=== PATIENT | male | born 1950 | race Caucasian/White ===

== ENCOUNTER → 2016-11-13 | Outpatient (CLI) | payer BC, MEDICARE ==
--- NOTE | 2016-11-13 11:40 | XR ---
"EXAMINATION TYPE: XR chest 2V DATE OF EXAM: 11/13/2016 11:24 AM HISTORY: Shortness of breath. COMPARISON: None. TECHNIQUE: Single view of the chest is submitted. FINDINGS: Demonstrated are scattered senescent parenchymal change. There is a right upper lobe mass noted measuring 3.8 x 2.8 cm. Malignancy is not excluded and further workup with CT is advised. The heart is stable. Hilar and mediastinal structures are within normal limits. Degenerative changes are seen of the dorsal spine. IMPRESSION: 1. There is a right upper lobe mass noted measuring 3.8 x 2.8 cm. Malignancy is not excluded and fur ther workup with CT is advised. A Yellow message has been communicated to Enrique Estrada DO via the [employer] | Critical Result sy stem on 11/13/2016 11:38 AM, Message ID [id number]."
== END ==
LOC: RADXRMAIN 11:13
PROVIDERS: ATTEND Family Medicine
DX: R91.8 Other nonspecific abnormal finding of lung field (principal); R06.02 Shortness of breath
CPT/HCPCS: 71020

== ENCOUNTER → 2016-11-17 | Outpatient (CLI) | payer MEDICARE ==
--- NOTE | 2016-11-17 09:59 | CT ---
EXAMINATION TYPE: CT chest wo con DATE OF EXAM: 11/17/2016 9:50 AM COMPARISON: Chest x-ray from 4 days ago. HISTORY: Patient complains of unresolving cough, chest congestion, and bronchitis. Patient had an ab normal CXR at Doctor's office. CT DLP: 296.4 mGycm. Automated Exposure Control for Dose Reduction was Utilized. TECHNIQUE: CT scan of the thorax is performed without IV contrast. FINDINGS: LUNGS: Mild underlying emphysematous change is present with apical scarring and subpleural bleb forma tion. Corresponding to chest x-ray abnormality there is suspicious oval mass in the posterior aspect right upper lobe measuring 3.1 x 1.8 cm on axial image 17. Some dependent atelectatic changes seen in both lower lobes. No pleural effusion or pneumothorax is seen bilaterally. Tracheobronchial tree is patent. MEDIASTINUM: Lack of IV contrast is noted to limit evaluation for mediastinal and especially hilar a denopathy. There is borderline right paratracheal lymph node measuring 1.4 x 1.0 cm on axial image 22 . There are prominent but subcentimeter prevascular and subcarinal lymph nodes. No cardiomegaly or pericardial effusion is seen. Mild coronary artery calcification proximal LAD is noted. OTHER: No additional significant abnormality is seen. IMPRESSION: Suspicious right upper lobe mass is confirmed, neoplasm needs to BE considered. Consider PET/CT or CT guided sampling. Case discussed with ordering physician via telephone at time of dictation. A Document Only message has been documented for Enrique Estrada DO in the [employer] system on 11/17/2016 9:57 AM, Message ID [id number].
== END | disposition home or self-care (01) ==
LOC: RADCTMAIN 07:28
PROVIDERS: ATTEND Family Medicine
DX: R91.8 Other nonspecific abnormal finding of lung field (principal)
CPT/HCPCS: 71250

== ENCOUNTER 2016-11-27 10:18 | Day surgery (SDC) | payer BC, MEDICARE ==
[2016-11-25 08:57] VITALS: BMI 25.1
[~2016-11-27 10:18] MED LIST: ALBUTEROL NEB (CONC) 2.5 MG/0.5 ML INHALATION ONE; LACTATED RINGERS 1,000 ML IV ONE; LIDOCAINE 2% (PF) 20 MG/ML 10ML INHALATION ONE
[2016-11-27 10:53] VITALS: RESP 16
[2016-11-27] MEDS ORDERED: LIDOCAINE 1% 20 ML VIAL (10MG/ML) FOR IV START INTRADERMA ONE (11:06)
[2016-11-27 11:25] LABS: Glucose,Whole Blood 92 mg/dL (75-99)
[2016-11-27] MEDS ORDERED: PROPOFOL 10 MG/ML 20 ML VIAL IV ONE (13:07)
[2016-11-27] MEDS ORDERED: LIDOCAINE 1% INJ 10MG/ML (20 ML MDV) ONE (13:07)
[2016-11-27] MEDS ORDERED: SUCCINYLCHOLINE CHLORIDE 100 MG/5 ML SYR IV ONE (13:07)
[2016-11-27] MEDS ORDERED: MIDAZOLAM 2 MG/2 ML VIAL ONE (13:07)
[2016-11-27] MEDS ORDERED: fentaNYL (PF) 50 MCG/ML 2 ML AMP ONE (13:07)
[2016-11-27] MEDS ORDERED: ePHEDrine 50 MG/ML 1 ML AMP ONE (13:07)
--- NOTE | 2016-11-27 13:10 | CT ---
EXAMINATION TYPE: CT Chest payam Cooper Protocol DATE OF EXAM: 11/27/2016 11:44 AM COMPARISON: CT chest 11/17/2016 HISTORY: 66-year-old male pre-bronchial navigation TECHNIQUE: Contiguous axial scanning of the chest without IV contrast. Imaging performed for purposes of endobronchial navigation. Both inspiratory and expiratory scanning as well as coronal and sagitta l reconstructions. CT DLP: 633 mGycm Automated exposure control for dose reduction was used. FINDINGS: Redemonstrated 3.3 cm mass posterior right upper lobe. A posterior subsegmental upper lobe bronchus e xtends to the mass. Heart is normal size without pericardial effusion. Coronary vessel calcifications are mild. Aorta nor mal caliber with conventional arch vessel branching anatomy. Redemonstrated mildly enlarged 1.2 cm ri ght tracheobronchial angle lymph node. Nonenlarged AP window lymph nodes. Some subpleural reticulations at the lung bases could represent some interstitial fibrosis. No consol idation or pleural effusion. Visualized upper abdomen shows no gross abnormality. No osseous destructive process. IMPRESSION: KNOWN 3.3 CM MASS POSTERIOR RIGHT UPPER LOBE TO WHICH A POSTERIOR SUBSEGMENTAL UPPER LOBE BRONCHUS EX TENDS. EQUIVOCAL MILDLY ENLARGED 1.2 CM RIGHT TRACHEOBRONCHIAL ANGLE LYMPH NODE.
[2016-11-27] MEDS ORDERED: LACTATED RINGERS 1,000 ML IV ONE (13:15)
--- NOTE | 2016-11-27 14:00 | P.PCN ---
Date of Procedure: 11/27/16 Preoperative Diagnosis: RUL mass Postoperative Diagnosis: RUL mass, mediastinal lymphadenopathy Anesthesia: GERARDA Surgeon: Jigna Giraldo [employer] Interpreter #1: Clarisa Montiel Estimated Blood Loss (ml): 0 Pathology: other Condition: stable Disposition: same day Operative Findings: The procedure was done on the navigational guidance. The patient was taken to the CAT scan department where the pads were applied and the patient underwent a computed tomography scan of the chest for marking and planning purposes. The CAT scan was downloaded into the bed navigational system and the target lesion in the right upper lobe was identified and marked. The navigational planning was performed and following that all this information was downloaded into the system. Then the patient was brought into the operating room and the patient was placed under general anesthesia, intubated and placed on a mechanical ventilator. The flexible bronchoscope was inserted used through the orotracheal tube and a complete airway inspection was done. The visualized airways into the trachea, bilateral mainstem bronchi, right upper lobe bronchus , right middle lobe bronchus, right lower lobe bronchus, left upper lobe bronchus, left lower lobe bronchussegments and subsegments. All of these airways were patent and within normal limits. The bronchoscope was then moved to the distal trachea with transbronchial aspirate of the right paratracheal lymph node was done using a 19-gauge cytology needle. A total of 4 passes were taken and the samples were inspected by pathology at the bedside. Following that, using the navigational bronchoscopy system, the bronchoscope was directed to the apical posterior segment of the right upper lobe. Under direct visualization, the samples of the right upper lobe lesion was taken using transbromchial biopsy and transbronchial brushings. The target lesion was approached within few millimeter distance.. At the end of the procedure flexible bronchoscope was removed. The patient was extubated and transferred to recovery in stable condition. A chest x-ray without rule out pneumothorax. The patient was discharged home once cleared by anesthesia. Operative complications. No bleeding. Total amount of bleeding was less than 5 mL.
[2016-11-27 14:13] VITALS: TEMP 97.2
--- NOTE | 2016-11-27 14:31 | XR ---
EXAMINATION TYPE: XR chest 1V DATE OF EXAM: 11/27/2016 2:22 PM COMPARISON: Prior chest x-ray November 13, 2016. CT chest earlier today. HISTORY: Right lung mass status post bronchoscopy with biopsy. TECHNIQUE: Single AP portable frontal view of the chest is obtained. FINDINGS: There is is persistent right upper lobe mass. No sizable pneumothorax is seen after bronc hoscopy with biopsy The cardiac silhouette size is within normal limits. The osseous structures are intact. IMPRESSION: No evidence of complication related to bronchoscopy and tissue sampling.
[2016-11-27] MEDS ORDERED: ALBUTEROL NEB (CONC) 2.5 MG/0.5 ML INHALATION STA (15:05)
[2016-11-27 15:43] VITALS: BP 140/70; PULSE 76
== END 2016-11-27 15:57 | disposition home or self-care (01) ==
LOC: ORWHC2ENDO 10:18
PROVIDERS: ATTEND Internal Medicine Critical Care Medicine
DX: C96.9 Malignant neoplasm of lymphoid, hematopoietic and related tissue, unspecified (principal); Z79.82 Long term (current) use of aspirin; Z79.899 Other long term (current) drug therapy; Z87.891 Personal history of nicotine dependence; E78.00 Pure hypercholesterolemia, unspecified; I73.9 Peripheral vascular disease, unspecified; E11.9 Type 2 diabetes mellitus without complications; Z88.2 Allergy status to sulfonamides; Z91.09 Other allergy status, other than to drugs and biological substances
CPT/HCPCS: 94640; 88104; 88305; 88173; 88342; 88341; 71010; 71250; 31628; 31633; 31623; 31627; J2250; J2001; J3010; J0330; J2704

== ENCOUNTER → 2016-11-29 | Outpatient (CLI) | payer MEDICARE | END | disposition home or self-care (01) | LOC: RADPETMAIN 10:12 | PROVIDERS: ATTEND Internal Medicine Critical Care Medicine | DX: Z53.9 Procedure and treatment not carried out, unspecified reason (principal) ==

== ENCOUNTER → 2017-01-24 | Outpatient (CLI) | payer MEDICARE ==
[2017-01-24 09:09] LABS: Basophils % (A) 0 %; CH 30.2; Eosinophils # (A) 0.1 k/uL (0-0.7); Eosinophils % (A) 2 %; HCT 37.8 % (39.0-53.0); HDW 2.85; HGB 12.9 gm/dL (13.0-17.5); Luc # (Auto) 0.06; Luc % (Auto) 2; Lymphocytes # (A) 0.4 k/uL (1.0-4.8); Lymphocytes % (A) 16 %; MCH 29.5 pg (25.0-35.0); MCHC 34.1 g/dL (31.0-37.0); MCV 86.5 fL (80.0-100.0); Mean Platelet Volume 7.9; Monocytes # (A) 0.1 k/uL (0-1.0); Monocytes % (A) 5 %; Neutrophils % (A) 74 %; RBC 4.37 m/uL (4.30-5.90); RDW 14.4 % (11.5-15.5); WBC 2.7 k/uL (3.8-10.6); WBC (Perox) 2.75
== END | disposition home or self-care (01) ==
LOC: LABWHC1 08:38
PROVIDERS: ATTEND Internal Medicine Hematology & Oncology
DX: C34.11 Malignant neoplasm of upper lobe, right bronchus or lung (principal); E11.9 Type 2 diabetes mellitus without complications; E78.5 Hyperlipidemia, unspecified; H35.30 Unspecified macular degeneration
CPT/HCPCS: 36415; 85025

== ENCOUNTER → 2017-02-07 | Outpatient (CLI) | payer MEDICARE ==
--- NOTE | 2017-02-10 09:14 | PE ---
Nuclear medicine PET/CT HISTORY: Lung carcinoma Patient received 15.3 mCi F-18 FDG intravenously. Delayed scanning was performed from the skull base through the mid thighs. Localization and attenuation correction CT scan was performed. Exam is correl ated to prior nuclear medicine PET/CT 06 December 2016 Neck and chest: There is been some interval improvement. No evident adenopathy, however in the retroc aval pretracheal region there is a focus of hypermetabolic uptake compatible with a small node. SUV i s 2.9 which is reduced from prior of 6.7. The right hilar and subcarinal hypermetabolic uptake is no longer evident. Right upper lobe lung soft tissue mass measures approximately 3.6 cm in transverse di mension by 2 cm in AP dimension. There is improvement, SUV is essentially equivalent to background do wn from previous measured 7.5 however. Abdomen pelvis: No adrenal mass. No evident liver mass. No suspicious hypermetabolic uptake. Postop c hange status post femoral-femoral bypass graft are noted. Osseous structures: Postop change noted to the right hip. IMPRESSION: There is improvement as compared to previous exam.
== END | disposition home or self-care (01) ==
LOC: RADPETMAIN 09:32
PROVIDERS: ATTEND Internal Medicine Critical Care Medicine
DX: R91.8 Other nonspecific abnormal finding of lung field (principal)
CPT/HCPCS: 78815; A9552

== ENCOUNTER → 2017-02-17 | Outpatient (CLI) | payer MEDICARE ==
[2017-02-17 15:30] LABS: CH 30.4; CHCM 35.1; HCT 36.7 % (39.0-53.0); HGB 12.9 gm/dL (13.0-17.5); MCH 30.8 pg (25.0-35.0); MCHC 35.3 g/dL (31.0-37.0); MCV 87.2 fL (80.0-100.0); Mean Platelet Volume 6.9; RDW 15.9 % (11.5-15.5); WBC 3.5 k/uL (3.8-10.6)
[2017-02-17 15:36] LABS: Partial Thromboplastin Time 23.5 sec (22.0-30.0); Prothrombin Time 10.6 sec (9.0-12.0)
[2017-02-17 15:37] LABS: Amorphous Sediment,Urine Rare /hpf; Appearance,Urine Turbid (Clear); Bilirubin,Urine Negative (Negative); Glucose,Urine (UA) Negative (Negative); Ketones,Urine Negative (Negative); Leukocyte Esterase,Urine Negative (Negative); Nitrite,Urine Negative (Negative); PH, Urine 7.5 (5.0-8.0); Particle Count 13132; Protein,Urine Negative (Negative); Specific Gravity,Urine 1.012 (1.001-1.035); UA Billing (MACRO vs. MICRO) MICRO; Urobilinogen,Urine <2.0 mg/dL (<2.0)
[2017-02-17 15:38] LABS: Potassium 4.5 mmol/L (3.5-5.1)
== END | disposition home or self-care (01) ==
LOC: LABPAT 14:53
PROVIDERS: ATTEND Thoracic Surgery (Cardiothoracic Vascular Surgery)
DX: Z01.812 Encounter for preprocedural laboratory examination (principal)
CPT/HCPCS: 80051; 81001; 82947; 85027; 85610; 85730; 86850; 86900; 86901

== ENCOUNTER 2017-02-20 09:50 | Inpatient (IN) | payer MEDICARE ==
[2017-02-18 09:20] VITALS: BMI 24.3
[~2017-02-20 09:50] MED LIST changes: -ALBUTEROL NEB (CONC) 2.5 MG/0.5 ML INHALATION ONE; +DEXAMETHASONE SOD PHOSPHATE 10 MG/ML 1 ML VIAL IV ONE; +HYDROmorphone 1 MG/ML 1 ML SYRINGE IVP PRN; -LACTATED RINGERS 1,000 ML IV ONE; +LIDOCAINE 1% 20 ML VIAL (10MG/ML) FOR IV START INTRADERMA PRN; -LIDOCAINE 2% (PF) 20 MG/ML 10ML INHALATION ONE; +MIDAZOLAM 2 MG/2 ML VIAL IV PRN; +ONDANSETRON 4 MG/2 ML VIAL IVP ONE; +SCOPOLAMINE 1.5MG/72HR PATCH TRANSDERM ONE; +ceFAZolin 2 GM in SODIUM CHLORIDE 0.9% 100 ML IVPB ONE; +metroNIDAZOLE-NS PMX 500 MG in SALINE 1 100ML.BAG IVPB ONE
[2017-02-20] MEDS: LACTATED RINGERS 1,000 ML IV SCH ×2 (10:20→19:03)
[2017-02-20 10:23] LABS: Glucose,Whole Blood 104 mg/dL (75-99)
[2017-02-20] MEDS ORDERED: GLYCOPYRROLATE 0.2 MG/ML 2 ML VIAL ONE (11:47)
[2017-02-20] MEDS ORDERED: fentaNYL (PF) 50 MCG/ML 2 ML AMP ONE (11:47)
[2017-02-20] MEDS ORDERED: MIDAZOLAM 2 MG/2 ML VIAL ONE (11:47)
[2017-02-20] MEDS ORDERED: NEOSTIGMINE 1 MG/ML 10 ML VIAL ONE (11:47)
[2017-02-20] MEDS ORDERED: PROPOFOL 10 MG/ML 20 ML VIAL IV ONE (11:47)
[2017-02-20] MEDS ORDERED: ePHEDrine 50 MG/ML 1 ML AMP ONE (11:47)
[2017-02-20] MEDS ORDERED: VECURONIUM 10 MG VIAL IV ONE (11:47)
[2017-02-20] MEDS ORDERED: LIDOCAINE 1% INJ 10MG/ML (20 ML MDV) ONE (11:47)
[2017-02-20] MEDS ORDERED: SUCCINYLCHOLINE CHLORIDE 100 MG/5 ML SYR IV ONE (11:47)
[2017-02-20] MEDS ORDERED: ONDANSETRON 4 MG/2 ML VIAL IVP PRN (12:42)
[2017-02-20] MEDS ORDERED: BISACODYL 10 MG SUPP RECTAL PRN (12:42)
[2017-02-20] MEDS ORDERED: METOCLOPRAMIDE 5 MG/ML 2 ML VIAL IVP PRN (12:42)
[2017-02-20] MEDS ORDERED: HYDROcodone/APAP 5-325MG 1 EACH TAB PO PRN (12:54)
[2017-02-20] MEDS ORDERED: NALOXONE 0.4 MG/ML 1 ML VIAL IV PRN (12:55)
[2017-02-20] MEDS ORDERED: LACTATED RINGERS 1,000 ML IV ONE (14:25)
[2017-02-20] MEDS: BUPIVACAINE (PF) 0.5% 31.3 ML, HYDROMORPHONE (PF) 5 MG in SODIUM CHLORIDE 0.9% 218 ML EPIDURAL PRN ×4 (15:13→17:13)
--- NOTE | 2017-02-20 15:17 | P.OP ---
Date of Procedure: 02/20/17 Preoperative Diagnosis: Lung cancer right upper lobe stage IIIa status post induction chemoradiation Postoperative Diagnosis: Same Procedure(s) Performed: Right thoracotomy, right upper lobectomy, mediastinal lymph node dissection Implants: Anesthesia: MARLON Surgeon: Sean Marie [employer] Teacher #1: Braeden Hernandez Estimated Blood Loss (ml): 50 IV fluids (ml): 800 Pathology: other (Right upper lobe, lymph node stations R4, 7, R8, R9, R 11) Condition: stable Disposition: PACU Indications for Procedure: Patient is a 66-year-old male presented with a right upper lobe carcinoma with evidence of both hilar and right paratracheal metastasis was staged as IIIa was treated with induction chemo radiation had a good response and is now admitted for right upper lobectomy Operative Findings: There were moderate adhesions in the chest cavity. The fissures were incomplete. Majority of the lymph nodes were anthracotic. There were some very densely adherent lymph nodes present in the hilum R 11 region as well as in the R4 region. Tumor was present in the posterior segment of the right upper lobe. Description of Procedure: The patient was brought to the operating room intubated with a double lumen endotracheal tube following induction of anesthesia. He was turned in the left lateral decubitus position and the right chest sterilely prepped and draped. Posterior lateral thoracotomy incision was performed. The chest was entered in the fifth interspace. Intercostals were undercut anteriorly and posteriorly and rib spreaders were placed. The chest was explored and adhesions were taken down. Dissection was begun in the fissure and the pulmonary artery was identified at the junction of the greater and lesser fissures. Attention was directed anteriorly and the branches of the superior pulmonary vein draining the upper lobe were identified. These were dissected out and encircled and ligated and divided with the Endo ANTHONY thin stapler. Dissection was carried superiorly onto the pulmonary artery and the truncus anteriosus was identified. Dissection was very difficult in this region. It was decided to move posteriorly and identify the lymph nodes. The inferior pulmonary ligament was mobilized. R9 and R8 lymph nodes were dissected out and sent for permanent section. Dissection was carried up posteriorly to the mainstem bronchus and the level VII lymph nodes were dissected out and sent for permanent section. We carried the dissection anteriorly and identified the ernesto between the upper lobe bronchus and bronchus intermedius. Gentle dissection was carried out here and we were able to then connect our initial dissection at the base of the fissures with this dissection. This allows us to divide the greater fissure posteriorly with a single firing of an Endo ANTHONY 60 medium thick stapler. Carried out dissection along the pulmonary artery identifying the posterior segmental branch of the pulmonary artery. This was dissected out and doubly ligated with 0 silk sutures and divided. Dissection was carried anteriorly beneath the lesser fissure and connected through to the dissection of the pulmonary veins anteriorly this allowed us to pass an Endo ANTHONY medium thick stapler and divided the lesser fissure. We now began dissection carefully up along the pulmonary artery to the truncus anteriosus. Carefully dissected around the truncus and were able to divide it with a Endo ANTHONY thin stapler. R 11 lymph nodes along the right upper lobe bronchus were dissected back onto the upper lobe and the bronchus was ligated and divided with an Endo ANTHONY thick stapler. Lobectomy specimen was handed off the field for permanent section. Dissection was carried up along the mainstem bronchus and beneath the azygos vein onto the trachea. No R 10 lymph nodes were identified. Dissection was continued in the right paratracheal region and a very large and fibrotic lymph node mass was identified adherent to the vena cava, careful dissection was performed to excise this in its entirety. In order to facilitate this difficult dissection, the azygos vein was divided with the Endo ANTHONY vascular stapler. On completion of the lymph node dissection good hemostasis was noted throughout. The lymph nodes were all sent for permanent section. The chest was irrigated with warm water and the lung inflated and no air leaks noted. 28- Swedish chest tube was placed through separate stab incision and positioned posterior apically. It was secured with 0 Ethibond suture. Rib blocks were performed at levels 3,4,5,6 and 7 with the Endo ice cryoablation system. The lung was again inflated. Ribs were reapproximated with #1 Vicryl. Muscle layers closed with 0 Vicryl. Subcutaneous tissues were closed with 2-0 Vicryl. Skin was closed with 3-0 Vicryl subcuticular stitch. Dry sterile dressing was applied patient was turned supine and extubated and transferred to recovery room in stable condition. Blood loss for the case was 50 mL.
[2017-02-20] MEDS ORDERED: fentaNYL (PF) 50 MCG/ML 2 ML AMP INTRATHECA ONE (15:34)
--- NOTE | 2017-02-20 15:49 | XR ---
EXAMINATION TYPE: XR chest 1V DATE OF EXAM: 02/20/2017 CLINICAL HISTORY: Postoperative right thoracotomy TECHNIQUE: Single AP portable upright view of the chest is obtained. COMPARISON: Chest x-ray from November 27, 2016. PET CT February 07, 2017. FINDINGS: There is interval right-sided partial pneumonectomy with new right apical chest tube. No s izable pneumothorax is evident. There is new subtle right-sided volume loss with tracheal shift. No s uspicious focal airspace opacity or pleural effusion is seen bilaterally. Cardiac silhouette size is within normal limits. Visualized osseous structures are intact. Small amount of subcutaneous emphysem a right chest wall is noted. IMPRESSION: Interval right-sided partial pneumonectomy with right-sided chest tube, no sizable pneumo thorax.
[2017-02-20 17:43] LABS: Basophils % (A) 0 %; CHCM 35.4; Eosinophils % (A) 0 %; HGB 12.7 gm/dL (13.0-17.5); Luc # (Auto) 0.05; Luc % (Auto) 1; Lymphocytes # (A) 0.2 k/uL (1.0-4.8); Lymphocytes % (A) 3 %; MCH 30.3 pg (25.0-35.0); MCHC 34.4 g/dL (31.0-37.0); MCV 88.1 fL (80.0-100.0); Mean Platelet Volume 6.4; Monocytes # (A) 0.3 k/uL (0-1.0); Monocytes % (A) 6 %; Neutrophils % (A) 89 %; RDW 15.9 % (11.5-15.5); WBC 4.4 k/uL (3.8-10.6); WBC (Perox) 4.94
[2017-02-20 18:12] LABS: Glucose,Whole Blood 159 mg/dL (75-99)
[2017-02-20 18:55] LABS: ALT 36 U/L (21-72); AST 35 U/L (17-59); Alkaline Phosphatase 57 U/L (38-126); Anion Gap 11 mmol/L; Blood Urea Nitrogen 15 mg/dL (9-20); Calcium 8.9 mg/dL (8.4-10.2); Carbon Dioxide 23 mmol/L (22-30); Chloride 109 mmol/L (98-107); Glucose 149 mg/dL (74-99); Non-African American GFR(MDRD) >60 (>60 ml/min/1.73 sqM); Potassium 4.2 mmol/L (3.5-5.1); Sodium 143 mmol/L (137-145); Total Bilirubin 1.1 mg/dL (0.2-1.3); Total Protein 6.2 g/dL (6.3-8.2)
[2017-02-20] MEDS: HEPARIN SODIUM,PORCINE 5,000 UNIT/ML 1 ML VIAL SQ SCH (19:04)
[2017-02-20] MEDS: DEXTROSE 5%-0.45% NACL 1,000 ML IV SCH (19:04)
[2017-02-20] MEDS ORDERED: LORATADINE 10 MG TAB PO PRN (20:02)
[2017-02-20 21:01] LABS: Hemoglobin A1C 5.7 % (4.2-6.1)
[2017-02-20] MEDS: ceFAZolin 2 GM in SODIUM CHLORIDE 0.9% 100 ML IVPB SCH (21:26)
[2017-02-20 21:31] LABS: Glucose,Whole Blood 148 mg/dL (75-99)
[2017-02-20] MEDS: INSULIN LISPRO (humaLOG) 300 UNIT/3 ML VIAL SQ SCH (21:35)
[2017-02-21] MEDS: HEPARIN SODIUM,PORCINE 5,000 UNIT/ML 1 ML VIAL SQ SCH ×4 (00:41→23:44)
[2017-02-21] MEDS: diphenhydrAMINE 25 MG CAP PO PRN ×4 (02:52→20:02)
[2017-02-21] MEDS: ceFAZolin 2 GM in SODIUM CHLORIDE 0.9% 100 ML IVPB SCH (03:06)
[2017-02-21 04:59] LABS: Anisocytosis Slight; Basophils % (A) 0 %; CH 30.7; CHCM 34.1; Eosinophils % (A) 0 %; HCT 35.2 % (39.0-53.0); HDW 2.96; HGB 11.7 gm/dL (13.0-17.5); Luc # (Auto) 0.22; Luc % (Auto) 4; Lymphocytes # (A) 0.3 k/uL (1.0-4.8); Lymphocytes % (A) 5 %; MCH 30.1 pg (25.0-35.0); MCHC 33.3 g/dL (31.0-37.0); MCV 90.4 fL (80.0-100.0); Mean Platelet Volume 7.7; Monocytes # (A) 0.7 k/uL (0-1.0); Monocytes % (A) 13 %; Neutrophils % (A) 77 %; RBC 3.89 m/uL (4.30-5.90); RDW 16.3 % (11.5-15.5); WBC 5.2 k/uL (3.8-10.6); WBC (Perox) 5.42
[2017-02-21 05:10] LABS: Anion Gap 8 mmol/L; Blood Urea Nitrogen 15 mg/dL (9-20); Calcium 8.5 mg/dL (8.4-10.2); Carbon Dioxide 24 mmol/L (22-30); Chloride 107 mmol/L (98-107); Glucose 110 mg/dL (74-99); Magnesium 2.1 mg/dL (1.6-2.3); Non-African American GFR(MDRD) >60 (>60 ml/min/1.73 sqM); Phosphorous 3.2 mg/dL (2.5-4.5); Potassium 4.3 mmol/L (3.5-5.1); Sodium 139 mmol/L (137-145)
[2017-02-21 06:31] LABS: Glucose,Whole Blood 120 mg/dL (75-99)
[2017-02-21] MEDS: INSULIN LISPRO (humaLOG) 300 UNIT/3 ML VIAL SQ SCH ×4 (06:32→20:05)
--- NOTE | 2017-02-21 07:45 | XR ---
EXAMINATION TYPE: XR chest 1V portable DATE OF EXAM: 02/21/2017 CLINICAL HISTORY: Difficulty breathing progress study. Postop right lung surgery progress study. TECHNIQUE: Single AP portable upright view of the chest is obtained. COMPARISON: Chest x-ray from one day earlier FINDINGS: There is stable right apical chest tube. No sizable pneumothorax is evident. There is pers istent subtle right -sided volume loss with mediastinal shift. There is new patchy left basilar linea r atelectasis. Cardiac silhouette size remains within normal limits. Visualized osseous structures ar e intact. Small amount of subcutaneous emphysema right chest wall is redemonstrated. IMPRESSION: New patchy left basilar linear atelectasis. No sizable right-sided pneumothorax with ches t tube in place.
[2017-02-21] MEDS: PANTOPRAZOLE 40 MG TABLET PO SCH (08:21)
[2017-02-21] MEDS ORDERED: ATORVASTATIN 40 MG TAB PO SCH (09:00)
--- NOTE | 2017-02-21 10:11 | P.PN ---
Subjective Principal diagnosis: Lung cancer right upper lobe stage IIIa, status post induction chemoradiation POD #1 right thoracotomy, right upper lobectomy, mediastinal lymph node dissection Patient is currently sitting up in bed in no acute distress. Does state he has increased pain in his right chest tube site. States he ambulated in the hallway twice yesterday. Objective - Vital Signs Vital signs: Vital Signs Temp 98.2 F 02/21/17 04:00 Pulse 80 02/21/17 07:00 Resp 18 02/21/17 07:00 BP 126/52 02/21/17 07:00 Pulse Ox 94 L 02/21/17 07:00 Intake & Output 02/20/17 02/21/17 02/21/17 18:59 06:59 18:59 Intake Total 1369.7 2740 50 Output Total 635 2295 215 Balance 734.7 445 -165 Weight 82.7 kg 84.1 kg Intake: IV 1319.7 650 50 Dextrose 5%-0.45% NaCl 1, 450 50 000 ml @ 50 mls/hr IV . Q20H DESMOND Rx#:[id number] ceFAZolin 2 gm In Sodium 200 Chloride 0.9% 100 ml @ 100 mls/hr IVPB Q8H DESMOND Rx#:[id number] Intake, IV Titration 50 50 Amount Dextrose 5%-0.45% NaCl 1, 50 50 000 ml @ 50 mls/hr IV . Q20H DESMOND Rx#:[id number] Oral 2040 Output: Chest Tube Drainage 265 40 Chest Tube Right Lateral 265 40 Chest Urine 585 2030 175 Estimated Blood Loss 50 Other: Voiding Method Indwelling Catheter Indwelling Catheter - Constitutional General appearance: Present: cooperative, no acute distress - Respiratory Details: Lungs sounds diminished bilaterally. Respirations even, nonlabored. Currently on 2 L nasal cannula with oxygen saturation 99%. Able to achieve 2500 ml on incentive spirometry. Right pleural chest tube to -20 cm wall suction, drained 175 ml fluid overnight, 500 mL since surgery. No air leak present. - Cardiovascular Details: S1, S2 present. Regular rate and rhythm, normal sinus rhythm on telemetry. - Gastrointestinal Gastrointestinal Comment(s): Abdomen soft, nontender, nondistended. Active bowel sounds 4 quadrants. Tolerating diet. - Genitourinary Genitourinary Comment(s): Lemon present draining clear, yellow urine. Output 75-350 mL/h overnight. - Musculoskeletal Musculoskeletal: Present: gait normal, strength equal bilaterally - Psychiatric Psychiatric: Present: A&O x's 3, appropriate affect, intact judgment & insight - Allied health notes Allied health notes reviewed: nursing - Labs CBC & Chem 7: 02/21/17 04:50 02/21/17 04:50 Labs: Abnormal Lab Results - Last 24 Hours (Table) 02/20/17 02/20/17 02/20/17 Range/Units 10:19 17:28 18:11 RBC 4.20 L (4.30-5.90) m/uL Hgb 12.7 L (13.0-17.5) gm/dL Hct 37.0 L (39.0-53.0) % RDW 15.9 H (11.5-15.5) % Lymphocytes # 0.2 L (1.0-4.8) k/uL Chloride (98-107) mmol/L Glucose (74-99) mg/dL POC Glucose (mg/dL) 104 H 159 H (75-99) mg/dL Total Protein (6.3-8.2) g/dL 02/20/17 02/20/17 02/21/17 Range/Units 18:25 21:29 04:50 RBC 3.89 L (4.30-5.90) m/uL Hgb 11.7 L (13.0-17.5) gm/dL Hct 35.2 L (39.0-53.0) % RDW 16.3 H (11.5-15.5) % Lymphocytes # 0.3 L (1.0-4.8) k/uL Chloride 109 H (98-107) mmol/L Glucose 149 H (74-99) mg/dL POC Glucose (mg/dL) 148 H (75-99) mg/dL Total Protein 6.2 L (6.3-8.2) g/dL 02/21/17 02/21/17 Range/Units 04:50 06:28 RBC (4.30-5.90) m/uL Hgb (13.0-17.5) gm/dL Hct (39.0-53.0) % RDW (11.5-15.5) % Lymphocytes # (1.0-4.8) k/uL Chloride (98-107) mmol/L Glucose 110 H (74-99) mg/dL POC Glucose (mg/dL) 120 H (75-99) mg/dL Total Protein (6.3-8.2) g/dL - Imaging and Cardiology Chest x-ray: image reviewed Assessment and Plan (1) Cancer of upper lobe of right lung Status: Acute (2) Mass of upper lobe of right lung Status: Acute (3) Diabetes mellitus type 2 in nonobese Status: Acute (4) Hypertension Status: Acute (5) Hyperlipidemia Status: Acute (6) Tobacco dependence in remission Status: Acute (7) COPD (chronic obstructive pulmonary disease) Status: Acute (8) PAD (peripheral artery disease) Status: Acute Plan: 1. Maintain chest tube to -20 cm wall suction. Monitor output. 2. Wean O2 as tolerated. Encourage incentive spirometry use. 3. Await pathology results. 4. Continue current medication regimen. Medical comorbidities to be managed by internal medicine service. 5. Continue pain management with epidural per anesthesia services with breakthrough pain medication as ordered. 6. Monitor daily labs, chest x-rays. 7. Increase activity, ambulate in hallway. 8. GI/DVT prophylaxis. 9. More recommendations as patient progresses. Time with Patient: Greater than 30
--- NOTE | 2017-02-21 10:21 | P.PN ---
Progress Note - Text 02/21 950am 66-year-old male status post right thoracotomy with Dr. Marie. Patient is in the ICU, seen this morning elevated for pain control epidural solution running at 7 mL an hour with a pain score of 4 at rest and 8 on movement of coughing. Hemodynamically stable, no motor or sensory deficits. Epidural solution increased from 9 mL an hour and the nurse was informed..
[2017-02-21 12:57] LABS: Glucose,Whole Blood 105 mg/dL (75-99)
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
[2017-02-21] MEDS: ASCORBIC ACID 500 MG TAB PO SCH (13:20)
[2017-02-21] MEDS: MULTIVITAMINS, THERA 1 EACH TAB PO SCH (13:20)
[2017-02-21] MEDS: DEXTROSE 5%-0.45% NACL 1,000 ML IV SCH (14:12)
[2017-02-21] MEDS ORDERED: TEMAZEPAM 15 MG CAP PO PRN (16:02)
[2017-02-21] MEDS: BUPIVACAINE (PF) 0.5% 31.3 ML, HYDROMORPHONE (PF) 5 MG in SODIUM CHLORIDE 0.9% 218 ML EPIDURAL PRN (16:27)
[2017-02-21] MEDS: KETOROLAC 30 MG/ML 1 ML VIAL IVP SCH ×3 (16:28→23:41)
[2017-02-21] MEDS: CALCIUM CARB-VIT D 500MG-200UN 1 EACH TAB PO SCH (18:20)
[2017-02-21] MEDS: MAGNESIUM OXIDE 400 MG TAB PO SCH (18:20)
[2017-02-21 18:21] LABS: Glucose,Whole Blood 119 mg/dL (75-99)
[2017-02-21 20:03] LABS: Glucose,Whole Blood 135 mg/dL (75-99)
[2017-02-21] MEDS: VIT A,C & E-LUTEIN-MINERALS 1 EACH TAB PO SCH (20:58)
[2017-02-21] MEDS: ATORVASTATIN 10 MG TAB PO SCH (20:58)
[2017-02-21] MEDS ORDERED: ALBUMIN HUMAN 5% 250 ML in EMPTY BAG 1 BAG IVPB ONE (22:29)
--- NOTE | 2017-02-21 22:44 | CONS ---
DATE OF CONSULTATION: 02/21/2017 REASON FOR CONSULTATION: Advice regarding diabetes and other multiple medical issues requested by Dr. Marie. HISTORY OF PRESENT ILLNESS: This 66-year-old gentleman with a past history of diabetes type 2, GERD, hyperlipidemia, non-small cell lung cancer, stage IIIA, being followed by Dr. Estrada and Dr. Giraldo in the outpatient setting, underwent right thoracotomy, right upper lobectomy with mediastinal lymph node dissection for lung cancer. Right upper lobe stage IIIA, status post the induction of chemoradiation by Dr. Marie. Postoperatively, patient is closely monitored. I see at this time the patient has chest tube in situ. Patient complains of pain. Patient is complaining of insomnia, also. The blood sugars have been followed, are between 110 and 105. There is no history of any fever, rigors, chills. No history of headache, loss of consciousness, seizures. PAST MEDICAL HISTORY: History of diabetes mellitus, history of GERD, hyperlipidemia, non-small cell lung cancer, history of anxiety. Medications prior to admission include the home medications are: 1. Vitamin E. 2. Zinc. 3. Copper. 4. Lutein 1 capsule p.o. b.i.d. 5. [place]-3 fatty acids 1 capsule daily. 6. Multivitamin 1 p.o. daily. 7. [place] 5 mg every 6 hours p.r.n. 8. Calcium with vitamin D3, 1 p.o. daily. 9. Zocor 20 mg p.o. q.h.s. 10. Tylenol 500 b.i.d. p.r.n. 11. Zantac 150 mg p.o. daily p.r.n. 12. Magnesium oxide 250 mg p.o. daily. 13. Claritin 10 mg daily p.r.n. 14. Glucosamine 750 mg p.o. daily. 15. Vitamin C 500 mg p.o. daily. 16. Motrin 200 mg to 400 mg every 6 hours p.r.n. ALLERGIES: IODINE, OTT, PERFUMES, SULFA. FAMILY HISTORY: Leukemia in the family. SOCIAL HISTORY: Previous history of smoking. No history of current smoking or alcohol intake. REVIEW OF SYSTEMS: ENT: No diminishing hearing. No diminished vision. CARDIOVASCULAR: No angina or palpitations. The rest as mentioned earlier. RESPIRATORY: As mentioned earlier. GI: No nausea. : No dysuria. NERVOUS: No numbness or weakness. ALLERGY/IMMUNOLOGY: No asthma or hay fever. MUSCULOSKELETAL: As mentioned earlier. HEMATOLOGY/ONCOLOGY: No history of anemia. ENDOCRINE: History of diabetes. No history of hypothyroidism. CONSTITUTIONAL: As mentioned earlier. DERMATOLOGY: Negative. RHEUMATOLOGY: Negative. PSYCHIATRY: As mentioned earlier. PHYSICAL EXAM: Patient alert and oriented x3. Pulse is 79, blood pressure 120/60, respirations 16, temperature 99.2, pulse ox 97% on room air. HEENT: Conjunctivae normal. Oral mucosa moist. NECK: No jugular venous distention. No carotid bruits. No lymph node enlargement. No thyroid enlargement. CARDIOVASCULAR: S1 and S2 muffled. No S3. No S4. RESPIRATORY: Breath sounds diminished in the bases. A few scattered rhonchi. Breath sounds markedly diminished on the right side. Chest tube drain is present. Otherwise, no bronchial breath sounds. ABDOMEN: Soft, nontender. No mass palpable. LEGS: No edema. No swelling. NERVOUS SYSTEM: Higher functions as mentioned earlier. Moves all 4 limbs. No focal motor or sensory deficits. LYMPHATIC: No lymphadenopathy in neck, axillae or groins. SKIN: No ulcer, rash, bleeding. LABS: WBC 5.8, hemoglobin is 11.7. Otherwise sod 139, potassium 4.3, glucose 110, 120, 105. ASSESSMENT: 1. Status post right thoracotomy, right upper lobectomy and mediastinal lymph node dissection for non-small cell lung cancer, right upper lobe stage IIIA, status post induction of chemotherapy, radiation. 2. Diabetes mellitus type 2. 3. History of gastroesophageal reflux disease. 4. Hyperlipidemia. 5. History of degenerative joint disease. 6. History of macular degeneration. 7. History of peripheral vascular disease with history of previous femoral-femoral vascular bypass. 8. History open reduction and internal fixation of the right femur. 9. History of anxiety, not otherwise specified. 10. Remote history of nicotine dependence. 11. FULL CODE. RECOMMENDATIONS AND DISCUSSION: In this 66-year-old gentleman who presented with multiple complex medical issues, we will monitor the patient closely, continue with current medications and symptomatic treatment. Otherwise, I recommend to resume the home medications, DVT prophylaxis, incentive spirometry. Closely follow with Pulmonary. Guarded prognosis because of multiple complex medical issues. Further recommendations to follow. See orders for further details. Patient may be asked to follow with Dr. Enrique Estrada closely after discharge. Thank you, Dr. Marie, for letting us participate in this patient.
[2017-02-22] MEDS: diphenhydrAMINE 25 MG CAP PO PRN ×3 (02:52→20:06)
[2017-02-22 03:06] LABS: Glucose,Whole Blood 107 mg/dL (75-99)
[2017-02-22 04:16] LABS: Anisocytosis Slight; Basophils % (A) 0 %; CH 30.7; CHCM 33.8; Eosinophils # (A) 0.1 k/uL (0-0.7); Eosinophils % (A) 1 %; HCT 32.1 % (39.0-53.0); HDW 3.06; HGB 10.7 gm/dL (13.0-17.5); Luc # (Auto) 0.21; Luc % (Auto) 4; Lymphocytes # (A) 0.5 k/uL (1.0-4.8); Lymphocytes % (A) 10 %; MCH 30.5 pg (25.0-35.0); MCHC 33.3 g/dL (31.0-37.0); MCV 91.5 fL (80.0-100.0); Mean Platelet Volume 7.9; Monocytes # (A) 0.7 k/uL (0-1.0); Monocytes % (A) 14 %; Neutrophils # (A) 3.3 k/uL (1.3-7.7); Neutrophils % (A) 70 %; RBC 3.51 m/uL (4.30-5.90); WBC 4.7 k/uL (3.8-10.6); WBC (Perox) 4.49
[2017-02-22 04:43] LABS: Anion Gap 6 mmol/L; Blood Urea Nitrogen 23 mg/dL (9-20); Calcium 8.2 mg/dL (8.4-10.2); Carbon Dioxide 26 mmol/L (22-30); Chloride 100 mmol/L (98-107); Glucose 123 mg/dL (74-99); Non-African American GFR(MDRD) >60 (>60 ml/min/1.73 sqM); Phosphorous 2.6 mg/dL (2.5-4.5); Potassium 4.3 mmol/L (3.5-5.1); Sodium 132 mmol/L (137-145)
[2017-02-22] MEDS: KETOROLAC 30 MG/ML 1 ML VIAL IVP SCH ×4 (05:45→23:52)
--- NOTE | 2017-02-22 07:33 | XR ---
EXAMINATION TYPE: XR chest 1V portable DATE OF EXAM: 02/22/2017 CLINICAL HISTORY: Difficulty breathing progress study. Postop right partial pneumonectomy. TECHNIQUE: Single AP portable upright view of the chest is obtained. COMPARISON: Chest x-ray from one day earlier FINDINGS: There is stable right sided chest tube. No sizable pneumothorax is evident. There is persi stent right -sided volume loss with mediastinal shift. There is persistent patchy left basilar linear atelectasis. Some increased right lung markings may reflect developing edema and/or infiltrates. Car diac silhouette size remains within normal limits. Visualized osseous structures are intact. Increasi ng subcutaneous emphysema right chest wall is noted. IMPRESSION: Increasing right-sided subcutaneous emphysema noted. No new sizable pneumothorax is noted . Subtle increased opacity right lung may reflect developing edema and/or infiltrates. Patchy left ba silar atelectasis is stable.
[2017-02-22] MEDS ORDERED: IPRATROPIUM-ALBUTEROL 3 ML NEB INHALATION PRN (07:57)
--- NOTE | 2017-02-22 08:04 | P.PN ---
Subjective Principal diagnosis: Lung cancer right upper lobe stage IIIa, status post induction chemoradiation POD #2 right thoracotomy, right upper lobectomy, mediastinal lymph node dissection Patient is currently sitting up in bed in no acute distress. States his pain is better controlled. Chest tube placed to waterseal yesterday. Patient had low urine output overnight, 250 mL albumin infused with increased diuresis. Objective - Vital Signs Vital signs: Vital Signs Temp 98.3 F 02/22/17 04:00 Pulse 69 02/22/17 07:00 Resp 14 02/22/17 07:00 BP 90/49 02/22/17 07:00 Pulse Ox 97 02/22/17 07:00 Intake & Output 02/21/17 02/22/17 02/22/17 18:59 06:59 18:59 Intake Total 1026.65 1930 Output Total 3075 1246 Balance -2048.35 684 Weight 84.1 kg 84.7 kg Intake: IV 280 120 Dextrose 5%-0.45% NaCl 1, 280 120 000 ml @ 50 mls/hr IV . Q20H [facility] Rx#:[id number] Intake, IV Titration 146.65 250 Amount Albumin Human 5% 250 ml 250 In Empty Bag 1 bag @ 250 mls/hr IVPB ONCE ONE Rx#: [id number] Bupivacaine (Pf) 0.5% 31. 146.65 3 ml Hydromorphone (Pf) 5 mg In Sodium Chloride 0. 9% 218 ml @ Per Protocol EPIDURAL .Q0M PRN Rx#: [id number] Oral 600 1560 Output: Chest Tube Drainage 300 440 Chest Tube Right Lateral 300 440 Chest Urine 2775 806 Other: Voiding Method Indwelling Catheter Indwelling Catheter ABP, PAP, CO, CI - Last Documented Arterial Blood Pressure 138/48 - Constitutional General appearance: Present: cooperative, no acute distress - Respiratory Details: Lungs sounds diminished bilaterally. Respirations even, nonlabored. Currently on 2 L nasal cannula with oxygen saturation 97%. Able to achieve 2000 mL on his incentive spirometry. Right pleural chest tube to waterseal, drained 350 mL serous fluid overnight, 700 mL in the last 24 hours. - Cardiovascular Details: S1, S2 present. Regular rate and rhythm, normal sinus rhythm on telemetry. - Gastrointestinal Gastrointestinal Comment(s): Abdomen soft, nontender, nondistended. Active bowel sounds 4 quadrants. Tolerating diet. - Genitourinary Genitourinary Comment(s): Lemon present draining clear, yellow urine. Urine output 20-75 mL/h overnight with one episode of 170 mL after albumin given. - Musculoskeletal Musculoskeletal Comment(s): Patient has been ambulating in the hallway. Musculoskeletal: Present: gait normal, strength equal bilaterally - Psychiatric Psychiatric: Present: A&O x's 3, appropriate affect, intact judgment & insight - Allied health notes Allied health notes reviewed: nursing - Labs CBC & Chem 7: 02/22/17 04:10 02/22/17 04:10 Labs: Abnormal Lab Results - Last 24 Hours (Table) 02/21/17 02/21/17 02/21/17 Range/Units 12:56 18:19 20:01 RBC (4.30-5.90) m/uL Hgb (13.0-17.5) gm/dL Hct (39.0-53.0) % RDW (11.5-15.5) % Plt Count (150-450) k/uL Lymphocytes # (1.0-4.8) k/uL Sodium (137-145) mmol/L BUN (9-20) mg/dL Glucose (74-99) mg/dL POC Glucose (mg/dL) 105 H 119 H 135 H (75-99) mg/dL Calcium (8.4-10.2) mg/dL 02/22/17 02/22/17 02/22/17 Range/Units 03:03 04:10 04:10 RBC 3.51 L (4.30-5.90) m/uL Hgb 10.7 L (13.0-17.5) gm/dL Hct 32.1 L (39.0-53.0) % RDW 16.0 H (11.5-15.5) % Plt Count 138 L (150-450) k/uL Lymphocytes # 0.5 L (1.0-4.8) k/uL Sodium 132 L (137-145) mmol/L BUN 23 H (9-20) mg/dL Glucose 123 H (74-99) mg/dL POC Glucose (mg/dL) 107 H (75-99) mg/dL Calcium 8.2 L (8.4-10.2) mg/dL - Imaging and Cardiology Chest x-ray: report reviewed, image reviewed Assessment and Plan (1) Cancer of upper lobe of right lung Status: Acute (2) Mass of upper lobe of right lung Status: Acute (3) Diabetes mellitus type 2 in nonobese Status: Acute (4) Hypertension Status: Acute (5) Hyperlipidemia Status: Acute (6) Tobacco dependence in remission Status: Acute (7) COPD (chronic obstructive pulmonary disease) Status: Acute (8) PAD (peripheral artery disease) Status: Acute Plan: 1. Maintain chest tube to waterseal. Monitor output. 2. Wean O2 as tolerated. Encourage incentive spirometry use. 3. Await pathology results. 4. Continue current medication regimen. Medical comorbidities to be managed by internal medicine service. 5. Continue pain management with epidural per anesthesia services with breakthrough pain medication as ordered. Toradol added yesterday with good results. 6. Monitor daily labs, chest x-rays. 7. Increase activity, ambulate in hallway. 8. GI/DVT prophylaxis. 9. More recommendations as patient progresses. Time with Patient: Greater than 30
[2017-02-22 08:26] LABS: Glucose,Whole Blood 120 mg/dL (75-99)
[2017-02-22] MEDS: PANTOPRAZOLE 40 MG TABLET PO SCH (08:36)
[2017-02-22] MEDS: HEPARIN SODIUM,PORCINE 5,000 UNIT/ML 1 ML VIAL SQ SCH ×3 (08:36→23:44)
[2017-02-22] MEDS: GLUCOSAMINE SULFATE PO SCH (08:36)
[2017-02-22] MEDS: INSULIN LISPRO (humaLOG) 300 UNIT/3 ML VIAL SQ SCH ×4 (08:38→21:44)
[2017-02-22] MEDS: VIT A,C & E-LUTEIN-MINERALS 1 EACH TAB PO SCH ×2 (08:38→20:05)
[2017-02-22] MEDS: IPRATROPIUM-ALBUTEROL 3 ML NEB INHALATION SCH ×2 (11:02→21:28)
[2017-02-22 12:39] LABS: Glucose,Whole Blood 113 mg/dL (75-99)
[2017-02-22] MEDS: MULTIVITAMINS, THERA 1 EACH TAB PO SCH (12:39)
[2017-02-22] MEDS: MAGNESIUM OXIDE 400 MG TAB PO SCH (12:39)
[2017-02-22] MEDS: CALCIUM CARB-VIT D 500MG-200UN 1 EACH TAB PO SCH (12:39)
[2017-02-22] MEDS: ASCORBIC ACID 500 MG TAB PO SCH (12:40)
--- NOTE | 2017-02-22 12:52 | P.PN ---
Subjective 66-year-old male patient was initially referred to [place] on 11/21/2016 for an abnormal CAT scan of the chest. The patient had a lung mass that was suspicious for malignancy. The patient had a 3 x 1.7 cm right upper lobe mass in addition to right paratracheal lymphadenopathy measuring 1.4 x 1.0 cm in size. The patient had a bronchoscopy and transbronchial needle aspirate of the right paratracheal lymph node showed non-small cell lung cancer/adenocarcinoma. Based on this, the patient was referred to medical oncology and general surgery. The patient was diagnosed having stage IIIa non-small cell lung cancer. The patient was given a combination of chemoradiation therapy and subsequent PET scan showed marked response and there was interval improvement without any evidence of lymphadenopathy within the mediastinum. The right hilum and subcarinal hypermetabolic uptake was no longer evident. The right upper lobe soft tissue mass was also measuring down to 2 cm in size and there was no distant metastases. Based on this, the patient was taken to the operating room for a right thoracotomy and right upper lobectomy and mediastinal lymph node dissection. Today the patient is postop day #1. The patient is doing extremely well. Chest tube is in place. There is no evidence of air leak. Chest x-ray from today shows adequate positioning of the right- sided chest tube and that is no evidence of pneumothorax. Pain is under excellent control with epidural bupivacaine and Dilaudid. The patient is hemodynamic is stable. He has no specific complaints. He had are 4, 7, 8 and 19 and 11 lymph nodes dissected and the pathology is still pending. On 02/22/2017, the patient is postop day #2. The patient doing extremely well. Chest tube has drained approximately 4 50 mL overnight. No evidence of air leak. The patient has some limited amount of subcutaneous emphysema over the right anterior chest. The chest x-ray showed no evidence of any pneumothorax. No respiratory distress. Using incentive spirometer. The epidural Dilaudid is being weaned out. The patient was a bit sleepy yesterday and this was attributed to the epidural Dilaudid. He improved after the dose was weaned down. Otherwise, no other significant events overnight. Is tolerating his diet. No nausea or vomiting. He has DVT prophylaxis. Objective - Vital Signs Vital signs: Vital Signs Temp 98.6 F 02/22/17 12:00 Pulse 78 02/22/17 12:00 Resp 19 02/22/17 12:00 BP 90/49 02/22/17 07:00 Pulse Ox 95 02/22/17 12:00 Intake & Output 02/21/17 02/22/17 02/22/17 18:59 06:59 18:59 Intake Total 1026.65 1930 905.2 Output Total 3075 1246 905 Balance -2048.35 684 0.2 Weight 84.1 kg 84.7 kg 84.7 kg Intake: IV 280 120 40 Dextrose 5%-0.45% NaCl 1, 280 120 40 000 ml @ 50 mls/hr IV . Q20H [facility] Rx#:[id number] Intake, IV Titration 146.65 250 145.2 Amount Albumin Human 5% 250 ml 250 In Empty Bag 1 bag @ 250 mls/hr IVPB ONCE ONE Rx#: [id number] Bupivacaine (Pf) 0.5% 31. 146.65 145.2 3 ml Hydromorphone (Pf) 5 mg In Sodium Chloride 0. 9% 218 ml @ Per Protocol EPIDURAL .Q0M PRN Rx#: [id number] Oral 600 1560 720 Output: Chest Tube Drainage 300 440 110 Chest Tube Right Lateral 300 440 110 Chest Urine 2775 806 795 Other: Voiding Method Indwelling Catheter Indwelling Catheter Indwelling Catheter ABP, PAP, CO, CI - Last Documented Arterial Blood Pressure 118/51 - Exam Head exam was generally normal. There was no scleral icterus or corneal arcus. Mucous membranes were moist.Neck was supple and without jugular venous distension, thyromegaly, or carotid bruits. Carotids were easily palpable bilaterally. There was no adenopathy. Lung sounds are diminished in the right compared to left and there is a right-sided chest tube in place.Cardiac exam revealed the PMI to be normally situated and sized. The rhythm was regular and no extrasystoles were noted during several minutes of auscultation. The first and second heart sounds were normal and physiologic splitting of the second heart sound was noted. There were no murmurs, rubs, clicks, or gallops.Abdominal exam revealed normal bowel sounds. The abdomen was soft, non- tender, and without masses, organomegaly, or appreciable enlargement of the abdominal aorta. Examination of the extremities revealed easily palpable radial , femoral and pedal pulses. There was no cyanosis, clubbing or edema. - Labs CBC & Chem 7: 02/22/17 04:10 02/22/17 04:10 Labs: Abnormal Lab Results - Last 24 Hours (Table) 02/21/17 02/21/17 02/21/17 Range/Units 12:56 18:19 20:01 RBC (4.30-5.90) m/uL Hgb (13.0-17.5) gm/dL Hct (39.0-53.0) % RDW (11.5-15.5) % Plt Count (150-450) k/uL Lymphocytes # (1.0-4.8) k/uL Sodium (137-145) mmol/L BUN (9-20) mg/dL Glucose (74-99) mg/dL POC Glucose (mg/dL) 105 H 119 H 135 H (75-99) mg/dL Calcium (8.4-10.2) mg/dL 02/22/17 02/22/17 02/22/17 Range/Units 03:03 04:10 04:10 RBC 3.51 L (4.30-5.90) m/uL Hgb 10.7 L (13.0-17.5) gm/dL Hct 32.1 L (39.0-53.0) % RDW 16.0 H (11.5-15.5) % Plt Count 138 L (150-450) k/uL Lymphocytes # 0.5 L (1.0-4.8) k/uL Sodium 132 L (137-145) mmol/L BUN 23 H (9-20) mg/dL Glucose 123 H (74-99) mg/dL POC Glucose (mg/dL) 107 H (75-99) mg/dL Calcium 8.2 L (8.4-10.2) mg/dL 02/22/17 02/22/17 Range/Units 08:25 12:36 RBC (4.30-5.90) m/uL Hgb (13.0-17.5) gm/dL Hct (39.0-53.0) % RDW (11.5-15.5) % Plt Count (150-450) k/uL Lymphocytes # (1.0-4.8) k/uL Sodium (137-145) mmol/L BUN (9-20) mg/dL Glucose (74-99) mg/dL POC Glucose (mg/dL) 120 H 113 H (75-99) mg/dL Calcium (8.4-10.2) mg/dL Assessment and Plan Plan: Assessment 1 stage IIIa non-small cell lung cancer/adenocarcinoma status post chemo and radiation therapy Berny status post right upper lobe resection through a thoracotomy and mediastinal lymph node dissection and the patient is postop day #2 2 diabetes mellitus 3 peripheral vascular disease 4 hyperlipidemia 5 right chest to subcutaneous emphysema Plan Patient is doing well. Keep the chest tube in place. Monitor the output. Chest x-ray from today shows adequate expansion of the right lung. There is some limited subcutaneous emphysema. Nevertheless, the patient has no pneumothorax or air leaks. Keep the chest tube in place for 24 hours and monitor the output and may remove it over the next 24 hours of the output drops considerably. Use incentive spirometer. His condition is stable.
[2017-02-22 16:38] LABS: Glucose,Whole Blood 115 mg/dL (75-99)
[2017-02-22] MEDS: ATORVASTATIN 10 MG TAB PO SCH (20:05)
--- NOTE | 2017-02-22 21:02 | P.PN ---
Progress Note - Text 02/22 2110 66-year-old male status post thoracotomy by Dr. Marie. Patient has an epidural for postop pain control, running at 7 mL an hour. VAS of 0 at rest and 4 with movement. Has been able to ambulate today. Plan to continue epidural infusion
[2017-02-22 21:40] LABS: Glucose,Whole Blood 110 mg/dL (75-99)
[2017-02-22] MEDS: BUPIVACAINE (PF) 0.5% 31.3 ML, HYDROMORPHONE (PF) 5 MG in SODIUM CHLORIDE 0.9% 218 ML EPIDURAL PRN (22:59)
[2017-02-23] MEDS: diphenhydrAMINE 25 MG CAP PO PRN (03:08)
[2017-02-23] MEDS: MORPHINE SULFATE 2 MG/ML SYRINGE IV PRN ×2 (03:08→06:51)
[2017-02-23] MEDS: INSULIN LISPRO (humaLOG) 300 UNIT/3 ML VIAL SQ SCH ×4 (05:50→20:52)
[2017-02-23] MEDS: PANTOPRAZOLE 40 MG TABLET PO SCH (05:51)
[2017-02-23 05:57] LABS: Glucose,Whole Blood 92 mg/dL (75-99)
[2017-02-23] MEDS: KETOROLAC 30 MG/ML 1 ML VIAL IVP SCH ×4 (05:58→22:59)
[2017-02-23 06:48] LABS: Basophils % (A) 1 %; CH 30.8; CHCM 33.7; Eosinophils # (A) 0.1 k/uL (0-0.7); Eosinophils % (A) 2 %; HCT 33.7 % (39.0-53.0); HDW 3.05; HGB 11.2 gm/dL (13.0-17.5); Luc # (Auto) 0.16; Luc % (Auto) 4; Lymphocytes # (A) 0.4 k/uL (1.0-4.8); Lymphocytes % (A) 12 %; MCH 30.4 pg (25.0-35.0); MCHC 33.1 g/dL (31.0-37.0); Monocytes # (A) 0.4 k/uL (0-1.0); Monocytes % (A) 12 %; Neutrophils # (A) 2.5 k/uL (1.3-7.7); Neutrophils % (A) 69 %; RBC 3.66 m/uL (4.30-5.90); WBC 3.6 k/uL (3.8-10.6); WBC (Perox) 3.69
[2017-02-23 06:52] LABS: Anion Gap 6 mmol/L; Blood Urea Nitrogen 19 mg/dL (9-20); Calcium 8.9 mg/dL (8.4-10.2); Carbon Dioxide 30 mmol/L (22-30); Chloride 101 mmol/L (98-107); Glucose 86 mg/dL (74-99); Non-African American GFR(MDRD) >60 (>60 ml/min/1.73 sqM); Potassium 4.5 mmol/L (3.5-5.1); Sodium 137 mmol/L (137-145)
[2017-02-23] MEDS: IPRATROPIUM-ALBUTEROL 3 ML NEB INHALATION SCH ×3 (07:38→21:03)
--- NOTE | 2017-02-23 08:12 | XR ---
EXAMINATION TYPE: XR chest 1V portable DATE OF EXAM: 02/23/2017 COMPARISON: 02/22/2017 HISTORY: Post right thoracotomy TECHNIQUE: Single frontal view of the chest is obtained. FINDINGS: Subcutaneous emphysema, postsurgical change, and right-sided chest tube are stable. No siz able pneumothorax. Left lung clear. Arthropathy of the AC joints. IMPRESSION: 1. Postsurgical changes with subcutaneous emphysema extends in the soft tissues of the neck. No sizab le pneumothorax.
--- NOTE | 2017-02-23 08:48 | P.PN ---
Subjective Principal diagnosis: Lung cancer right upper lobe stage IIIa, status post induction chemoradiation POD #3 right thoracotomy, right upper lobectomy, mediastinal lymph node dissection Patient is currently sitting up in bed in no acute distress. States his pain is better controlled. Chest tube to waterseal > 24 hours. Epidural fell out last night, anesthesia where, patient medicated overnight with morphine IV push 2. Lemon removed yesterday, patient had urinary retention and Lemon was reinserted. Discontinued again this morning since epidural no longer present. Objective - Vital Signs Vital signs: Vital Signs Temp 96.8 F L 02/23/17 03:23 Pulse 75 02/23/17 03:23 Resp 18 02/23/17 03:23 BP 119/60 02/23/17 03:23 Pulse Ox 95 02/23/17 03:23 Intake & Output 02/22/17 02/23/17 02/23/17 18:59 06:59 18:59 Intake Total 2145.2 316.8 Output Total 1935 2340 Balance 210.2 -2023.2 Weight 84.7 kg 84.1 kg Intake: IV 40 160 0.9 @ 10 ml/hr 160 Dextrose 5%-0.45% NaCl 1, 40 000 ml @ 50 mls/hr IV . Q20H [facility] Rx#:[id number] Intake, IV Titration 145.2 156.8 Amount Bupivacaine (Pf) 0.5% 31. 145.2 156.8 3 ml Hydromorphone (Pf) 5 mg In Sodium Chloride 0. 9% 218 ml @ Per Protocol EPIDURAL .Q0M PRN Rx#: [id number] Oral 1960 Output: Chest Tube Drainage 240 140 Chest Tube Right Lateral 240 140 Chest Urine 1695 2200 Other: Voiding Method Urinal Indwelling Catheter # Voids 0 ABP, PAP, CO, CI - Last Documented Arterial Blood Pressure 134/54 - Constitutional General appearance: Present: cooperative, no acute distress - Respiratory Details: Lungs sounds diminished bilaterally. Respirations even, nonlabored. Currently on room air with oxygen saturation 95%. Able to achieve 1750 mL on his incentive spirometry. Right pleural chest tube to waterseal, 120 mL serous drainage overnight, 450 mL the last 24 hours. - Cardiovascular Details: S1, S2 present. Regular rate and rhythm, normal sinus rhythm on telemetry. - Gastrointestinal Gastrointestinal Comment(s): Abdomen soft, nontender, nondistended. Active bowel sounds 4 quadrants. Tolerating diet. - Genitourinary Genitourinary Comment(s): Due to void post Lemon removal. - Musculoskeletal Musculoskeletal: Present: gait normal, strength equal bilaterally - Psychiatric Psychiatric: Present: A&O x's 3, appropriate affect, intact judgment & insight - Allied health notes Allied health notes reviewed: nursing - Labs CBC & Chem 7: 02/23/17 06:15 02/23/17 06:15 Labs: Abnormal Lab Results - Last 24 Hours (Table) 02/22/17 02/22/17 02/22/17 Range/Units 08:25 12:36 16:30 WBC (3.8-10.6) k/uL RBC (4.30-5.90) m/uL Hgb (13.0-17.5) gm/dL Hct (39.0-53.0) % RDW (11.5-15.5) % Lymphocytes # (1.0-4.8) k/uL POC Glucose (mg/dL) 120 H 113 H 115 H (75-99) mg/dL 02/22/17 02/23/17 Range/Units 21:39 06:15 WBC 3.6 L (3.8-10.6) k/uL RBC 3.66 L (4.30-5.90) m/uL Hgb 11.2 L (13.0-17.5) gm/dL Hct 33.7 L (39.0-53.0) % RDW 16.0 H (11.5-15.5) % Lymphocytes # 0.4 L (1.0-4.8) k/uL POC Glucose (mg/dL) 110 H (75-99) mg/dL Assessment and Plan (1) Cancer of upper lobe of right lung Status: Acute (2) Mass of upper lobe of right lung Status: Acute (3) Diabetes mellitus type 2 in nonobese Status: Acute (4) Hypertension Status: Acute (5) Hyperlipidemia Status: Acute (6) Tobacco dependence in remission Status: Acute (7) COPD (chronic obstructive pulmonary disease) Status: Acute (8) PAD (peripheral artery disease) Status: Acute Plan: 1. Continue chest tube to water seal. Await pathology results. 2. Encourage incentive spirometry use. 3. Monitor urine output. Straight cath if retention. May need to consult urology if continued retention. 4. Continue current medication regimen. Medical comorbidities to be managed by internal medicine service. 5. Epidural discontinued. Pain medication with [place] with morphine for breakthrough pain. 6. Increase activity, ambulate in hallway. 7. GI/DVT prophylaxis. 8. More recommendations as patient progresses. Time with Patient: Greater than 30
--- NOTE | 2017-02-23 09:08 | PN ---
DATE OF SERVICE: 02/22/2017 I am covering for Dr. Enrique Estrada. This 66-year-old gentleman who was admitted after right thoracotomy is being closely monitored. Patient has a chest tube. He has improved significantly. No fever. Occasional cough reported. On exam, alert and oriented x3. Pulse is 75, blood pressure 135/66, respirations 24, temperature 98.6, pulse ox 94% on room air. HEENT: Conjunctivae normal. NECK: No JVD. No carotid bruits. CARDIOVASCULAR: S1 and S2 muffled. LUNGS: Breath sounds diminished at the bases. Few scattered rhonchi and crackles. ABDOMEN: Soft, nontender. No masses palpable. NERVOUS SYSTEM: No focal deficits. LABS: WBC 4.6, hemoglobin 10.6, platelets 132. Glucose noted. ASSESSMENT: 1. Status post right thoracotomy, right upper lobectomy and mediastinal lymph node dissection for non-small cell lung cancer, right upper lobe, stage 3A, status post initial chemotherapy and radiation. 2. Diabetes mellitus type 2. 3. History of gastroesophageal reflux disease. 4. Hyperlipidemia. 5. History of degenerative joint disease. 6. History of macular degeneration. 7. History of peripheral vascular disease. 8. History of previous vascular bypass. 9. History of ORIF of the right femur 10. History of anxiety not otherwise specified. 11. Remote history of nicotine dependence. 12. FULL CODE. RECOMMENDATIONS: Recommend to continue incentive spirometry. DVT prophylaxis. Continue the rest of the medications. Dr. Enrique Estrada will follow. Further workup per orthopedic surgery.
[2017-02-23] MEDS: GLUCOSAMINE SULFATE PO SCH (09:12)
[2017-02-23] MEDS: VIT A,C & E-LUTEIN-MINERALS 1 EACH TAB PO SCH ×2 (09:12→19:40)
[2017-02-23] MEDS: MULTIVITAMINS, THERA 1 EACH TAB PO SCH (09:13)
[2017-02-23] MEDS: CALCIUM CARB-VIT D 500MG-200UN 1 EACH TAB PO SCH (09:13)
[2017-02-23] MEDS: ASCORBIC ACID 500 MG TAB PO SCH (09:13)
[2017-02-23] MEDS: MAGNESIUM OXIDE 400 MG TAB PO SCH (09:14)
[2017-02-23] MEDS: HEPARIN SODIUM,PORCINE 5,000 UNIT/ML 1 ML VIAL SQ SCH ×3 (09:14→22:59)
[2017-02-23] MEDS: HYDROcodone/APAP 5-325MG 1 EACH TAB PO PRN ×3 (10:25→19:39)
[2017-02-23] MEDS ORDERED: FUROSEMIDE 10 MG/ML 2 ML VIAL IV ONE (11:00)
[2017-02-23 11:47] LABS: Glucose,Whole Blood 88 mg/dL (75-99)
--- NOTE | 2017-02-23 12:11 | XR ---
EXAMINATION TYPE: XR chest 2V DATE OF EXAM: 02/23/2017 COMPARISON: 02/23/2017 TECHNIQUE: PA and lateral views submitted. HISTORY: Chest tube removal FINDINGS: Chest tube is been removed and there is mild prominence the right hilum. There is a 5% right apical p neumothorax with persistent subcutaneous emphysema. No mediastinal deviation. Left lung remains clear . Heart size stable. IMPRESSION: 1. Chest tube removal with suspected 5% right apical pneumothorax and extensive subcutaneous emphysem a.
--- NOTE | 2017-02-23 12:31 | P.PN ---
Subjective Principal diagnosis: Non-small cell lung cancer, status post right thoracotomy and right upper lobectomy with mediastinal node dissection. Postoperative day #3 66-year-old male patient was initially referred to me on 11/21/2016 for an abnormal CAT scan of the chest. The patient had a lung mass that was suspicious for malignancy. The patient had a 3 x 1.7 cm right upper lobe mass in addition to right paratracheal lymphadenopathy measuring 1.4 x 1.0 cm in size. The patient had a bronchoscopy and transbronchial needle aspirate of the right paratracheal lymph node showed non-small cell lung cancer/adenocarcinoma. Based on this, the patient was referred to medical oncology and general surgery. The patient was diagnosed having stage IIIa non-small cell lung cancer. The patient was given a combination of chemoradiation therapy and subsequent PET scan showed marked response and there was interval improvement without any evidence of lymphadenopathy within the mediastinum. The right hilum and subcarinal hypermetabolic uptake was no longer evident. The right upper lobe soft tissue mass was also measuring down to 2 cm in size and there was no distant metastases. Based on this, the patient was taken to the operating room for a right thoracotomy and right upper lobectomy and mediastinal lymph node dissection. Today the patient is postop day #1. The patient is doing extremely well. Chest tube is in place. There is no evidence of air leak. Chest x-ray from today shows adequate positioning of the right- sided chest tube and that is no evidence of pneumothorax. Pain is under excellent control with epidural bupivacaine and Dilaudid. The patient is hemodynamic is stable. He has no specific complaints. He had are 4, 7, 8 and 19 and 11 lymph nodes dissected and the pathology is still pending. On 02/22/2017, the patient is postop day #2. The patient doing extremely well. Chest tube has drained approximately 4 50 mL overnight. No evidence of air leak. The patient has some limited amount of subcutaneous emphysema over the right anterior chest. The chest x-ray showed no evidence of any pneumothorax. No respiratory distress. Using incentive spirometer. The epidural Dilaudid is being weaned out. The patient was a bit sleepy yesterday and this was attributed to the epidural Dilaudid. He improved after the dose was weaned down. Otherwise, no other significant events overnight. Is tolerating his diet. No nausea or vomiting. He has DVT prophylaxis. On 02/23/2017, patient is postoperative day #3, doing quite well, right-sided chest tube was removed earlier today. Chest x-ray done earlier was reassuring. No evidence of pneumothorax, there was evidence of subcutaneous emphysema. Patient has some pain but overall is doing well no shortness of breath, no cough , no wheezing. Objective - Vital Signs Vital signs: Vital Signs Temp 97 F L 02/23/17 11:49 Pulse 76 02/23/17 11:49 Resp 18 02/23/17 11:49 BP 128/73 02/23/17 11:49 Pulse Ox 98 02/23/17 11:49 Intake & Output 02/22/17 02/23/17 02/23/17 18:59 06:59 18:59 Intake Total 2145.2 316.8 360 Output Total 1935 2340 800 Balance 210.2 -2023.2 -440 Weight 84.7 kg 84.1 kg Intake: IV 40 160 0.9 @ 10 ml/hr 160 Dextrose 5%-0.45% NaCl 1, 40 000 ml @ 50 mls/hr IV . Q20H [facility] Rx#:[id number] Intake, IV Titration 145.2 156.8 Amount Bupivacaine (Pf) 0.5% 31. 145.2 156.8 3 ml Hydromorphone (Pf) 5 mg In Sodium Chloride 0. 9% 218 ml @ Per Protocol EPIDURAL .Q0M PRN Rx#: [id number] Oral 1960 360 Output: Chest Tube Drainage 240 140 Chest Tube Right Lateral 240 140 Chest Urine 1695 2200 800 Other: Voiding Method Urinal Indwelling Catheter # Voids 0 ABP, PAP, CO, CI - Last Documented Arterial Blood Pressure 134/54 - Exam Physical Exam: Revealed a 66-year-old white male in no distress HEENT:[Neck is supple.] [No neck masses.] [No thyromegaly.] [No JVD.] Chest: Minimal crackles at the right base, left side is relatively clear.] Cardiac Exam: [Normal S1 and S2, no S3 gallop, no murmur.] Abdomen: [Soft, nontender, no megaly, no rebound, no guarding, normal bowel sounds.] Extremities: [No clubbing, no edema, no cyanosis.] Neurological Exam: [No focal neurologic deficit.] - Labs CBC & Chem 7: 06/12/17 06:15 02/23/17 06:15 Labs: Abnormal Lab Results - Last 24 Hours (Table) 02/22/17 02/22/17 02/22/17 Range/Units 12:36 16:30 21:39 WBC (3.8-10.6) k/uL RBC (4.30-5.90) m/uL Hgb (13.0-17.5) gm/dL Hct (39.0-53.0) % RDW (11.5-15.5) % Lymphocytes # (1.0-4.8) k/uL POC Glucose (mg/dL) 113 H 115 H 110 H (75-99) mg/dL 02/23/17 Range/Units 06:15 WBC 3.6 L (3.8-10.6) k/uL RBC 3.66 L (4.30-5.90) m/uL Hgb 11.2 L (13.0-17.5) gm/dL Hct 33.7 L (39.0-53.0) % RDW 16.0 H (11.5-15.5) % Lymphocytes # 0.4 L (1.0-4.8) k/uL POC Glucose (mg/dL) (75-99) mg/dL Assessment and Plan Plan: 1 stage IIIa non-small cell lung cancer/adenocarcinoma status post chemo and radiation therapy Berny status post right upper lobe resection through a thoracotomy and mediastinal lymph node dissection and the patient is postop day #3 2 diabetes mellitus 3 peripheral vascular disease 4 hyperlipidemia 5 right chest to subcutaneous emphysema Recommendation: Continue incentive spirometry, ambulation, bronchodilators, possible discharge planning in the next 24 hours. Patient will have follow-up with Dr. Giraldo postdischarge. And he would go back and follow up with his oncologist. Time with Patient: Less than 30
[2017-02-23 16:44] LABS: Glucose,Whole Blood 146 mg/dL (75-99)
[2017-02-23] MEDS: ATORVASTATIN 10 MG TAB PO SCH (19:40)
[2017-02-23 20:53] LABS: Glucose,Whole Blood 122 mg/dL (75-99)
[2017-02-24] MEDS: HYDROcodone/APAP 5-325MG 1 EACH TAB PO PRN (04:30)
[2017-02-24 05:53] LABS: Glucose,Whole Blood 100 mg/dL (75-99)
[2017-02-24 06:14] LABS: Basophils % (A) 0 %; CH 30.5; CHCM 33.6; Eosinophils # (A) 0.1 k/uL (0-0.7); Eosinophils % (A) 2 %; HCT 32.6 % (39.0-53.0); HDW 3.05; HGB 10.8 gm/dL (13.0-17.5); Luc # (Auto) 0.12; Luc % (Auto) 3; Lymphocytes # (A) 0.3 k/uL (1.0-4.8); Lymphocytes % (A) 9 %; MCH 30.2 pg (25.0-35.0); MCHC 33.2 g/dL (31.0-37.0); Mean Platelet Volume 6.7; Monocytes # (A) 0.4 k/uL (0-1.0); Monocytes % (A) 10 %; Neutrophils # (A) 2.6 k/uL (1.3-7.7); Neutrophils % (A) 75 %; RBC 3.59 m/uL (4.30-5.90); RDW 15.7 % (11.5-15.5); WBC 3.5 k/uL (3.8-10.6); WBC (Perox) 3.71
[2017-02-24 06:21] LABS: Anion Gap 5 mmol/L; Blood Urea Nitrogen 21 mg/dL (9-20); Calcium 8.4 mg/dL (8.4-10.2); Carbon Dioxide 30 mmol/L (22-30); Chloride 105 mmol/L (98-107); Glucose 94 mg/dL (74-99); Non-African American GFR(MDRD) >60 (>60 ml/min/1.73 sqM); Potassium 4.7 mmol/L (3.5-5.1); Sodium 140 mmol/L (137-145)
[2017-02-24] MEDS: INSULIN LISPRO (humaLOG) 300 UNIT/3 ML VIAL SQ SCH ×2 (06:23→12:37)
[2017-02-24] MEDS: PANTOPRAZOLE 40 MG TABLET PO SCH (06:41)
[2017-02-24] MEDS: KETOROLAC 30 MG/ML 1 ML VIAL IVP SCH ×2 (06:41→12:37)
[2017-02-24] MEDS: GLUCOSAMINE SULFATE PO SCH (06:51)
[2017-02-24] MEDS: VIT A,C & E-LUTEIN-MINERALS 1 EACH TAB PO SCH (06:51)
--- NOTE | 2017-02-24 06:57 | XR ---
EXAMINATION TYPE: XR chest 2V DATE OF EXAM: 02/24/2017 COMPARISON: 02/23/2017 INDICATION: Pneumothorax, chest tube removal TECHNIQUE: Frontal and lateral views of the chest are obtained. FINDINGS: The heart size is normal. The pulmonary vasculature is normal. The lungs are clear. There is residual subcutaneous emphysema along the right. There is some limitati on at the right apex. There is minimal medial right apical pneumothorax less than 20%. IMPRESSION: 1. Minimal residual pneumothorax at the medial right apex stable from prior exam.
[2017-02-24] MEDS: IPRATROPIUM-ALBUTEROL 3 ML NEB INHALATION SCH (08:04)
--- NOTE | 2017-02-24 08:30 | P.PN ---
Subjective Principal diagnosis: Lung cancer right upper lobe stage IIIa, status post induction chemoradiation POD #4 right thoracotomy, right upper lobectomy, mediastinal lymph node dissection Patient is currently standing at the bedside in no acute distress. States his pain is better controlled. Right pleural chest tube discontinued yesterday. Less than 20% pneumothorax demonstrated on post-removal x-ray yesterday, unchanged this morning. Objective - Vital Signs Vital signs: Vital Signs Temp 97 F L 02/24/17 04:00 Pulse 87 02/24/17 08:14 Resp 18 02/24/17 04:00 BP 155/75 02/24/17 04:00 Pulse Ox 96 02/24/17 04:00 Intake & Output 02/23/17 02/24/17 02/24/17 18:59 06:59 18:59 Intake Total 960 300 Output Total 2200 500 Balance -1240 -200 Weight 80.331 kg Intake: Oral 960 300 Output: Urine 2200 500 ABP, PAP, CO, CI - Last Documented Arterial Blood Pressure 134/54 - Constitutional General appearance: Present: cooperative, no acute distress - Respiratory Details: Lungs sounds diminished bilaterally. Respirations even, nonlabored. Currently on room air with oxygen saturation 96%. Able to achieve 2750 mL on his incentive spirometry. - Cardiovascular Details: S1, S2 present. Regular rate and rhythm, normal sinus rhythm on telemetry. - Gastrointestinal Gastrointestinal Comment(s): Abdomen soft, nontender, nondistended. Active bowel sounds 4 quadrants. Tolerating diet. - Genitourinary Genitourinary Comment(s): Continues to void clear, yellow urine. - Integumentary Integumentary Comment(s): Right lateral chest wall incisions well approximated and covered with dry intact dressings. - Musculoskeletal Musculoskeletal: Present: gait normal, strength equal bilaterally - Psychiatric Psychiatric: Present: A&O x's 3, appropriate affect, intact judgment & insight - Allied health notes Allied health notes reviewed: nursing - Labs CBC & Chem 7: 02/24/17 05:40 02/24/17 05:40 Labs: Abnormal Lab Results - Last 24 Hours (Table) 02/23/17 02/23/17 02/24/17 Range/Units 16:39 20:52 05:40 WBC 3.5 L (3.8-10.6) k/uL RBC 3.59 L (4.30-5.90) m/uL Hgb 10.8 L (13.0-17.5) gm/dL Hct 32.6 L (39.0-53.0) % RDW 15.7 H (11.5-15.5) % Lymphocytes # 0.3 L (1.0-4.8) k/uL BUN (9-20) mg/dL POC Glucose (mg/dL) 146 H 122 H (75-99) mg/dL 02/24/17 02/24/17 Range/Units 05:40 05:52 WBC (3.8-10.6) k/uL RBC (4.30-5.90) m/uL Hgb (13.0-17.5) gm/dL Hct (39.0-53.0) % RDW (11.5-15.5) % Lymphocytes # (1.0-4.8) k/uL BUN 21 H (9-20) mg/dL POC Glucose (mg/dL) 100 H (75-99) mg/dL - Imaging and Cardiology Chest x-ray: image reviewed Assessment and Plan (1) Cancer of upper lobe of right lung Status: Acute (2) Mass of upper lobe of right lung Status: Acute (3) Diabetes mellitus type 2 in nonobese Status: Acute (4) Hypertension Status: Acute (5) Hyperlipidemia Status: Acute (6) Tobacco dependence in remission Status: Acute (7) COPD (chronic obstructive pulmonary disease) Status: Acute (8) PAD (peripheral artery disease) Status: Acute Plan: 1. Encourage continued incentive spirometry use. 2. Continue current medication regimen. Medical comorbidities to be managed by internal medicine service. 3. Pain management with ordered medications. 4. Increase activity, ambulate in hallway. 5. GI/DVT prophylaxis. 6. Will discharge to home today. Activity restrictions discussed with patient. Will make follow-up appointments for thoracic surgery, pulmonology, oncology. Pathology results still pending Time with Patient: Greater than 30
[2017-02-24 10:22] VITALS: TEMP 97.9
[2017-02-24] MEDS: HEPARIN SODIUM,PORCINE 5,000 UNIT/ML 1 ML VIAL SQ SCH (10:45)
[2017-02-24 11:27] VITALS: BP 122/73; PULSE 85; RESP 16
[2017-02-24 11:29] LABS: Glucose,Whole Blood 99 mg/dL (75-99)
--- NOTE | 2017-02-24 12:14 | P.DS ---
Providers Date of admission: 02/20/17 09:50 Attending physician: Sean Marie Consults: 02/20/17 12:38 Consult Physician Routine Consulting Provider: Jigna Giraldo Consult Reason/Comments: Pulmonary management Do you want consulting provider notified?: Yes 02/20/17 12:47 Consult Physician Routine Consulting Provider: Enrique Estrada Reason/Comments: Medical management Do you want consulting provider notified?: Yes Primary care physician: Enrique Estrada [facility] Course: FINAL DIAGNOSIS: 1.[ Lung cancer right upper lobe stage IIIa status post induction chemoradiation] 2.[ Diabetes mellitus type 2] 3.[ Hyperlipidemia] 4.[ Gastroesophageal reflux disease] 5.[ Peripheral vascular disease, with history of previous redo femoral-femoral bypass] 6.[ Osteoarthritis] 7.[ Remote history of nicotine dependence, quit smoking in 2006 ] PRINCIPAL PROCEDURE: 1.[ Right thoracotomy, right upper lobectomy, mediastinal lymph node dissection.] HISTORY OF PRESENT ILLNESS: [This is a 66-year-old gentleman who is followed on an outpatient basis by Dr. Vimal Estrada. recently, the patient had complaints of progressive cough with congestion and sputum production. His cough was persistent and subsequently underwent a computed tomography scan of his chest. The CAT scan of his chest demonstrated an oval shaped mass in the posterior aspect of his right upper lobe measuring 3.1 x 1.8 cm, And also demonstrated a right paratracheal lymph node measuring 1.4 x 1.0 cm. He was subsequently referred to Dr. Jigna Giraldo from pulmonary medicine for further evaluation and workup. Due to the abnormal computed tomography scan findings the patient underwent a repeat computed tomography scan of his chest without contrast using the Veran protocol 11/27/16, which redemonstrated a 3.3 cm mass posterior right upper lobe and a mildly enlarged 1.2 cm right tracheobronchial angle lymph node. The patient also underwent a bronchoscopy with navigational assistance for a transbronchial biopsy of the right upper lobe lesion. His pathology from the biopsy showed his lymph node from his right paratracheal tapia needle aspirate to be positive for non-small cell lung cancer /adenocarcinoma of the lung. The patient was then referred to oncology and underwent combination chemoradiation and his follow-up PET scan demonstrated good response to the treatment. He was subsequently referred to Dr. Sean Marie from cardiothoracic surgery who recommended the patient undergo a right thoracotomy with right upper lobectomy and mediastinal lymph node dissection. ] HOSPITAL COURSE:[The patient was admitted to the hospital and after obtaining consent was taken to the operating room where Dr. Sean Marie performed a right thoracotomy, right upper lobectomy, and mediastinal lymph node dissection. The patient was then recovered, monitored he'd hemodynamically, and was subsequently transferred to the intensive care unit for further hemodynamic monitoring. The patient recovered without any postoperative complications. His pathology results are still pending and will be reviewed with the patient on an outpatient basis. ] COMPLICATIONS: [ there were no postoperative, complications. ] CONSULTATIONS: 1.[ Dr. Jigna Giraldo for pulmonary management ] 2.[Dr. Dr. Vimal Estrada for medical management ] DISCHARGE INSTRUCTIONS: 1. No driving for 4 weeks, or until physician gives their ok. 2. The patient should sleep in their own bed, no medical bed needed. 3. Continue with incentive spirometry and splinting/heart hugger until otherwise directed by the physician. 4. Continue pain control per as needed orders. 5. Must shower daily using liquid antibacterial soap and a separate white washcloth for each individual incision. 6. Please notify surgeon/nurse practitioner for temperature greater than 101F or purulent drainage from incisions 7. [facility] will be following patient for follow-up home care. Plan - Discharge Summary New Discharge Prescriptions: New Glucosamine Sulfate 1 cap PO DAILY Vit A,C & W-Jhtynx-Mqvkmeoj [Ivite] 1 each PO BID tab Continue Simvastatin [Zocor] 20 mg PO HS Ranitidine HCl [Zantac] 150 mg PO DAILY PRN PRN Reason: Heartburn Ibuprofen [Motrin] 200 - 400 mg PO Q6HR PRN PRN Reason: Pain Multivitamin/Iron/Folic Acid [Centrum Complete Multivit Tab] 1 tab PO DAILY Calcium Carbonate/Vitamin D3 [Calcium 600-Vit D3 400 Tablet] 1 tab PO DAILY Glucosamine Sulfate 750 mg PO DAILY [place]-3 Fatty Acids/Fish Oil [Fish Oil 1,000 mg Softgel] 1 cap PO DAILY Ascorbic Acid [Vitamin C] 500 mg PO DAILY Loratadine [Claritin] 10 mg PO DAILY PRN PRN Reason: Allergic Reaction Magnesium Oxide [Mag-Ox] 250 mg PO DAILY Vit C/E/Zn/Coppr/Lutein/Zeaxan [Preservision Areds 2 Softgel] 1 cap PO BID Acetaminophen [Tylenol] 500 mg PO BID PRN PRN Reason: Pain Changed Hydrocodone/Acetaminophen [[place] 5-325] 1 - 2 tab PO Q6HR PRN #120 PRN Reason: Pain Discharge Medication List Calcium Carbonate/Vitamin D3 [Calcium 600-Vit D3 400 Tablet] 1 tab PO DAILY [History] Ibuprofen [Motrin] 200 - 400 mg PO Q6HR PRN 12/08/14 [History] Multivitamin/Iron/Folic Acid [Centrum Complete Multivit Tab] 1 tab PO DAILY [History] Ranitidine HCl [Zantac] 150 mg PO DAILY PRN 12/08/14 [History] Simvastatin [Zocor] 20 mg PO HS 12/08/14 [History] Ascorbic Acid [Vitamin C] 500 mg PO DAILY 12/11/14 [History] Glucosamine Sulfate 750 mg PO DAILY 12/11/14 [History] [place]-3 Fatty Acids/Fish Oil [Fish Oil 1,000 mg Softgel] 1 cap PO DAILY [History] Loratadine [Claritin] 10 mg PO DAILY PRN 12/14/15 [History] Acetaminophen [Tylenol] 500 mg PO BID PRN 11/25/16 [History] Magnesium Oxide [Mag-Ox] 250 mg PO DAILY 11/25/16 [History] Vit C/E/Zn/Coppr/Lutein/Zeaxan [Preservision Areds 2 Softgel] 1 cap PO BID 11/25 [History] Glucosamine Sulfate 1 cap PO DAILY 02/24/17 [Rx] Hydrocodone/Acetaminophen [[place] 5-325] 1 - 2 tab PO Q6HR PRN #120 02/24/17 [Rx ] Vit A,C & O-Jzpkpu-Qxgknaud [Ivite] 1 each PO BID tab 02/24/17 [Rx] Follow up Appointment(s)/Referral(s): Enrique Estrada DO [Primary Care Provider] - 03/05/17 11:30 am Sean Marie MD [STAFF PHYSICIAN] - 03/09/17 12:30 pm Jarvis Su MD [STAFF PHYSICIAN] - 03/05/17 8:30 am Jigna Giraldo MD [STAFF PHYSICIAN] - 03/20/17 10:30 am [facility], [NON-STAFF] - As Needed Discharge Disposition: HOME WITH HOME HEALTH SERVICES
[2017-02-24] MEDS: MULTIVITAMINS, THERA 1 EACH TAB PO SCH (12:36)
[2017-02-24] MEDS: MAGNESIUM OXIDE 400 MG TAB PO SCH (12:36)
[2017-02-24] MEDS: ASCORBIC ACID 500 MG TAB PO SCH (12:36)
[2017-02-24] MEDS: CALCIUM CARB-VIT D 500MG-200UN 1 EACH TAB PO SCH (12:36)
--- NOTE | 2017-02-24 13:51 | P.PN ---
Subjective Principal diagnosis: Non-small cell lung cancer, status post right thoracotomy and right upper lobectomy with mediastinal node dissection. 66-year-old male patient was initially referred to me on 11/21/2016 for an abnormal CAT scan of the chest. The patient had a lung mass that was suspicious for malignancy. The patient had a 3 x 1.7 cm right upper lobe mass in addition to right paratracheal lymphadenopathy measuring 1.4 x 1.0 cm in size. The patient had a bronchoscopy and transbronchial needle aspirate of the right paratracheal lymph node showed non-small cell lung cancer/adenocarcinoma. Based on this, the patient was referred to medical oncology and general surgery. The patient was diagnosed having stage IIIa non-small cell lung cancer. The patient was given a combination of chemoradiation therapy and subsequent PET scan showed marked response and there was interval improvement without any evidence of lymphadenopathy within the mediastinum. The right hilum and subcarinal hypermetabolic uptake was no longer evident. The right upper lobe soft tissue mass was also measuring down to 2 cm in size and there was no distant metastases. Based on this, the patient was taken to the operating room for a right thoracotomy and right upper lobectomy and mediastinal lymph node dissection. Today the patient is postop day #1. The patient is doing extremely well. Chest tube is in place. There is no evidence of air leak. Chest x-ray from today shows adequate positioning of the right- sided chest tube and that is no evidence of pneumothorax. Pain is under excellent control with epidural bupivacaine and Dilaudid. The patient is hemodynamic is stable. He has no specific complaints. He had are 4, 7, 8 and 19 and 11 lymph nodes dissected and the pathology is still pending. On 02/22/2017, the patient is postop day #2. The patient doing extremely well. Chest tube has drained approximately 4 50 mL overnight. No evidence of air leak. The patient has some limited amount of subcutaneous emphysema over the right anterior chest. The chest x-ray showed no evidence of any pneumothorax. No respiratory distress. Using incentive spirometer. The epidural Dilaudid is being weaned out. The patient was a bit sleepy yesterday and this was attributed to the epidural Dilaudid. He improved after the dose was weaned down. Otherwise, no other significant events overnight. Is tolerating his diet. No nausea or vomiting. He has DVT prophylaxis. On 02/23/2017, patient is postoperative day #3, doing quite well, right-sided chest tube was removed earlier today. Chest x-ray done earlier was reassuring. No evidence of pneumothorax, there was evidence of subcutaneous emphysema. Patient has some pain but overall is doing well no shortness of breath, no cough , no wheezing. The patient is seen again today 02/24/2017 in follow-up. This is postoperative day #4. He is awake and alert in no acute distress. His chest x-ray was reviewed. He denies any worsening shortness of breath, cough or congestion. He is maintaining good O2 saturations in the upper 90s on room air. He is afebrile. No leukocytosis. Hemoglobin stable at 10.8. He is anxious to go home. Objective - Vital Signs Vital signs: Vital Signs Temp 97.9 F 02/24/17 08:00 Pulse 85 02/24/17 12:00 Resp 16 02/24/17 12:00 BP 122/73 02/24/17 11:25 Pulse Ox 97 02/24/17 11:25 Intake & Output 02/23/17 02/24/17 02/24/17 18:59 06:59 18:59 Intake Total 960 300 960 Output Total 2200 500 Balance -1240 -200 960 Weight 80.331 kg Intake: Oral 960 300 960 Output: Urine 2200 500 Other: Voiding Method Indwelling Catheter ABP, PAP, CO, CI - Last Documented Arterial Blood Pressure 134/54 - Exam GENERAL EXAM: Alert, active, comfortable in no apparent distress. HEAD: Normocephalic. EYES: Normal reaction of pupils, equal size. NOSE: Clear with pink turbinates. THROAT: No erythema or exudates. NECK: No masses, no JVD. CHEST: No chest wall deformity. Dressing is dry and intact. LUNGS: Equal air entry with no crackles, wheeze, rhonchi or dullness. CVS: S1 and S2 normal with no audible mumurs, regular rhythm. ABDOMEN: No hepatosplenomegaly, normal bowel sounds, no guarding or rigidity. SPINE: No scoliosis or deformity SKIN: No rashes CENTRAL NERVOUS SYSTEM: No focal deficits, tone is normal in all 4 extremities. Extremities: There is no peripheral edema. No clubbing, no cyanosis. Peripheral pulses are intact. - Labs CBC & Chem 7: 02/24/17 05:40 02/24/17 05:40 Labs: Abnormal Lab Results - Last 24 Hours (Table) 02/23/17 02/23/17 02/24/17 Range/Units 16:39 20:52 05:40 WBC 3.5 L (3.8-10.6) k/uL RBC 3.59 L (4.30-5.90) m/uL Hgb 10.8 L (13.0-17.5) gm/dL Hct 32.6 L (39.0-53.0) % RDW 15.7 H (11.5-15.5) % Lymphocytes # 0.3 L (1.0-4.8) k/uL BUN (9-20) mg/dL POC Glucose (mg/dL) 146 H 122 H (75-99) mg/dL 02/24/17 02/24/17 Range/Units 05:40 05:52 WBC (3.8-10.6) k/uL RBC (4.30-5.90) m/uL Hgb (13.0-17.5) gm/dL Hct (39.0-53.0) % RDW (11.5-15.5) % Lymphocytes # (1.0-4.8) k/uL BUN 21 H (9-20) mg/dL POC Glucose (mg/dL) 100 H (75-99) mg/dL Assessment and Plan Plan: Impression: 1 stage IIIa non-small cell lung cancer/adenocarcinoma status post chemo and radiation therapy Berny status post right upper lobe resection through a thoracotomy and mediastinal lymph node dissection and the patient is postop day #3 2 diabetes mellitus 3 peripheral vascular disease 4 hyperlipidemia 5 right chest to subcutaneous emphysema Plan: The patient was seen and evaluated by Dr. Horan. His chest x-ray and labs were reviewed. He is cleared for discharge from the pulmonary standpoint. He' ll follow up with Dr. Giraldo in our office in 1-2 weeks' time. We'll repeat a chest x-ray done. He is however encouraged to call sooner with any recurrence of symptoms or other questions or concerns.
== END 2017-02-24 13:26 | disposition home health service (06) | DRG 164 ==
LOC: 2ORMAIN 09:50 → 6ICU 17:50 → 6SEL 02-22 16:26
PROVIDERS: ADMIT Thoracic Surgery (Cardiothoracic Vascular Surgery); ATTEND Thoracic Surgery (Cardiothoracic Vascular Surgery)
PROC: 07B70ZX Excision of Thorax Lymphatic, Open Approach, Diagnostic (ICD-10-PCS; 2017-02-20)
PROC: 0BTC0ZZ Resection of Right Upper Lung Lobe, Open Approach (ICD-10-PCS; principal; 2017-02-20 12:15)
DX: C34.11 Malignant neoplasm of upper lobe, right bronchus or lung (principal); C77.1 Secondary and unspecified malignant neoplasm of intrathoracic lymph nodes; E11.51 Type 2 diabetes mellitus with diabetic peripheral angiopathy without gangrene; J44.9 Chronic obstructive pulmonary disease, unspecified; T81.82XA Emphysema (subcutaneous) resulting from a procedure, initial encounter; R33.9 Retention of urine, unspecified; E78.5 Hyperlipidemia, unspecified; K21.9 Gastro-esophageal reflux disease without esophagitis; I10 Essential (primary) hypertension; H35.30 Unspecified macular degeneration; M19.91 Primary osteoarthritis, unspecified site; G47.00 Insomnia, unspecified; F41.9 Anxiety disorder, unspecified; Z92.3 Personal history of irradiation; Z87.891 Personal history of nicotine dependence; Z92.21 Personal history of antineoplastic chemotherapy; Z88.2 Allergy status to sulfonamides; Z88.9 Allergy status to unspecified drugs, medicaments and biological substances; Z91.041 Radiographic dye allergy status; Z79.899 Other long term (current) drug therapy
CPT/HCPCS: 71010; 71020; 80048; 80053; 83036; 83735; 84100; 85025; 86850; 86900; 86901; 88305; 88309; 88313; 88341; 88342; 94640; 94760

== ENCOUNTER → 2017-07-22 | Outpatient (CLI) | payer MEDICARE ==
[2017-07-22 08:23] LABS: Blood Urea Nitrogen 15 mg/dL (9-20); Non-African American GFR(MDRD) >60 (>60 ml/min/1.73 sqM)
--- NOTE | 2017-07-22 09:23 | CT ---
EXAMINATION TYPE: CT chest w con DATE OF EXAM: 07/22/2017 COMPARISON: 11/17/2016 HISTORY: Lung cancer CT DLP: 278.0 mGycm Automated exposure control for dose reduction was used. CONTRAST: CT scan of the chest is performed with IV Contrast, patient injected with 100 ml mL of Omnipaque 300. FINDINGS: LUNGS: Partial pneumonectomy change right lung. Previously noted mass right upper lobe is no longer e vident. There is small loculated pleural effusion. Right perihilar density is felt to reflect post ra diation therapy change with prominent interstitium and air bronchograms. No recurrent masses are seen . Mild subpleural fibrosis bilaterally. The left lung is otherwise clear. MEDIASTINUM: There are no greater than 1 cm hilar or mediastinal lymph nodes. No pericardial effusi on is seen. Thoracic aorta is of normal caliber. The heart is not enlarged. UPPER ABDOMEN: No significant abnormality appreciated. OTHER: No additional significant abnormality is seen. IMPRESSION: 1. Postsurgical and postradiation therapy changes right lung. No evidence for recurrent or residual m ass. Small right-sided pleural effusion.
== END ==
LOC: RADCTMAIN 07:57
PROVIDERS: ATTEND Internal Medicine Hematology & Oncology
DX: C34.11 Malignant neoplasm of upper lobe, right bronchus or lung (principal); J90 Pleural effusion, not elsewhere classified; Z98.890 Other specified postprocedural states
CPT/HCPCS: 82565; 84520; 71260; 36415; Q9967

== ENCOUNTER → 2017-11-19 | Outpatient (CLI) | payer MEDICARE ==
[2017-11-19 08:57] LABS: Blood Urea Nitrogen 20 mg/dL (9-20)
--- NOTE | 2017-11-19 10:23 | CT ---
EXAMINATION TYPE: CT chest w con DATE OF EXAM: 11/19/2017 COMPARISON: CT chest 07/22/2017, PET CT 02/07/2017 HISTORY: f/u lung ca RUL CT DLP: 634.0 mGycm, Automated exposure control for dose reduction was used. CONTRAST: Performed injected with 100 mL of Omnipaque 300. TECHNIQUE: Axial images were obtained at 5 mm thick sections. Reconstructed images are reviewed on [employer] computer in the coronal plane. FINDINGS: Portion of the thyroid visualized is normal. There is a small loculated right pleural effusion at the right apex.. Consolidation is in the right a pex. This could be postradiation changes and pulmonary fibrosis. Recurrent cancer is not excluded. Th ere is some increasing soft tissue density in the suprahilar region. This measures approximately 3.4 x 1.6 cm. Series 3 image 20. This is away from the primary posterior lateral right apical tumor that was surgically resected. Minimal right pleural effusion is at the base. No enlarged mediastinal or hilar adenopathy is evident. There are couple of small lymph nodes withi n the mediastinum. The ascending aorta diameter at the level of the main pulmonary artery is 3.0 cm. The main pulmonary artery diameter at the bifurcation is 2.[address] sections are obtained through the upper abdomen. Abdomen is essentially unremarkable. IMPRESSIONS: 1. Increasing soft tissue density in the suprahilar region adjacent to the mediastinum at the right a pex. Postradiation and postsurgical changes are favored. Recurrent or metastatic disease is not exclu ded. Consider additional workup with PET CT.
== END | disposition home or self-care (01) ==
LOC: RADCTMAIN 08:05
PROVIDERS: ATTEND Internal Medicine Hematology & Oncology
DX: C34.11 Malignant neoplasm of upper lobe, right bronchus or lung (principal); J98.4 Other disorders of lung; Z88.6 Allergy status to analgesic agent
CPT/HCPCS: 82565; 84520; 71260; 36415; Q9967

== ENCOUNTER → 2017-11-28 | Outpatient (CLI) | payer MEDICARE ==
--- NOTE | 2017-12-02 07:43 | PE ---
EXAMINATION TYPE: PET CT fusion skull to thigh DATE OF EXAM: 11/28/2017 COMPARISON: Prior PET/CT February 07, 2017 and older studies. Prior chest CT November 19, 2017 and older osieli es. HISTORY: Right-sided lung cancer progress study. Completed radiation treatment in December 2016. Compl eted chemotherapy May 2017. Had surgery February 28, 2017. TECHNIQUE: Following the intravenous administration of 14.352 mCi of F-18 FDG, whole body images are performed from the skull base to the midthigh. Images are reviewed on the computer in the coronal, axial, and sagittal planes. Reconstructed rotating images are created on independent workstation and reviewed on the computer. A noncontrast CT is performed in conjunction with the PET scan. SCAN: Subsequent Scan FINDINGS: SKULL BASE AND NECK: No new areas of suspicious hypermetabolic uptake are identified. CHEST, MEDIASTINUM, AND HILAR REGION: There is new small right pleural effusion without hypermetaboli c uptake. There is interval surgery with surgical clips and sutures right hilar region. There is mass like consolidation medially in the right upper to midlung without abnormal hypermetabolic uptake favo ring combination of surgical and radiation treatment change. Mild hypermetabolic uptake at level of s utures is seen. Max SUV is 2.7. Prior visualized prominent paratracheal lymph node is not clearly seen on current study. Prior client project coordinator ior right upper lobe mass is not clearly seen after surgery. Some posterior honeycombing or scarring in the upper lobe is noted. No new areas of abnormal hypermetabolic uptake are identified. There is b ackground mild left upper lung emphysematous change and apical pleural/parenchymal scarring. ABDOMEN AND PELVIS: No new areas of suspicious hypermetabolic uptake are seen. OSSEOUS STRUCTURES: No new areas of suspicious hypermetabolic uptake are present. OTHER CT: Mild to moderate calcified plaque bilateral carotid bulbs is redemonstrated. There is coronary artery calcification which is noted marked of coronary artery disease redemonstrate d. There is fairly moderate left atrial and left ventricular dilatation redemonstrated. There is fairly moderate calcified plaque abdominal aorta extending into pelvic branch vessels. Sigmoid colonic diverticulosis is redemonstrated. There is partial visualization of fixation hardware in the right hip. There is bifemoral crossover graft in the anterior lower pelvis redemonstrated. IMPRESSION: Lack of abnormal hypermetabolic uptake and history of surgery and radiation treatment are consistent with postsurgical and postradiation treatment changes to the right lung most prominent me dially right upper to midlung level extending into hilum. No convincing evidence of recurrent maligna ncy locally or distally.
== END | disposition home or self-care (01) ==
LOC: RADPETMAIN 13:28
PROVIDERS: ATTEND Internal Medicine Hematology & Oncology
DX: C34.11 Malignant neoplasm of upper lobe, right bronchus or lung (principal); Z92.3 Personal history of irradiation; Z98.890 Other specified postprocedural states
CPT/HCPCS: 78815; A9552

== ENCOUNTER 2017-12-14 07:38 | Day surgery (SDC) | payer MEDICARE ==
[2017-12-09 14:46] VITALS: BMI 24.3
[~2017-12-14 07:38] MED LIST changes: -DEXAMETHASONE SOD PHOSPHATE 10 MG/ML 1 ML VIAL IV ONE; -HYDROmorphone 1 MG/ML 1 ML SYRINGE IVP PRN; +LACTATED RINGERS 1,000 ML IV SCH; -LIDOCAINE 1% 20 ML VIAL (10MG/ML) FOR IV START INTRADERMA PRN; -MIDAZOLAM 2 MG/2 ML VIAL IV PRN; -ONDANSETRON 4 MG/2 ML VIAL IVP ONE; -SCOPOLAMINE 1.5MG/72HR PATCH TRANSDERM ONE; -ceFAZolin 2 GM in SODIUM CHLORIDE 0.9% 100 ML IVPB ONE; -metroNIDAZOLE-NS PMX 500 MG in SALINE 1 100ML.BAG IVPB ONE
[2017-12-14 07:57] VITALS: RESP 16; TEMP 97.9
[2017-12-14 08:03] LABS: Glucose,Whole Blood 105 mg/dL (75-99)
[2017-12-14] MEDS ORDERED: LIDOCAINE 1% INJ 10MG/ML (20 ML MDV) ONE (08:51)
[2017-12-14] MEDS ORDERED: PROPOFOL 10 MG/ML 20 ML VIAL IV ONE (08:51)
--- NOTE | 2017-12-14 09:30 | P.PCN ---
Date of Procedure: 12/14/17 Procedure(s) Performed: Procedure: Esophagogastroduodenoscopy and biopsy. Preoperative diagnosis: Dysphagia. Postoperative diagnosis: 1. Small sliding hiatal hernia with no obvious esophagitis or complicated reflux disease. 2. Mild antral gastritis and mild duodenitis. 3. Biopsies obtained from the duodenum, antrum and esophagus. 4. No evidence of esophageal strictures from prior radiation or any evidence of extrinsic compression to the esophagus or any masses or tumors. Preparation sedation: Was provided by anesthesia. Brief clinical history: The patient is a 67-year-old male who is referred for this evaluation because of solid food dysphagia that he has been having since July of last year. It sounds to be mild and not progressive and is not associated with other alarm symptoms such as weight loss. The patient completed chemotherapy and radiation therapy and had thoracotomy for lung cancer around 1 year ago. This evaluation is to assess for strictures or recurrent cancer. The patient has history of chronic reflux for years and continues to take Zantac to this day. Procedure: With the patient on his left lateral decubitus position and after informed consent and adequate sedation, I passed the Olympus-GIF 160 video upper endoscope through the cricopharyngeus down the esophagus. GE junction was around 37 cm from the incisors and there was a small sliding hiatal hernia. The esophagus showed minimal distal erythema but no ulcers, erosions or strictures. There was no evidence of extrinsic compression or cancer in the esophagus or any evidence of Gonzalez's esophagus. The endoscope was then passed into the stomach which was insufflated with air and inspected in detail including the retroflex view in the cardia. There was some mottling and erythema in the antrum but no ulcers or erosions. Pyloric channel did not show any ulcers. Duodenal bulb, post bulbar area and descending duodenum showed mild erythema and minimal friability but no ulcers, erosions or bleeding. I obtained biopsies from the duodenum, antrum and esophagus then the endoscope was withdrawn. The patient tolerated the procedure well. Plan: The patient was reassured. Will await pathology results and make further plans based on his course and biopsy results. We will keep you updated on his progress.
[2017-12-14 09:40] VITALS: BP 126/82; PULSE 73
== END 2017-12-14 10:06 | disposition home or self-care (01) ==
LOC: ORWHC2ENDO 07:38
DX: K29.70 Gastritis, unspecified, without bleeding (principal); K29.80 Duodenitis without bleeding; K21.0 Gastro-esophageal reflux disease with esophagitis; J44.9 Chronic obstructive pulmonary disease, unspecified; E11.9 Type 2 diabetes mellitus without complications; E78.5 Hyperlipidemia, unspecified; K44.9 Diaphragmatic hernia without obstruction or gangrene; Z88.2 Allergy status to sulfonamides; Z91.048 Other nonmedicinal substance allergy status; Z85.118 Personal history of other malignant neoplasm of bronchus and lung; Z87.891 Personal history of nicotine dependence; Z79.891 Long term (current) use of opiate analgesic; Z79.82 Long term (current) use of aspirin; Z79.1 Long term (current) use of non-steroidal anti-inflammatories (NSAID); Z79.899 Other long term (current) drug therapy; Z92.21 Personal history of antineoplastic chemotherapy
CPT/HCPCS: 88305; 43239; J2001; J2704

== ENCOUNTER → 2018-01-16 | Outpatient (CLI) | payer MEDICARE ==
[2018-01-16 08:42] LABS: HCT 41.5 % (39.0-53.0); HGB 13.6 gm/dL (13.0-17.5); MCH 27.1 pg (25.0-35.0); MCHC 32.8 g/dL (31.0-37.0); MCV 82.7 fL (80.0-100.0); Mean Platelet Volume 7.3; Platelet Count 243 k/uL (150-450); RBC 5.02 m/uL (4.30-5.90); WBC 4.2 k/uL (3.8-10.6)
[2018-01-16 08:52] LABS: ALT 32 U/L (21-72); AST 31 U/L (17-59); Albumin 4.2 g/dL (3.5-5.0); Alkaline Phosphatase 78 U/L (38-126); Anion Gap 11 mmol/L; Blood Urea Nitrogen 16 mg/dL (9-20); Calcium 9.8 mg/dL (8.4-10.2); Carbon Dioxide 29 mmol/L (22-30); Chloride 104 mmol/L (98-107); Cholesterol 155 mg/dL (<200); Glucose 103 mg/dL (74-99); HDL Cholesterol 51 mg/dL (40-60); LDL Cholesterol,Calculated 90 mg/dL (0-99); Potassium 4.6 mmol/L (3.5-5.1); Sodium 144 mmol/L (137-145); Total Protein 6.9 g/dL (6.3-8.2); Triglycerides 71 mg/dL (<150)
[2018-01-16 17:59] LABS: Hemoglobin A1C 5.8 % (4.0-6.0)
== END | disposition home or self-care (01) ==
LOC: LABWHC1 08:15
PROVIDERS: ATTEND Family Medicine
DX: E11.9 Type 2 diabetes mellitus without complications (principal); E78.5 Hyperlipidemia, unspecified; I27.9 Pulmonary heart disease, unspecified; E78.00 Pure hypercholesterolemia, unspecified
CPT/HCPCS: 36415; 80053; 80061; 83036; 84439; 84443; 85027

== ENCOUNTER → 2018-03-25 | Outpatient (CLI) | payer MEDICARE ==
[2018-03-25 09:38] LABS: Blood Urea Nitrogen 20 mg/dL (9-20)
--- NOTE | 2018-03-25 10:34 | CT ---
EXAMINATION TYPE: CT chest w con DATE OF EXAM: 03/25/2018 COMPARISON: PET/CT dated 11/28/[address] dated 11/19/2016 HISTORY: Personal history of lung cancer. Observe for metastasis. Right upper lobectomy and mediastin al lymph node resection. CT DLP: 283.4 mGycm. Automated Exposure Control for Dose Reduction was Utilized. TECHNIQUE: CT scan of the thorax is performed following without and with IV Contrast, patient inject ed with 100 mL of Isovue 300. FINDINGS: LUNGS: In comparison to the most recent CT thorax dated 11/19/2017 there is improvement in the consolid ative right suprahilar region with no measurable consolidation remaining. However there is interval g rowth of the pulmonary nodule within the superior segment of the left lower lobe on series 4 image 21 now measuring 7 mm and previously measuring 5 mm. Additionally there is interval growth of a left ap ical pulmonary nodule on series 4 image 14 barely perceptible on the prior exam of 11/19/2017 and now m easuring approximately 4 mm. On the right there is a spiculated density that is elongated favored to represent fibrosis on series 4 image 19 measuring approximately 7 mm. More nodular lesion is seen on image 15 posteriorly measuring 6 mm. Right-sided small pleural effusion, volume loss, and traction br onchiectasis are related to post radiation change. Bilateral subpleural reticulation is also seen. MEDIASTINUM: There are no greater than 1 cm hilar or mediastinal lymph nodes. No pericardial effusi on is seen. Mild coronary artery calcifications are present. Ascending thoracic aorta is within lew l limits of size. OTHER: No new suspicious osseous lesions. IMPRESSION: 1. Increasing size of two left pulmonary nodules suspicious for metastasis. 2. Decreased right suprahilar consolidation with residual bronchiectasis, peribronchial thickening, v olume loss, and small pleural effusion likely on the basis of posttreatment change. Two areas of nodu larity are subcentimeter and may relate to early fibrosis within the surrounding right lung. 3. No new mediastinal adenopathy or new suspicious osseous lesions.
== END | disposition home or self-care (01) ==
LOC: RADCTMAIN 09:02
PROVIDERS: ATTEND Internal Medicine Hematology & Oncology
DX: C34.11 Malignant neoplasm of upper lobe, right bronchus or lung (principal); J90 Pleural effusion, not elsewhere classified; J47.9 Bronchiectasis, uncomplicated; Z88.8 Allergy status to other drugs, medicaments and biological substances
CPT/HCPCS: 82565; 84520; 71260; Q9967

== ENCOUNTER 2018-04-07 06:36 | Day surgery (SDC) | payer MEDICARE ==
[2018-04-01 09:37] VITALS: BMI 24.0
[2018-04-07 07:04] LABS: Glucose,Whole Blood 95 mg/dL (75-99)
[2018-04-07 07:10] VITALS: RESP 16; TEMP 96.8
[2018-04-07] MEDS ORDERED: LIDOCAINE 1% INJ 10MG/ML (20 ML MDV) ONE (07:39)
[2018-04-07] MEDS ORDERED: PROPOFOL 10 MG/ML 20 ML VIAL IV ONE (07:39)
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
--- NOTE | 2018-04-07 08:01 | P.PCN ---
Date of Procedure: 04/07/18 Procedure(s) Performed: PREOPERATIVE DIAGNOSIS: Colon cancer screening POSTOPERATIVE DIAGNOSIS: Ascending colon and sigmoid colon polyp, diverticulosis PROCEDURE: Colonoscopy with snare polypectomy ANESTHESIA: MAC SURGEON: Layo Llanos M.D. SPECIMENS: Polyps ENDOSCOPIC PROCEDURE: The patient was placed on the endoscopy table in the left decubitus position. The Olympus colonoscope was inserted into the anus and passed under direct visualization to the base of the cecum. The appendiceal orifice was visualized. From that point the scope was slowly withdrawn inspecting all surfaces carefully. There were no neoplastic inflammatory or polypoid lesions throughout the cecum. In the ascending colon a small polyp was identified and removed using the snare with cautery technique. The remainder of the ascending transverse descending colon appeared normal. In the sigmoid additional polyp was identified and removed in a similar fashion. The remainder of the sigmoid and rectum appeared normal. There was mild left-sided diverticulosis present. Digital rectal examination was normal. The patient was taken to the recovery room in stable condition per anesthesia guidelines. RECOMMENDATIONS: Await biopsy results. Recommend follow-up colonoscopy 5 years.
[2018-04-07 08:40] VITALS: BP 115/71; PULSE 66
== END 2018-04-07 08:50 | disposition home or self-care (01) ==
LOC: ORWHC2ENDO 06:36
PROVIDERS: ATTEND Surgery
DX: Z12.11 Encounter for screening for malignant neoplasm of colon (principal); D12.2 Benign neoplasm of ascending colon; D12.5 Benign neoplasm of sigmoid colon; K57.30 Diverticulosis of large intestine without perforation or abscess without bleeding; I10 Essential (primary) hypertension; E78.5 Hyperlipidemia, unspecified; K21.9 Gastro-esophageal reflux disease without esophagitis; I27.20 Pulmonary hypertension, unspecified; Z87.891 Personal history of nicotine dependence; Z79.82 Long term (current) use of aspirin; Z85.118 Personal history of other malignant neoplasm of bronchus and lung; Z86.010 Personal history of colon polyps; E11.9 Type 2 diabetes mellitus without complications; Z88.2 Allergy status to sulfonamides; Z91.048 Other nonmedicinal substance allergy status; Z91.09 Other allergy status, other than to drugs and biological substances; Z79.899 Other long term (current) drug therapy; Z92.21 Personal history of antineoplastic chemotherapy; Z92.3 Personal history of irradiation
CPT/HCPCS: 88305; 45385; J2001; J2704; 45380

== ENCOUNTER → 2018-07-09 | Outpatient (CLI) | payer MEDICARE ==
[2018-07-09 13:04] LABS: Blood Urea Nitrogen 20 mg/dL (9-20)
--- NOTE | 2018-07-09 16:13 | CT ---
EXAMINATION TYPE: CT chest w con DATE OF EXAM: 07/09/2018 COMPARISON: 03/25/2018 HISTORY: Follow-up lung cancer. CT DLP: 517 mGycm, Automated exposure control for dose reduction was used. CONTRAST: Performed injected with 100 mL of Isovue M300. TECHNIQUE: Axial images were obtained at 5 mm thick sections. Reconstructed images are reviewed on [employer] computer in the coronal plane. FINDINGS: Portion of the thyroid visualized is normal. Postsurgical changes in the right suprahilar region. Stranding is present within the suprahilar regio n extending posteriorly. Some peripheral increased lung markings are present in the posterior lateral right upper lobe. In the left lung there is a nodular density along the major fissure measuring 0.8 cm. Series 3 image 22 lung windows. Was present previously but mildly enlarged previously measuring 0.7 cm. Additional 0.7 cm density is in the anterior lateral left upper lobe which may have increased in size over the i nterval previously measuring 0.4 cm. No enlarged mediastinal or hilar adenopathy is evident. The ascending aorta diameter at the level o f the main pulmonary artery is 2.9 cm. The main pulmonary artery diameter at the bifurcation is 2.[address] sections are obtained through the upper abdomen. Abdomen is essentially unremarkable. IMPRESSIONS: 1. There may be some subtle enlargement of left lung nodule suspicious for metastatic disease. 2. Right lung postsurgical changes appear stable.
== END | disposition home or self-care (01) ==
LOC: RADCTMAIN 12:16
PROVIDERS: ATTEND Internal Medicine Hematology & Oncology
DX: C34.11 Malignant neoplasm of upper lobe, right bronchus or lung (principal); Z98.890 Other specified postprocedural states; Z91.041 Radiographic dye allergy status
CPT/HCPCS: 82565; 84520; 71260; 36415; Q9967

== ENCOUNTER → 2018-07-17 | Outpatient (CLI) | payer MEDICARE ==
[2018-07-17 09:11] LABS: Basophils % (A) 1 %; Eosinophils # (A) 0.1 k/uL (0-0.7); Eosinophils % (A) 2 %; HCT 44.4 % (39.0-53.0); HGB 14.6 gm/dL (13.0-17.5); Lymphocytes # (A) 0.7 k/uL (1.0-4.8); Lymphocytes % (A) 16 %; MCH 28.9 pg (25.0-35.0); MCHC 32.8 g/dL (31.0-37.0); Mean Platelet Volume 7.5; Monocytes # (A) 0.5 k/uL (0-1.0); Monocytes % (A) 11 %; Neutrophils % (A) 68 %; Platelet Count 190 k/uL (150-450); RBC 5.04 m/uL (4.30-5.90); RDW 13.9 % (11.5-15.5); WBC 4.4 k/uL (3.8-10.6)
[2018-07-17 16:35] LABS: Albumin 4.7 g/dL (3.80-4.90); Albumin/Globulin Ratio 2.04 (1.20-2.10); Anion Gap 5.9 mmol/L (4.00-12.00); Calcium 9.4 mg/dL (8.7-10.3); Carbon Dioxide 29.1 mmol/L (21.6-31.8); Globulin 2.3 g/dL (2.1-3.7); Potassium 4.9 mmol/L (3.5-5.5); Total Bilirubin 1.5 mg/dL (0.2-1.2)
== END | disposition home or self-care (01) ==
LOC: LABWHC1 08:55
PROVIDERS: ATTEND Family Medicine
DX: C78.00 Secondary malignant neoplasm of unspecified lung (principal); E11.9 Type 2 diabetes mellitus without complications; E78.5 Hyperlipidemia, unspecified
CPT/HCPCS: 36415; 80053; 80061; 83036; 85025

== ENCOUNTER → 2018-12-30 | Outpatient (CLI) | payer MEDICARE ==
[2018-12-30 13:09] LABS: Blood Urea Nitrogen 22 mg/dL (9-20)
--- NOTE | 2018-12-30 13:58 | CT ---
EXAMINATION TYPE: CT chest w con DATE OF EXAM: 12/30/2018 COMPARISON: 07/09/2018 HISTORY: Lung cancer follow up. CT DLP: 316.1 mGycm Automated exposure control for dose reduction was used. CONTRAST: CT scan of the chest is performed with IV Contrast, patient injected with 100 mL of Isovue M300. FINDINGS: LUNGS: Postoperative changes of partial right upper lobe lobectomy. There is associated the post radi ation therapy change and bronchiectasis. Pleural-based nodule right upper lobe posteriorly measures 1 .2 centimeters which has enlarged from 1.1 cm previously. Right upper lobe elongated nodule has also enlarged and currently measures 1.5 cm versus 1.2 cm. Additional enlarging nodule right upper lobe im age 37 measures 9.3 mm versus 6.1 mm. 2 left upper lobe pulmonary nodules are also larger in size epifanio suring 6.7 mm and 6.8 mm respectively versus 6 and 5.3 mm. 1.1 cm pulmonary nodule left upper lobe ad jacent to the major fissure versus 7.8 mm. No new nodules are identified. Triangular-shaped density r ight lung base measuring 1.6 cm versus 1.6 cm previously. MEDIASTINUM: There are no greater than 1 cm hilar or mediastinal lymph nodes. No pericardial effusi on is seen. Thoracic aorta is of normal caliber. The heart is not enlarged. UPPER ABDOMEN: Hepatic steatosis without hepatic lesion identified within the [id number]. OTHER: No additional significant abnormality is seen. IMPRESSION: 1. Postoperative changes of the partial right upper lobectomy. 2. Pulmonary nodules as discussed most of which have increased in size. No new nodules are evident.
== END | disposition home or self-care (01) ==
LOC: RADCTMAIN 12:25
PROVIDERS: ATTEND Internal Medicine Hematology & Oncology
DX: Z03.89 Encounter for observation for other suspected diseases and conditions ruled out (principal); R91.8 Other nonspecific abnormal finding of lung field; C34.11 Malignant neoplasm of upper lobe, right bronchus or lung; Z90.2 Acquired absence of lung [part of]
CPT/HCPCS: 82565; 84520; 71260; 36415; Q9967

== ENCOUNTER → 2019-01-08 | Outpatient (CLI) | payer MEDICARE ==
--- NOTE | 2019-01-09 13:58 | PE ---
Nuclear medicine PET/CT HISTORY: Lung cancer, subsequent Patient received 12.5 mCi F-18 FDG intravenously in delayed scanning was performed from the skull bas e to the mid thighs. Localization and attenuation correction CT scan was performed. Correlation to prior nuclear medicine PET/CT 11/28/2017, chest CT 12/30/2018 Neck And chest: There are new bilateral pulmonary nodules compared to prior PET/CT, lesions are descr ibed in prior CT scan the upper lobes bilaterally and show associated hypermetabolic uptake, SUV in t he left upper lobe nodule is approximately 2-2.6, history right upper lobe on axial image 82 nodule m easures 12 mm and shows SUV 3.5. Hourglass shaped nodule in the right upper lobe on axial image 86 sh ows SUV 2.2. Left upper lobe nodule measuring 1.1 cm shows SUV 2.8. Right upper lobe nodule on axial image 112 does not show hypermetabolic uptake but is approximately 9 mm in size. There is no cervical , mediastinal, axillary, or hilar adenopathy. Coronary artery calcifications are present. Postop luo ges noted likely post right lobectomy. Pleural thickening is improved in the interval. No pericardial effusion. ABDOMEN: No evident lung mass or retroperitoneal adenopathy. No suspicious hypermetabolic uptake. Ath eromatous change present within the aorta. Postop changes are noted status post femoral-femoral bypas s grafts. Prostate is enlarged and shows associated calcification. Diverticular changes associated wi th the sigmoid colon. Osseous structures show postop changes in the right hip. No suspicious hypermetabolic uptake. IMPRESSION: Metastatic disease may be present in the upper lobes
== END | disposition home or self-care (01) ==
LOC: RADPETMAIN 14:22
PROVIDERS: ATTEND Internal Medicine Hematology & Oncology
DX: C34.11 Malignant neoplasm of upper lobe, right bronchus or lung (principal); Z92.21 Personal history of antineoplastic chemotherapy
CPT/HCPCS: 78815; A9552

== ENCOUNTER → 2019-01-11 | Outpatient (CLI) | payer MEDICARE ==
--- NOTE | 2019-01-11 08:58 | MR ---
EXAMINATION TYPE: MR brain wo/w con DATE OF EXAM: 01/11/2019 COMPARISON: NONE HISTORY: Advanced stage lung cancer with personal history of radiation presents with symptoms of dizz iness per patient. TECHNIQUE: Multiplanar, multisequence images of the brain and brainstem is performed without and with IV contras t, utilizing 7.5 mL intravenous Gadavist . FINDINGS: Diffusion weighted images demonstrate no evidence of a recent infarct or other diffusion ab normality. There is no worrisome extra-axial fluid collection. There is ventricular and sulcal promi nence noted. There are is occasional tiny focus of T2 hyperintensity seen throughout the white matter bilaterally. Approximately 10-15 small scattered lesions are present. Lesions are nonspecific in obi earance and distribution presumed on basis of product of chronic small vessel ischemic change in violet[place] ent this age. Midline structures demonstrate empty sella morphology. The craniocervical junction appears within no rmal limits. Post contrast images demonstrate no abnormal enhancement. The dural venous sinuses appe ar patent. The visualized sinuses are clear and the globes are intact. Nasal septum is slightly devia louisa to left of midline. No suspicious fluid signal bilateral mastoid air cells is present. IMPRESSION: 1. No suspicious enhancing masses identified to suggest metastatic disease to the brain. 2. Background mild diffuse cerebral atrophy and chronic small vessel ischemic change noted.
== END | disposition home or self-care (01) ==
LOC: RADMRIMAIN 07:41
PROVIDERS: ATTEND Radiology Radiation Oncology
DX: C34.11 Malignant neoplasm of upper lobe, right bronchus or lung (principal); Z92.3 Personal history of irradiation
CPT/HCPCS: 70553; A9585

== ENCOUNTER 2019-01-13 08:00 | Emergency (ER) | payer MEDICARE ==
[2019-01-13 08:14] VITALS: RESP 18
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
[2019-01-13 09:19] LABS: Appearance,Urine Clear (Clear); Bilirubin,Urine Negative (Negative); Blood,Urine Negative (Negative); Color,Urine Light Yellow; Glucose,Urine (UA) Negative (Negative); Ketones,Urine Negative (Negative); Leukocyte Esterase,Urine Moderate (Negative); Mucus,Urine Rare /hpf; Nitrite,Urine Negative (Negative); PH, Urine 5.5 (5.0-8.0); Protein,Urine Negative (Negative); Specific Gravity,Urine 1.005 (1.001-1.035); Urobilinogen,Urine <2.0 mg/dL (<2.0)
--- NOTE | 2019-01-13 09:39 | US ---
EXAMINATION TYPE: US scrotum with doppler. Grayscale and color Doppler Duplex imaging performed of armando chester scrotum. DATE OF EXAM: 01/13/2019 COMPARISON: NONE CLINICAL HISTORY: Pain. Pt states left testicle pain and swelling EXAM MEASUREMENTS: TESTICLES: Right Testicle: 5.1 x 2.6 x 3.4 cm Left Testicle: 4.6 x 2.6 x 3.9 cm EPIDIDYMIS HEAD: Right Epididymis: 1.2 cm Left Epididymis: 2.7 cm Doppler performed to assess for testicular vascularity; good bilateral color flow and waveforms are s een. There is no evidence of testicular torsion. Presence of hydroceles: No Presence of varicoceles: No Left epididymis enlarged, heterogeneous and hypervascular suggesting epididymitis No orchitis is evident. There is symmetrical blood flow within the bilateral testicles. IMPRESSION: 1. Hypervascularity of the left epididymis. Consider epididymitis within the differential.
[2019-01-13 10:18] VITALS: BP 150/95; PULSE 70; TEMP 98.4
== END 2019-01-13 10:16 | disposition home or self-care (01) ==
LOC: EC 08:00
DX: N45.1 Epididymitis (principal); E11.9 Type 2 diabetes mellitus without complications; K21.9 Gastro-esophageal reflux disease without esophagitis; I10 Essential (primary) hypertension; E78.5 Hyperlipidemia, unspecified; Z79.82 Long term (current) use of aspirin; Z79.899 Other long term (current) drug therapy; Z91.09 Other allergy status, other than to drugs and biological substances; Z91.041 Radiographic dye allergy status; Z88.2 Allergy status to sulfonamides; Z85.118 Personal history of other malignant neoplasm of bronchus and lung; Z92.21 Personal history of antineoplastic chemotherapy; Z92.3 Personal history of irradiation; Z90.2 Acquired absence of lung [part of]; Z95.820 Peripheral vascular angioplasty status with implants and grafts; Z87.891 Personal history of nicotine dependence
CPT/HCPCS: 76870; 81001; 87086; 93975; 99284

== ENCOUNTER → 2019-04-27 | Outpatient (CLI) | payer MEDICARE ==
[2019-04-27 09:20] LABS: African American GFR (CKD) >90 (>60 ml/min/1.73 sqM); Blood Urea Nitrogen 16 mg/dL (9-20); Non-African American GFR(CKD) >90 (>60 ml/min/1.73 sqM)
--- NOTE | 2019-04-27 11:25 | CT ---
EXAMINATION TYPE: CT angio neck DATE OF EXAM: 04/27/2019 HISTORY: carotid stenosis COMPARISON: CT the chest with contrast dated 03/16/2019 CT DLP: 341 mGycm. Automated Exposure Control for Dose Reduction was Utilized. TECHNIQUE: CTA scan of the neck is performed with IV Contrast, patient injected with 50 mL of Isovue 370, axial images are obtained, coronal and sagittal reformatted images are reviewed. Three-D recons tructed images are created on an independent workstation and reviewed. FINDINGS: Carotid/Vascular Structures: A few scattered calcified atheromatous changes seen at the aortic arch. Normal three-vessel takeoff. Bilateral common carotid arteries are patent. Minimal atheromatous bruce es are seen at the origin of the left vertebral artery. Proximal bilateral vertebral arteries are pat ent. Large peripherally calcified atheromatous plaque is seen at the right carotid bifurcation extending s uperiorly into the proximal right internal carotid artery causing near complete occlusion with a lume n diameter measuring up to 1.5 mm. There is contrast opacification in the remaining portions of the r ight internal carotid artery. The plaque measures approximately 5.9 x 18.9 mm in AP by craniocaudad d imension. In the left carotid bifurcation and proximal left internal carotid artery there is scattered calcific ations anterior laterally causing approximately 20% stenosis. Remaining portions of the left internal carotid artery are patent. Bilateral vertebral arteries are patent. Basilar artery is patent. External carotid arteries are allen nt. Other: Redemonstration of partially visualized right upper lobe volume loss medially with fibrosis. T here is redemonstration of left upper lobe solid nodules with the largest nodule seen medially measur ing up to 1.4 cm with previous measurement of 1.3 cm. Additionally, there are nodules at the anterior and mid left upper lobe which also appear increased in size and now measure 1.1 cm and 0.8 cm. 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 Approximately 20% stenosis in the proximal left internal carotid artery. Enlarging left upper lobe pulmonary nodules when compared to 03/16/2019 suspicious for metastatic disea se.
== END | disposition home or self-care (01) ==
LOC: RADCTMAIN 08:29
PROVIDERS: ATTEND Thoracic Surgery (Cardiothoracic Vascular Surgery)
DX: I65.23 Occlusion and stenosis of bilateral carotid arteries (principal)
CPT/HCPCS: 82565; 84520; 70498; 36415; Q9967

== ENCOUNTER → 2019-05-05 | Outpatient (CLI) | payer MEDICARE ==
[2019-05-05 15:05] LABS: Basophils % (A) 1 %; Eosinophils # (A) 0.1 k/uL (0-0.7); Eosinophils % (A) 2 %; HCT 45.6 % (39.0-53.0); HGB 14.8 gm/dL (13.0-17.5); Lymphocytes # (A) 0.9 k/uL (1.0-4.8); Lymphocytes % (A) 15 %; MCH 28.8 pg (25.0-35.0); MCHC 32.6 g/dL (31.0-37.0); MCV 88.3 fL (80.0-100.0); Mean Platelet Volume 6.8; Monocytes # (A) 0.6 k/uL (0-1.0); Monocytes % (A) 11 %; Neutrophils # (A) 4.1 k/uL (1.3-7.7); Neutrophils % (A) 69 %; Platelet Count 210 k/uL (150-450); RBC 5.16 m/uL (4.30-5.90); RDW 14.4 % (11.5-15.5)
[2019-05-05 15:19] LABS: Potassium 4.7 mmol/L (3.5-5.1)
== END | disposition home or self-care (01) ==
LOC: LABPAT 14:17
PROVIDERS: ATTEND Surgery
DX: Z01.812 Encounter for preprocedural laboratory examination (principal); I65.21 Occlusion and stenosis of right carotid artery
CPT/HCPCS: 80051; 82565; 84520; 85025

== ENCOUNTER 2019-05-26 05:55 | Inpatient (IN) | payer MEDICARE ==
[2019-05-19 15:39] VITALS: BMI 23.0
[2019-05-26] MEDS ORDERED: LIDOCAINE 1% 20 ML VIAL (10MG/ML) FOR IV START INTRADERMA ONE (06:48)
[2019-05-26] MEDS ORDERED: LACTATED RINGERS 1,000 ML IV ONE ×3 (06:48→15:20)
[2019-05-26 06:53] LABS: Glucose,Whole Blood 104 mg/dL (75-99)
[2019-05-26] MEDS ORDERED: ONDANSETRON 4 MG/2 ML VIAL IVP ONE (06:55)
[2019-05-26] MEDS ORDERED: DEXAMETHASONE SOD PHOSPHATE 10 MG/ML 1 ML VIAL IV ONE (06:56)
[2019-05-26] MEDS ORDERED: GLYCOPYRROLATE 0.2 MG/ML 2 ML VIAL ONE (11:27)
[2019-05-26] MEDS ORDERED: PROTAMINE SULFATE 10 MG/ML 5 ML VIAL IV ONE (11:27)
[2019-05-26] MEDS ORDERED: NEOSTIGMINE 1 MG/ML 10 ML VIAL ONE (11:27)
[2019-05-26] MEDS ORDERED: fentaNYL (PF) 50 MCG/ML 2 ML AMP ONE (11:27)
[2019-05-26] MEDS ORDERED: ePHEDrine SULFATE/0.9% NACL/PF 50 MG/5 ML SYRINGE IV ONE (11:27)
[2019-05-26] MEDS ORDERED: PROPOFOL 10 MG/ML 20 ML VIAL IV ONE (11:27)
[2019-05-26] MEDS ORDERED: SUCCINYLCHOLINE CHLORIDE 100 MG/5 ML SYR IV ONE (11:27)
[2019-05-26] MEDS ORDERED: MIDAZOLAM 2 MG/2 ML VIAL ONE (11:27)
[2019-05-26] MEDS ORDERED: HEPARIN SODIUM,PORCINE 10,000 UNIT/ML 1 ML VIAL ONE (11:27)
[2019-05-26] MEDS ORDERED: ROCURONIUM BROMIDE 10 MG/ML 10 ML VIAL IV ONE (11:27)
[2019-05-26] MEDS ORDERED: LABETALOL 5 MG/ML VIAL MDV ONE (11:27)
[2019-05-26] MEDS ORDERED: LIDOCAINE 1% INJ 10MG/ML (20 ML MDV) ONE (11:27)
[2019-05-26] MEDS ORDERED: PHENYLEPHRINE-0.9% NACL SYG 1 MG/10 ML SYRINGE ONE (11:27)
[2019-05-26] MEDS ORDERED: LIDOCAINE 1% INJ 10MG/ML (20 ML MDV) SQ ONE (12:11)
[2019-05-26] MEDS ORDERED: SODIUM CHLORIDE 0.9% 500 ML 500 ML with HEPARIN SODIUM,PORCINE 5,000 UNIT IV ONE ×2 (12:13)
[2019-05-26] MEDS ORDERED: ceFAZolin 2 GM, BACITRACIN 100,000 UNIT in SODIUM CHLORIDE 0.9% 500 ML 500 ML IRRIGATION ONE (12:14)
--- NOTE | 2019-05-26 13:31 | P.OP ---
Date of Procedure: 05/26/19 Preoperative Diagnosis: High-grade right internal carotid artery stenosis. Postoperative Diagnosis: Same. Procedure(s) Performed: Right carotid endarterectomy with patch angioplasty. Implants: None. Anesthesia: GERARDA Surgeon: Sean Marcial Estimated Blood Loss (ml): 30 Pathology: other (Right carotid plaque.) Condition: stable Disposition: ICU Indications for Procedure: High-grade right internal carotid artery stenosis. This is confirmed on duplex and CT angiography. Operative Findings: Ulcerated hemodynamically severe plaque Description of Procedure: Patient is brought to the operating room and placed in the supine position. The patient was then administered general endotracheal anesthesia delivered by the department anesthesiology. Patient received intravenously administered prophyla ctic antibiotics in the perioperative phase. The right lateral neck supraclavicular and anterior chest wall were sterilely prepped and draped in usual manner. Lemon catheter is placed to gravity drainage. Skin incision was made on the right along the anterior border stroke line mastoid muscle carried down through the subcutaneous tissues. Platysma muscle was divided. Hemostasis was achieved using electrocautery. The incision was then deepened. The facial vein was identified dissected free of investing tissues. It was then doubly ligated with silk suture and divided between the sutures. Dissection was carried down the level the carotid sheath. The internal carotid artery was retracted posteriorly. The proximal portion of the common carotid artery was identified and dissected free of investing tissues and encircled with vessel loop. Dissection was then continued up toward the level of bulb where the superior thyroid and external carotid artery origins were dissected free of investing tissues and encircled Vesseloops. Dissection was then carried along the bulb and along the internal carotid artery to a point passed the level of plaquing. Hypoglossal nerve was identified and left undisturbed. The patient received intravenously Mr. heparin. ACT was eventually found to be 370. The Vesseloops surrounding the superior thyroid and external carotid arteries were drawn closed. Vessel loops surrounding the internal and common carotid arteries were drawn closed. Arteriotomy was then made in the common carotid artery extended with Pott Brenner scissors through the bulb into the internal carotid artery to a level past the plaquing. Stump pressure was measured at 67 mmHg and thus no shunting was felt necessary. Endarterectomy was then begun at the level common and extended to the bulb level. Retraction endarterectomy was performed on the external system. The endarterectomy plane was then continued into the internal carotid segment and the distal end of the plaque feathered off relatively well. The plaque was sent to pathology. Reinspection of the remaining luminal surface was performed. Any loose or free- floating material was removed. Incision point from the endarterectomized to the non-endarterectomized segment was tacked with 6-0 Prolene suture. Arteriotomy closure was achieved with a bovine pericardial patch and 6-0 Prolene suture placed in running fashion. Just prior to completion of the anastomotic line the internal and external carotid arteries were backbled and no thrombus was retrieved. The common carotid artery was flushed and again no thrombus was retrieved. The anastomotic line was then completed. The internal carotid artery vessel loop was released. The internal carotid artery was then occluded at its origin. Vessel loops surrounding the superior thyroid, external carotid and finding the common carotid artery were released thus flushing any potential debris into the external system. Flow was then restored into the internal segment. Excellent pulse was identified in the internal carotid artery distal to the endarterectomized segment. The patient was Mr. 25 mg protamine to help reverse the heparin effect. The wou nd was irrigated. No bleeding points were identified. Suture line was intact. With the above findings noted the deep tissues closed with 3-0 Vicryl, and the dermis was closed with 4-0 Monocryl in running intradermal fashion. Steri- Strips and appropriate dressings were applied. Patient tolerated procedure well awoke without apparent consultation was transferred to the recovery area in satisfactory and stable condition.
[2019-05-26] MEDS ORDERED: IBUPROFEN 400 MG TAB PO PRN (13:33)
[2019-05-26] MEDS ORDERED: ALBUTEROL NEBULIZED 2.5 MG/3 ML INHALATION PRN (13:33)
[2019-05-26] MEDS ORDERED: HYDROcodone/APAP 5-325MG 1 EACH TAB PO PRN ×2 (13:33→13:37)
[2019-05-26] MEDS ORDERED: LORATADINE 10 MG TAB PO PRN (13:33)
[2019-05-26] MEDS ORDERED: FAMOTIDINE 20 MG TAB PO PRN (13:33)
[2019-05-26 15:37] LABS: Glucose,Whole Blood 135 mg/dL (75-99)
[2019-05-26] MEDS: ASPIRIN 81 MG PO SCH (15:50)
[2019-05-26] MEDS: LOSARTAN 50 MG TAB PO SCH (15:50)
[2019-05-26 20:57] LABS: Glucose,Whole Blood 168 mg/dL (75-99)
[2019-05-26] MEDS ORDERED: ATORVASTATIN 10 MG TAB PO SCH (21:00)
[2019-05-27 05:06] LABS: HCT 36.8 % (39.0-53.0); HGB 12.5 gm/dL (13.0-17.5); MCHC 33.9 g/dL (31.0-37.0); MCV 85.8 fL (80.0-100.0); Mean Platelet Volume 7.7; Platelet Count 231 k/uL (150-450); RBC 4.29 m/uL (4.30-5.90); RDW 14.9 % (11.5-15.5); WBC 10.2 k/uL (3.8-10.6)
[2019-05-27 05:12] LABS: African American GFR (CKD) >90 (>60 ml/min/1.73 sqM); Anion Gap 9 mmol/L; Blood Urea Nitrogen 16 mg/dL (9-20); Calcium 9.3 mg/dL (8.4-10.2); Carbon Dioxide 24 mmol/L (22-30); Chloride 107 mmol/L (98-107); Glucose 116 mg/dL (74-99); Non-African American GFR(CKD) >90 (>60 ml/min/1.73 sqM); Sodium 140 mmol/L (137-145)
[2019-05-27 06:56] LABS: Glucose,Whole Blood 106 mg/dL (75-99)
--- NOTE | 2019-05-27 08:11 | P.PN ---
Subjective Progress Note Date: 05/27/19 Principal diagnosis: S/P right CEA Patient seen and examined. Doing well overnight. No complaints. Pain controlled. Hasn't ambulated yet but feels good. No fevers, chills, nausea, vomiting, chest pain or shortness of breath. Objective - Vital Signs Vital signs: Vital Signs Temp 98.8 F 05/27/19 04:00 Pulse 65 05/27/19 07:00 Resp 18 05/27/19 07:00 BP 111/61 05/27/19 05:00 Pulse Ox 91 L 05/27/19 07:00 Intake & Output 05/26/19 05/27/19 05/27/19 18:59 06:59 18:59 Intake Total 1422 127 3 Output Total 60 2150 Balance 136 -2022 3 Weight 82.4 kg Intake: IV 1062 77 3 NS 60 27 3 ceFAZolin 1,000 mg In 50 Sodium Chloride 0.9% 50 ml @ 100 mls/hr IVPB Q8H [facility] Rx#:[id number] Intake, IV Titration 50 Amount ceFAZolin 1,000 mg In 50 Sodium Chloride 0.9% 50 ml @ 100 mls/hr IVPB Q8H [facility] Rx#:[id number] Oral 360 Output: Urine 50 2150 Estimated Blood Loss 10 ABP, PAP, CO, CI - Last Documented Arterial Blood Pressure 146/67 - Exam right neck incision c/d/i no focal deficits. - Labs CBC & Chem 7: 05/27/19 04:45 05/27/19 04:45 Labs: Abnormal Lab Results - Last 24 Hours (Table) 05/26/19 05/26/19 05/27/19 Range/Units 15:36 20:55 04:45 RBC 4.29 L (4.30-5.90) m/uL Hgb 12.5 L (13.0-17.5) gm/dL Hct 36.8 L (39.0-53.0) % Glucose (74-99) mg/dL POC Glucose (mg/dL) 135 H 168 H (75-99) mg/dL 05/27/19 05/27/19 Range/Units 04:45 06:53 RBC (4.30-5.90) m/uL Hgb (13.0-17.5) gm/dL Hct (39.0-53.0) % Glucose 116 H (74-99) mg/dL POC Glucose (mg/dL) 106 H (75-99) mg/dL Assessment and Plan Assessment: 1. POD 1 R CEA secondary to carotid stenosis Plan: ok for d/c home today. follow up in office in 2 weeks. continue asa, statin
[2019-05-27] MEDS: ASPIRIN 81 MG PO SCH (08:21)
[2019-05-27] MEDS: LOSARTAN 50 MG TAB PO SCH (08:21)
[2019-05-27] MEDS ORDERED: MULTIVITAMINS, THERA 1 EACH TAB PO SCH (09:00)
[2019-05-27] MEDS ORDERED: MAGNESIUM OXIDE 400 MG TAB PO SCH (09:00)
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
[2019-05-27 10:36] VITALS: TEMP 98
[2019-05-27 11:44] LABS: Glucose,Whole Blood 110 mg/dL (75-99)
[2019-05-27 14:02] VITALS: BP 131/81; PULSE 64; RESP 20
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
== END 2019-05-27 14:36 | disposition home or self-care (01) | DRG 39 ==
LOC: 2ORMAIN 05:55 → EDSTATUS 07:30 → 2SICU 14:56
PROVIDERS: ADMIT Surgery; ATTEND Surgery
PROC: 03UK0JZ Supplement Right Internal Carotid Artery with Synthetic Substitute, Open Approach (ICD-10-PCS; 2019-05-26)
PROC: 03CK0ZZ Extirpation of Matter from Right Internal Carotid Artery, Open Approach (ICD-10-PCS; principal; 2019-05-26 07:30)
DX: I65.21 Occlusion and stenosis of right carotid artery (principal); E11.51 Type 2 diabetes mellitus with diabetic peripheral angiopathy without gangrene; E78.5 Hyperlipidemia, unspecified; I10 Essential (primary) hypertension; G44.009 Cluster headache syndrome, unspecified, not intractable; K44.9 Diaphragmatic hernia without obstruction or gangrene; K21.9 Gastro-esophageal reflux disease without esophagitis; M19.90 Unspecified osteoarthritis, unspecified site; H35.30 Unspecified macular degeneration; R91.8 Other nonspecific abnormal finding of lung field; Z79.82 Long term (current) use of aspirin; Z79.899 Other long term (current) drug therapy; Z85.118 Personal history of other malignant neoplasm of bronchus and lung; Z87.891 Personal history of nicotine dependence; Z92.3 Personal history of irradiation; Z92.21 Personal history of antineoplastic chemotherapy; Z90.2 Acquired absence of lung [part of]; Z91.041 Radiographic dye allergy status; Z88.2 Allergy status to sulfonamides; Z91.048 Other nonmedicinal substance allergy status; Z80.6 Family history of leukemia
CPT/HCPCS: 36415; 80048; 85027; 86850; 86900; 86901; 88304

== ENCOUNTER 2019-06-17 20:26 | Observation (INO) | payer MEDICARE ==
[2019-06-17] MEDS ORDERED: SODIUM CHLORIDE 0.9% 1,000 ML IV ONE (21:22)
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
[2019-06-17 21:47] LABS: Basophils % (A) 0 %; Eosinophils # (A) 0.1 k/uL (0-0.7); Eosinophils % (A) 1 %; HCT 40.3 % (39.0-53.0); HGB 13.4 gm/dL (13.0-17.5); Lymphocytes # (A) 0.4 k/uL (1.0-4.8); Lymphocytes % (A) 4 %; MCH 29.5 pg (25.0-35.0); MCHC 33.3 g/dL (31.0-37.0); MCV 88.6 fL (80.0-100.0); Mean Platelet Volume 6.3; Monocytes # (A) 0.7 k/uL (0-1.0); Monocytes % (A) 7 %; Neutrophils # (A) 8.9 k/uL (1.3-7.7); Neutrophils % (A) 87 %; Platelet Count 263 k/uL (150-450); RBC 4.55 m/uL (4.30-5.90); RDW 13.8 % (11.5-15.5); WBC 10.3 k/uL (3.8-10.6)
--- NOTE | 2019-06-17 21:55 | XR ---
EXAMINATION TYPE: XR chest 2V DATE OF EXAM: 06/17/2019 COMPARISON: 03/20/2017 HISTORY: Short of breath. Pneumothorax. TECHNIQUE: Frontal and lateral views of the chest are obtained. FINDINGS: There is an approximate 30% right-sided pneumothorax. Trachea is midline. There is no evid ence of tension. There are chest leads. Heart size is normal. There is no heart failure. there is 1 cm nodular density in the right lower lobe. Thoracic aorta appears intact. Bony thorax appears intact. IMPRESSION: Right-sided pneumothorax not changed in size compared to CT scan today at 11:00 AM. No e vidence of tension. Right lower lobe and left upper lobe pulmonary nodules.
[2019-06-17 21:56] LABS: ALT 24 U/L (21-72); AST 30 U/L (17-59); African American GFR (CKD) >90 (>60 ml/min/1.73 sqM); Albumin 4.7 g/dL (3.5-5.0); Alkaline Phosphatase 59 U/L (38-126); Anion Gap 12 mmol/L; Blood Urea Nitrogen 19 mg/dL (9-20); Calcium 10.2 mg/dL (8.4-10.2); Carbon Dioxide 24 mmol/L (22-30); Chloride 105 mmol/L (98-107); Glucose 136 mg/dL (74-99); Potassium 4.4 mmol/L (3.5-5.1); Sodium 141 mmol/L (137-145); Total Bilirubin 1.4 mg/dL (0.2-1.3); Total Protein 7.5 g/dL (6.3-8.2)
[2019-06-17] MEDS ORDERED: NALOXONE 0.4 MG/ML 1 ML VIAL IV PRN (22:28)
[2019-06-18] MEDS ORDERED: IPRATROPIUM-ALBUTEROL 3 ML NEB INHALATION PRN (05:16)
[2019-06-18] MEDS ORDERED: HYDROcodone/APAP 5-325MG 1 EACH TAB PO PRN (06:00)
[2019-06-18] MEDS ORDERED: IBUPROFEN 400 MG TAB PO PRN (06:00)
--- NOTE | 2019-06-18 06:28 | XR ---
EXAMINATION TYPE: XR chest 2V DATE OF EXAM: 06/18/2019 HISTORY: pneumothorax. REFERENCE: Previous study dated 06/17/2019. FINDINGS: There continues to be right-sided pneumothorax, unchanged in size from the previous study a nd approaching 50% by volume. The left lung is clear. Heart size is normal. I suspect a small right e ffusion. IMPRESSION: CONTINUING RIGHT-SIDED PNEUMOTHORAX, UNCHANGED FROM PREVIOUS.
[2019-06-18] MEDS ORDERED: ALBUTEROL NEBULIZED 2.5 MG/3 ML INHALATION SCH (08:00)
[2019-06-18] MEDS ORDERED: FAMOTIDINE 20 MG TAB PO PRN (09:00)
[2019-06-18] MEDS ORDERED: MAGNESIUM OXIDE 400 MG TAB PO SCH (09:00)
[2019-06-18] MEDS ORDERED: LOSARTAN 50 MG TAB PO SCH (09:00)
[2019-06-18] MEDS ORDERED: ASPIRIN 81 MG PO SCH (09:00)
[2019-06-18] MEDS ORDERED: LORATADINE 10 MG TAB PO PRN (09:00)
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
[2019-06-18 12:13] VITALS: BP 139/76; PULSE 62; RESP 18; TEMP 98.1
[2019-06-18] MEDS ORDERED: ATORVASTATIN 10 MG TAB PO SCH (21:00)
--- NOTE | 2019-06-19 14:36 | P.DS ---
Providers Date of admission: 06/17/19 22:28 Expected date of discharge: 06/18/19 Attending physician: hCristy Quevedo Consults: 06/17/19 22:29 Consult Physician Urgent Consulting Provider: Sean Marie Consult Reason/Comments: established patient Do you want consulting provider notified?: Yes, Notify in am 06/18/19 09:28 Consult Physician Routine Consulting Provider: Misa Horan Consult Reason/Comments: Pulmoanry management Do you want consulting provider notified?: Already Contacted Primary care physician: Enrique Estrada [facility] Course: Patient was later dated by by pulmonology and thoracic surgery. No further intervention is being recommended by them and they recommended that patient can be discharged and if he has chest pain or shortness of breath he is to come back. Anticipating spontaneous resolution of pneumothorax. The rest of the details please refer to my HPI Patient Condition at Discharge: Stable Plan - Discharge Summary New Discharge Prescriptions: No Action Ibuprofen [Motrin] 400 mg PO Q6HR PRN PRN Reason: Pain Glucosamine Sulfate 500 mg PO DAILY Ascorbic Acid [Vitamin C] 500 mg PO DAILY Loratadine [Claritin] 10 mg PO DAILY PRN PRN Reason: Allergy Symptoms Magnesium Oxide [Mag-Ox] 250 mg PO DAILY Vit C/E/Zn/Coppr/Lutein/Zeaxan [Preservision Areds 2 Softgel] 1 cap PO BID Hydrocodone/Acetaminophen [[place] 5-325] 1 tab PO Q6HR PRN PRN Reason: Pain Albuterol Inhaler [Ventolin Hfa Inhaler] 2 puff INHALATION RT-BID Aspirin [Adult Low Dose Aspirin EC] 81 mg PO DAILY Losartan [Cozaar] 50 mg PO DAILY Folic Acid 0.4 mg PO DAILY Ranitidine HCl [Zantac] 75 mg PO DAILY PRN PRN Reason: GERD Multivit-Min/FA/Lycopen/Lutein [Centrum Silver Men Tablet] 1 tab PO DAILY Simvastatin [Zocor] 20 mg PO HS Biotin 5 mg PO DAILY Calcium Carbonate [Calcium] 600 mg PO DAILY Sildenafil Citrate [Viagra] 100 mg PO ONCE PRN PRN Reason: E.D. Discharge Medication List Ibuprofen [Motrin] 400 mg PO Q6HR PRN 12/08/14 [History] Ascorbic Acid [Vitamin C] 500 mg PO DAILY 12/11/14 [History] Glucosamine Sulfate 500 mg PO DAILY 12/11/14 [History] Loratadine [Claritin] 10 mg PO DAILY PRN 12/14/15 [History] Magnesium Oxide [Mag-Ox] 250 mg PO DAILY 11/25/16 [History] Vit C/E/Zn/Coppr/Lutein/Zeaxan [Preservision Areds 2 Softgel] 1 cap PO BID 11/25/16 [History] Albuterol Inhaler [Ventolin Hfa Inhaler] 2 puff INHALATION RT-BID 12/09/17 [History] Aspirin [Adult Low Dose Aspirin EC] 81 mg PO DAILY 12/09/17 [History] Hydrocodone/Acetaminophen [[place] 5-325] 1 tab PO Q6HR PRN 12/09/17 [History] Losartan [Cozaar] 50 mg PO DAILY 04/01/18 [History] Biotin 5 mg PO DAILY 01/13/19 [History] Folic Acid 0.4 mg PO DAILY 01/13/19 [History] Multivit-Min/FA/Lycopen/Lutein [Centrum Silver Men Tablet] 1 tab PO DAILY 01/13/19 [History] Ranitidine HCl [Zantac] 75 mg PO DAILY PRN 01/13/19 [History] Simvastatin [Zocor] 20 mg PO HS 01/13/19 [History] Calcium Carbonate [Calcium] 600 mg PO DAILY 06/17/19 [History] Sildenafil Citrate [Viagra] 100 mg PO ONCE PRN 06/17/19 [History] Follow up Appointment(s)/Referral(s): Enrique Estrada DO [Primary Care Provider] - 3 Days Ambulatory/Diagnostic Orders: XR chest 2V [RAD.AMB] Location: None Selected Discharge Disposition: HOME SELF-CARE
== END 2019-06-18 16:23 | disposition home or self-care (01) ==
LOC: EC 20:26 → 1SOBS 22:28
PROVIDERS: ADMIT Internal Medicine; ATTEND Internal Medicine
DX: J93.9 Pneumothorax, unspecified (principal); Z85.118 Personal history of other malignant neoplasm of bronchus and lung; E11.9 Type 2 diabetes mellitus without complications; K21.9 Gastro-esophageal reflux disease without esophagitis; E78.5 Hyperlipidemia, unspecified; I10 Essential (primary) hypertension; I65.21 Occlusion and stenosis of right carotid artery; R04.2 Hemoptysis; J44.9 Chronic obstructive pulmonary disease, unspecified; I73.9 Peripheral vascular disease, unspecified; G89.29 Other chronic pain; M54.9 Dorsalgia, unspecified; M19.90 Unspecified osteoarthritis, unspecified site; K44.9 Diaphragmatic hernia without obstruction or gangrene; H35.30 Unspecified macular degeneration; F41.9 Anxiety disorder, unspecified; Z90.2 Acquired absence of lung [part of]; Z79.1 Long term (current) use of non-steroidal anti-inflammatories (NSAID); Z79.899 Other long term (current) drug therapy; Z79.82 Long term (current) use of aspirin; Z79.891 Long term (current) use of opiate analgesic; Z91.041 Radiographic dye allergy status; Z88.2 Allergy status to sulfonamides; Z91.048 Other nonmedicinal substance allergy status; Z92.21 Personal history of antineoplastic chemotherapy; Z92.3 Personal history of irradiation; Z95.828 Presence of other vascular implants and grafts; Z87.828 Personal history of other (healed) physical injury and trauma; Z87.891 Personal history of nicotine dependence; Z80.6 Family history of leukemia
CPT/HCPCS: 99285; 36415 ×2; 94640; 94760; 93005; 80053; 82565; 84520; 85025; 71046 ×2; 71260; G0378 ×2; Q9967

== ENCOUNTER → 2019-06-17 | Outpatient (CLI) | payer MEDICARE ==
[2019-06-17 10:20] LABS: African American GFR (CKD) >90 (>60 ml/min/1.73 sqM); Blood Urea Nitrogen 18 mg/dL (9-20)
--- NOTE | 2019-06-17 18:18 | CT ---
EXAMINATION TYPE: CT chest w con DATE OF EXAM: 06/17/2019 COMPARISON: 03/16/2019 HISTORY: follow up lung ca, episodes of hemoptysis CT DLP: 291.3 mGycm, Automated exposure control for dose reduction was used. CONTRAST: Performed injected with 100 mL of Isovue 300. TECHNIQUE: Axial images were obtained at 5 mm thick sections. Reconstructed images are reviewed on [employer] computer in the coronal plane. FINDINGS: Portion of the thyroid visualized is normal. Minimal right pleural effusion is present. There is a loculated right pneumothorax estimated at 25%. There are several spiculated nodules within the bilateral lung monson. This would include: 0.5 cm nodule posterior left lung, series 4 image 10 A 1.0 cm nodule anterior left upper lobe, series 4 image 15. A 1.0 cm nodule left upper lobe. Series 4 image 16. A 1.3 cm spiculated nodule adjacent to the proximal descending thoracic aorta left upper lobe. Series 4 image 22. A 0.8 cm nodule within the periphery of the posterior lateral left lung. A 0.5 cm nodule along the major fissure left lower lobe. Series 4 image 51. A 1.2 cm rounded nodule within the mid right lung. Series 4 image 37. A 1.4 cm posterior right upper lobe nodule. Series 4 image 19. A 1.1 cm spiculated density at the right apex adjacent to the pneumothorax. Series 4 image 18 There are additional areas of pneumonitis in the posterior medial right apex and in the right suprahi lar region. Some peripheral increased pneumonitis changes in the periphery of the posterior lateral r ight upper lobe. No enlarged mediastinal or hilar adenopathy is evident. The ascending aorta diameter at the level o f the main pulmonary artery is 3.2 cm. The main pulmonary artery diameter at the bifurcation is 2.[address] sections are obtained through the upper abdomen. Abdomen is essentially unremarkable. IMPRESSIONS: 1. Approximately 25% pneumothorax right side 2. Multiple bilateral pulmonary nodules A Red level critical message alert has been initiated for Jarvis Su MD via the [employer] Critical Results System on 06/17/2019 6:16 PM. This message alert has been sent to Jarvis Su MD via the preferences provided by the clinician for the receipt of Radiology Critical Findings. Message ID [id number].
== END | disposition home or self-care (01) ==
LOC: RADCTMAIN 09:39
PROVIDERS: ATTEND Internal Medicine Hematology & Oncology
DX: C34.11 Malignant neoplasm of upper lobe, right bronchus or lung (principal); Z88.2 Allergy status to sulfonamides; Z91.048 Other nonmedicinal substance allergy status
CPT/HCPCS: 82565; 84520; 71260; 36415; Q9967

== ENCOUNTER → 2019-07-25 | Outpatient (CLI) | payer MEDICARE ==
[2019-07-25 07:52] LABS: African American GFR (CKD) >90 (>60 ml/min/1.73 sqM); Blood Urea Nitrogen 20 mg/dL (9-20)
--- NOTE | 2019-07-25 09:02 | CT ---
EXAMINATION TYPE: CT chest w con DATE OF EXAM: 07/25/2019 COMPARISON: 06/17/2019 HISTORY: Lung cancer CT DLP: 369.2 mGycm Automated exposure control for dose reduction was used. CONTRAST: CT scan of the chest is performed with IV Contrast, patient injected with 100 mL of Isovue 300. FINDINGS: LUNGS: Previously noted right-sided pneumothorax has resolved. Volume loss and postsurgical changes s een at the right upper lobe medially. Small right-sided pleural effusion. Previously noted pulmonary nodules seen bilaterally are stable. Approximately 4 nodules are seen on the right largest of which i s noted within the right upper lobe measuring 1.2 cm unchanged from prior study. Proximally 10 nodule s are seen on the left largest is a spiculated nodule left upper lobe measuring 1.3 cm versus 1.3 cm previously. MEDIASTINUM: There are no greater than 1 cm hilar or mediastinal lymph nodes. No pericardial effusi on is seen. Thoracic aorta is of normal caliber. The heart is not enlarged. UPPER ABDOMEN: No significant abnormality appreciated. OTHER: No additional significant abnormality is seen. IMPRESSION: 1. Resolution of previously noted right-sided pneumothorax. 2. Bilateral pulmonary nodules are essentially unchanged. Suspect metastatic disease. 3. Postoperative change of right upper lobe partial lobectomy.
== END ==
LOC: RADCTMAIN 07:24
PROVIDERS: ATTEND Internal Medicine Critical Care Medicine
DX: C34.90 Malignant neoplasm of unspecified part of unspecified bronchus or lung (principal); R91.8 Other nonspecific abnormal finding of lung field; Z98.890 Other specified postprocedural states; Z90.2 Acquired absence of lung [part of]; Z88.2 Allergy status to sulfonamides; Z91.048 Other nonmedicinal substance allergy status
CPT/HCPCS: 82565; 84520; 71260; 36415; Q9967

== ENCOUNTER → 2019-08-04 | Outpatient (CLI) | payer MEDICARE ==
[2019-08-04 07:16] LABS: HCT 40.5 % (39.0-53.0); HGB 13.3 gm/dL (13.0-17.5); MCH 29.2 pg (25.0-35.0); MCHC 32.8 g/dL (31.0-37.0); Mean Platelet Volume 5.9; Platelet Count 269 k/uL (150-450); RBC 4.55 m/uL (4.30-5.90); RDW 13.3 % (11.5-15.5); WBC 9.5 k/uL (3.8-10.6)
[2019-08-04 10:49] LABS: ALT 25 U/L (10-49); AST 26 U/L (14-35); African American GFR (CKD) 88.6 (60.0-200.0); Albumin/Globulin Ratio 2.25 (1.60-3.17); Alkaline Phosphatase 63 U/L (41-126); Calcium 10.9 mg/dL (8.7-10.3); Carbon Dioxide 29.5 mmol/L (21.6-31.8); Chloride 107 mmol/L (96-109); Chol/HDL Ratio 2.39; Cholesterol 129 mg/dL (0-200); Glucose 92 mg/dL (70-110); Non-African American GFR(CKD) 76.5 (60.0-200.0); Potassium 4.3 mmol/L (3.5-5.5); Sodium 144 mmol/L (135-145); Total Bilirubin 1.1 mg/dL (0.3-1.2); Total Protein 6.5 g/dL (6.2-8.2); Triglycerides <50.0 mg/dL (0.0-149.0)
[2019-08-04 14:28] LABS: Hemoglobin A1C 5.4 % (4.0-6.0)
== END | disposition home or self-care (01) ==
LOC: LABWHC1 06:37
PROVIDERS: ATTEND Family Medicine
DX: C78.00 Secondary malignant neoplasm of unspecified lung (principal); I27.9 Pulmonary heart disease, unspecified; E11.9 Type 2 diabetes mellitus without complications; E78.5 Hyperlipidemia, unspecified
CPT/HCPCS: 36415; 80053; 80061; 83036; 84153; 84439; 84443; 85027

== ENCOUNTER → 2019-10-31 | Outpatient (CLI) | payer MEDICARE ==
[2019-10-31 08:25] LABS: African American GFR (CKD) >90 (>60 ml/min/1.73 sqM); Blood Urea Nitrogen 18 mg/dL (9-20); Non-African American GFR(CKD) 89 (>60 ml/min/1.73 sqM)
--- NOTE | 2019-10-31 10:53 | CT ---
EXAMINATION TYPE: CT chest w con DATE OF EXAM: 10/31/2019 COMPARISON: 07/25/2019 HISTORY: Lung cancer CT DLP: 263.7 mGycm Automated exposure control for dose reduction was used. CONTRAST: CT scan of the chest is performed with IV Contrast, patient injected with 100 mL of Isovue 300. FINDINGS: LUNGS: Right suprahilar masslike density appears to have enlarged in size and measures 5.5 x 3.4 cm v ersus prior measurement of 5.1 x 2.2 cm. While this may in part reflect postsurgical change cannot ex clude residual mass or recurrent mass. There is right upper lobe volume loss identified. Persistent right upper lobe pleural effusion is unchanged. Scattered pulmonary nodules are again noted be demons trated. There are 11 pulmonary nodules left lung field versus approximately 10 previously. The larges t nodule left upper lobe measures 1.3 cm versus 1.3 cm previously. Within the right lung there are cu rrently 4-6 nodules largest again within the right upper lobe measures 1.2 cm versus 1.2 cm previousl y. MEDIASTINUM: Enlarging AP window lymph node measuring 1 cm versus 7 mm previously. No additional lymp h nodes greater than 1 cm identified at this time. Thoracic aorta is of normal caliber. The heart is not enlarged. UPPER ABDOMEN: No significant abnormality appreciated. OTHER: No additional significant abnormality is seen. IMPRESSION: 1. Increasing right hilar/suprahilar soft tissue may reflect recurrent or residual neoplasm. 2. Scattered pulmonary nodules as discussed. 3. Right upper lobe volume loss and small left pleural effusion. 4. Enlarging AP window lymph node.
== END | disposition home or self-care (01) ==
LOC: RADCTMAIN 07:47
PROVIDERS: ATTEND Internal Medicine Hematology & Oncology
DX: R91.1 Solitary pulmonary nodule (principal); J90 Pleural effusion, not elsewhere classified; R59.0 Localized enlarged lymph nodes; C34.11 Malignant neoplasm of upper lobe, right bronchus or lung; Z88.2 Allergy status to sulfonamides; Z88.3 Allergy status to other anti-infective agents
CPT/HCPCS: 82565; 84520; 71260; 36415; Q9967

== ENCOUNTER → 2019-11-09 | Outpatient (CLI) | payer MEDICARE ==
--- NOTE | 2019-11-09 11:12 | MR ---
EXAMINATION TYPE: MR brain wo/w con DATE OF EXAM: 11/09/2019 COMPARISON: Prior brain MRI 01/11/2019 HISTORY: Lung cancer / Headaches TECHNIQUE: Multiplanar, multisequence images of the brain and brainstem is performed without and with IV contras t, utilizing 7.5 mL intravenous Gadavist . FINDINGS: Diffusion weighted images demonstrate no evidence of a recent infarct or other diffusion ab normality. There is no extra-axial fluid collection or significant interval change in white matter s ignal abnormality. The ventricular system and cisternal spaces are normal in size and appearance. T he brain volume is age appropriate. Midline structures demonstrate normal morphology. The craniocervical junction appears within normal limits. Post contrast images demonstrate no abnormal enhancement. The dural venous sinuses appear pa tent. The visualized sinuses are clear and the globes are intact. IMPRESSION: Stable exam. No acute abnormality. Nonspecific white matter demyelination is stable and l ikely due to chronic small vessel ischemia. No evident metastasis.
== END | disposition home or self-care (01) ==
LOC: RADMRIMAIN 09:25
PROVIDERS: ATTEND Internal Medicine Hematology & Oncology
DX: G37.8 Other specified demyelinating diseases of central nervous system (principal); C34.11 Malignant neoplasm of upper lobe, right bronchus or lung
CPT/HCPCS: 70553; A9585

== ENCOUNTER → 2019-11-12 | Outpatient (CLI) | payer MEDICARE ==
--- NOTE | 2019-11-14 08:12 | PE ---
EXAMINATION TYPE: PET CT fusion skull to thigh DATE OF EXAM: 11/12/2019 COMPARISON: Most recent prior PET/CT January 08, 2019. Most recent chest CT October 31, 2019 and older CTs HISTORY: Lung cancer progress study had surgery and chemotherapy which ended June 2017. TECHNIQUE: Following the intravenous administration of 11.341 mCi of F-18 FDG, whole body images are performed from the skull base to the midthigh. Images are reviewed on the computer in the coronal, axial, and sagittal planes. Reconstructed rotating images are created on independent workstation and reviewed on the computer. A noncontrast CT is performed in conjunction with the PET scan. SCAN: Subsequent Scan FINDINGS: SKULL BASE AND NECK: New hypermetabolic uptake left aspect aryepiglottic fold with asymmetric thick ening axial image 62, max SUV 4.99. Primary throat neoplasm cannot be excluded. Consider direct visua lization. CHEST, MEDIASTINUM, AND HILAR REGION: Background mild to moderate underlying emphysematous changes re demonstrated. Persistent masslike consolidation medial aspect right upper lobe with abnormal hypermet abolic uptake extends from sutures at level right hilum difficult to accurately measure in size due t o elongated appearance, roughly 6.0 x 2.7 cm axial image 86 with hypermetabolic uptake more prominent inferiorly and medially max SUV 7.63 there are level of sutures. Scattered pulmonary nodules bilaterally increased in number and size from prior CTs. There is spicul ated 2.8 x 0.9 cm left upper lobe nodule or 2 adjacent nodules anteriorly with mild hypermetabolic up take, max SUV is 3.41 for reference. This has developed over several CTs. Stable tiny right pleural e ffusion. Abnormal right paratracheal 1.4 x 1.0 cm lymph node axial image 78, mild hypermetabolic uptake max CHAWLA V is 3.48. ABDOMEN AND PELVIS: No new areas of suspicious hypermetabolic uptake. OSSEOUS STRUCTURES: Destructive left lytic hypermetabolic lesion axial image 225 Max SUV 6.74. Pathol ogic fracture right lateral fourth rib axial image 93, max SUV is 8.68. OTHER CT: Coronary artery indication redemonstrated which is noted marked for underlying coronary art lul disease. Background Moderate emphysematous change redemonstrated. Right-sided volume loss from prior surgery. Moderate calcified plaque of aorta extends into branch vessels. Diverticula in the left and sigmoid c olon. There is bifemoral graft. Surgical change to the right proximal femur is partially imaged. IMPRESSION: Progression of metastatic disease from most recent PET/CT. Developing and enlarging bilat eral pulmonary nodules with hypermetabolic uptake along with early osseous metastatic disease. Suspic ious lesion left vocal cord level noted may warrant further workup with direct visualization for new primary.
== END | disposition home or self-care (01) ==
LOC: RADPETMAIN 10:34
PROVIDERS: ATTEND Internal Medicine Hematology & Oncology
DX: C34.11 Malignant neoplasm of upper lobe, right bronchus or lung (principal)
CPT/HCPCS: 78815; A9552

== ENCOUNTER → 2019-12-02 | Outpatient (CLI) | payer MEDICARE | END | disposition home or self-care (01) | LOC: LABPAT 09:02 | PROVIDERS: ATTEND Otolaryngology | DX: Z01.818 Encounter for other preprocedural examination (principal); I10 Essential (primary) hypertension | CPT/HCPCS: 93005 ==

== ENCOUNTER → 2020-01-31 | Outpatient (CLI) | payer MEDICARE ==
[2020-01-31 09:18] LABS: HCT 46.7 % (39.0-53.0); HGB 14.9 gm/dL (13.0-17.5); Hypochromasia Slight; MCH 27.6 pg (25.0-35.0); MCHC 31.9 g/dL (31.0-37.0); MCV 86.6 fL (80.0-100.0); Mean Platelet Volume 6.8; Platelet Count 325 k/uL (150-450); RDW 13.7 % (11.5-15.5); WBC 5.9 k/uL (3.8-10.6)
[2020-01-31 16:13] LABS: African American GFR (CKD) 88.6 (60.0-200.0); Albumin 4.3 g/dL (3.80-4.90); Albumin/Globulin Ratio 1.65 (1.60-3.17); Anion Gap 11.2 mmol/L (4.00-12.00); Calcium 9.9 mg/dL (8.7-10.3); Carbon Dioxide 28.8 mmol/L (21.6-31.8); Chol/HDL Ratio 3.16; Globulin 2.6 g/dL (1.6-3.3); LDL Cholesterol,Calculated 91.8 mg/dL (0.0-131.0); Non-African American GFR(CKD) 76.5 (60.0-200.0); Potassium 5.1 mmol/L (3.5-5.5); Total Protein 6.9 g/dL (6.2-8.2); VLDL Calculation 18.2 mg/dL (5.00-40.00)
[2020-01-31 17:37] LABS: Hemoglobin A1C 5.7 % (4.0-6.0)
== END | disposition home or self-care (01) ==
LOC: LABWHC1 08:17
PROVIDERS: ATTEND Family Medicine
DX: E78.5 Hyperlipidemia, unspecified (principal); E11.9 Type 2 diabetes mellitus without complications; J44.9 Chronic obstructive pulmonary disease, unspecified; I10 Essential (primary) hypertension; C34.90 Malignant neoplasm of unspecified part of unspecified bronchus or lung
CPT/HCPCS: 36415; 80053; 80061; 83036; 85027

== ENCOUNTER → 2020-04-16 | Outpatient (CLI) | payer MEDICARE ==
--- NOTE | 2020-04-16 12:26 | FL ---
Modified barium swallow. HISTORY: Dysphagia. Modified barium swallow was performed with the department of speech pathology. The patient was prese nted with various consistencies of barium. There is no evidence for aspiration or penetration. Suggestion of hypertrophy of the cricopharyngeus musculature. Full report is to follow from the department of speech pathology. Impression: No evidence for aspiration or penetration.
== END ==
LOC: RADFLMAIN 11:22
PROVIDERS: ATTEND Family Medicine
DX: R13.10 Dysphagia, unspecified (principal)
CPT/HCPCS: 74230

== ENCOUNTER → 2020-04-24 | Outpatient (CLI) | payer MEDICARE ==
[2020-04-24 10:47] LABS: African American GFR (CKD) >90 (>60 ml/min/1.73 sqM); Blood Urea Nitrogen 18 mg/dL (9-20); Non-African American GFR(CKD) >90 (>60 ml/min/1.73 sqM)
--- NOTE | 2020-04-24 11:47 | CT ---
"EXAMINATION TYPE: CT chest w con DATE OF EXAM: 04/24/2020 COMPARISON: CT chest October 31, 2019 and older CTs. Most recent PET CT November 12, 2019. HISTORY: Trouble swallowing, hx. lung cancer CT DLP: 247.0 mGycm. Automated Exposure Control for Dose Reduction was Utilized. TECHNIQUE: CT scan of the thorax is performed following with IV Contrast, patient injected with 100 mL of Isovue 300. FINDINGS: LUNGS: Background mild to moderate underlying emphysematous change redemonstrated. Hyperexpanded left lung again seen. Scattered pulmonary nodules at the left lung show progression in size and number from most recent CT and PET/CT. For reference there is new 8 mm medial left lower lob e nodule axial image 39. Spiculated central left upper lobe nodule shows interval growth measuring 18 x 16 mm current study axial image 21 versus 14 x [address] axial image 21. Slight worsening and dependent atelectasis in the left lower lobe is noted. Enlarging peripheral cavitary lesion left low er lobe axial image 47. There is small to moderate right pleural fluid collection with new pneumothorax component anteriorly axial image 32 for reference. A few scattered horizontal air-fluid levels. Fluid collection does not layer dependently. Progression or increase in size of the medial right upper lung mass or neoplasm wi th some calcification measuring approximately 4.7 x 3.3 x 6.7 cm current study axial image 17 and cor onal image [address] and PET/CT. Scattered small nodules on prior CT and PET/CT less w ell seen. Mild to moderate peripheral reticulation and/or fibrosis along with mild scattered atelecta tic change. MEDIASTINUM: There is progression in the confluent right hilar adenopathy with subcarinal and mediast inal extension measuring roughly 5.1 x 2.9 cm/24. There is significant irregular narrowing and occlus ion of the bronchus intermedius. Irregular narrowing of the right upper lobe bronchus is present. Sta ble borderline enlarged prevascular lymph node image 22. No cardiomegaly or pericardial effusion is s een. Coronary artery calcification is redemonstrated. Poor visualization of right lung arterial vesse ls presumed with worsening narrowing from obstructing right hilar mass or neoplasm. OTHER: No new adrenal masses. IMPRESSION: Significant interval neoplastic progression as detailed above. New right-sided pneumothor ax noted on a background of small to moderate nonsimple pleural fluid collection. A King level critical message alert has been initiated for Jarvis Su MD via the brettapproved 36 0 | Critical Results System on 04/24/2020 11:44 AM. This message alert has been sent to Jarvis Su MD via the preferences provided by the clinician for the receipt of Radiology Critical Findings. Hi ssage ID [id number]."
== END | disposition home or self-care (01) ==
LOC: RADCTMAIN 10:00
PROVIDERS: ATTEND Internal Medicine Hematology & Oncology
DX: C34.11 Malignant neoplasm of upper lobe, right bronchus or lung (principal); J93.9 Pneumothorax, unspecified; Z88.2 Allergy status to sulfonamides; Z91.048 Other nonmedicinal substance allergy status
CPT/HCPCS: 82565; 84520; 71260; 36415; Q9967

== ENCOUNTER → 2020-05-15 | Day surgery (SDC) | payer MEDICARE ==
[2020-05-10 09:47] VITALS: BMI 20.3
[~2020-05-15] MED LIST changes: +LIDOCAINE 1% (10MG/ML) FOR IV START INTRADERMA PRN; +LIDOCAINE 1% INJ 10MG/ML (20 ML MDV) ONE; +PROPOFOL 10 MG/ML 20 ML VIAL IV ONE
[2020-05-15 07:44] VITALS: TEMP 97
[2020-05-15 07:53] LABS: Glucose,Whole Blood 97 mg/dL (75-99)
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
--- NOTE | 2020-05-15 08:40 | P.PCN ---
Date of Procedure: 05/15/20 Procedure(s) Performed: PREOPERATIVE DIAGNOSIS: Malnutrition POSTOPERATIVE DIAGNOSIS: Same, esophageal stricture PROCEDURE: EGD with esophageal dilation and PEG tube placement SURGEON: Viet EBL: Minimal ANESTHESIA: Sedation COMPLICATIONS: None OPERATIVE PROCEDURE: The patient was placed in the supine position on the endoscopy table. The patient was sedated per anesthesia that time. The Olympus gastroscope was inserted into the oropharynx and passed under direct visualization to the mid esophagus. At 25 cm there was a stricture noted. No mucosal irregularities were seen to suggest neoplasm. The 8-10 mm balloon was utilized and sequentially filled to 8, 9, and 10 mm. Pressure was held for 1 minute at each level. Following that the scope was unable to advance beyond the stricture site. The 10-12 mm balloon was then utilized. The balloon was inflated to 10 and then 11 mm. Again pressure was held for 1 minute. Following that the scope was able to advance the stricture site without difficulty. There were no significant mucosal tears identified. The scope was able to be advanced into the third portion of the duodenum. No obstruction was seen. The pylorus was widely patent. The stomach was carefully inspected. The stomach was fully insufflated with air. The abdominal wall was inspected. The light was seen shining through the abdominal wall in the left upper quadrant. This site was chosen for PEG tube placement. The area was prepped in the usual sterile fashion. This area was then localized with lidocaine. A small vertical incision was made using the scalpel. The Seldinger needle was advanced into the lumen of the stomach the wire was advanced. The wire was grasped with an endoscopic snare. The wire was pulled through the oropharynx. The catheter was then threaded over the guidewire and the guidewire and catheter were pulled anteriorly until the hub of the PEG tube catheter was seated against the anterior wall the stomach. The circular bolster was applied and tightened down. The endoscope was then readvanced into the stomach. There was no evidence of any bleeding and there was appropriate tightness on the bolster. The catheter was cut appropriately. The dual port feeding adapter was applied. DISPOSITION: Stable to recovery room
[2020-05-15 08:50] VITALS: PULSE 69; RESP 16
[2020-05-15 09:08] VITALS: BP 147/80
== END ==
LOC: ORWHC2ENDO 07:25
PROVIDERS: ATTEND Surgery
DX: E43 Unspecified severe protein-calorie malnutrition (principal); C79.89 Secondary malignant neoplasm of other specified sites; K22.2 Esophageal obstruction; C34.11 Malignant neoplasm of upper lobe, right bronchus or lung; R63.4 Abnormal weight loss; K44.9 Diaphragmatic hernia without obstruction or gangrene; E11.9 Type 2 diabetes mellitus without complications; K21.9 Gastro-esophageal reflux disease without esophagitis; E78.5 Hyperlipidemia, unspecified; I10 Essential (primary) hypertension; G44.009 Cluster headache syndrome, unspecified, not intractable; H35.3230 Exudative age-related macular degeneration, bilateral, stage unspecified; I65.21 Occlusion and stenosis of right carotid artery; I70.202 Unspecified atherosclerosis of native arteries of extremities, left leg; J38.01 Paralysis of vocal cords and larynx, unilateral; J44.9 Chronic obstructive pulmonary disease, unspecified; F41.9 Anxiety disorder, unspecified; Z68.1 Body mass index [BMI] 19.9 or less, adult; Z86.69 Personal history of other diseases of the nervous system and sense organs; Z87.39 Personal history of other diseases of the musculoskeletal system and connective tissue; Z86.79 Personal history of other diseases of the circulatory system; Z92.21 Personal history of antineoplastic chemotherapy; Z92.3 Personal history of irradiation; Z98.890 Other specified postprocedural states; Z90.2 Acquired absence of lung [part of]; Z98.62 Peripheral vascular angioplasty status; Z87.81 Personal history of (healed) traumatic fracture; Z87.898 Personal history of other specified conditions; Z87.891 Personal history of nicotine dependence; Z79.899 Other long term (current) drug therapy; Z79.82 Long term (current) use of aspirin; Z79.51 Long term (current) use of inhaled steroids; Z79.52 Long term (current) use of systemic steroids; Z79.891 Long term (current) use of opiate analgesic; Z91.09 Other allergy status, other than to drugs and biological substances; Z91.041 Radiographic dye allergy status; Z88.2 Allergy status to sulfonamides; Z83.1 Family history of other infectious and parasitic diseases; Z82.3 Family history of stroke; Z80.6 Family history of leukemia
CPT/HCPCS: 43246; 43249; J2001; J2704; C1726 ×2; B4087

== ENCOUNTER → 2020-07-31 | Outpatient (CLI) | payer MEDICARE ==
[2020-07-31 10:38] LABS: African American GFR (CKD) >90 (>60 ml/min/1.73 sqM); Blood Urea Nitrogen 23 mg/dL (9-20); Non-African American GFR(CKD) >90 (>60 ml/min/1.73 sqM)
--- NOTE | 2020-07-31 14:22 | CT ---
EXAMINATION TYPE: CT chest w con DATE OF EXAM: 07/31/2020 COMPARISON: Prior CT chest 04/24/2020 HISTORY: Follow up lung cancer. CT DLP: 214.5 mGycm Automated exposure control for dose reduction was used. CONTRAST: CT scan of the chest is performed with IV Contrast, patient injected with 100 mL of Isovue 300. FINDINGS: LUNGS: Bandlike area of increased attenuation in left upper lobe with pleural extension shows a stabl e appearance, left upper lobe lung nodules show similar appearance, left lower lobe lung nodules also show a similar appearance. Previous cavitary lesion in the left lower lobe the subpleural location n o longer show central lucency. The right pleural effusion is again seen, abnormal soft tissue density in the right upper lobe is again noted and is slightly decreased in size, 6.4 cm in AP dimension as compared to prior when it measured approximately 7.1 cm. There is thickening along the right mainstem bronchus, abnormal narrowing of the bronchus as on prior. Volume loss is present in the right hemith orax. MEDIASTINUM: There are no greater than 1 cm hilar or mediastinal lymph nodes. No pericardial effusi on is seen. AORTA: No additional significant abnormality is seen. OTHER: Right adrenal nodule on prior exam measured 2.1 cm in greatest dimension and now measures obi roximately 2.7 cm, has increased somewhat in volume. IMPRESSION: Interval change in the left lower lobe lung nodule subpleural location as well as the so ft tissue in the right upper lobe may reflect posttreatment findings, nodule and abnormal soft tissue are slightly decreased in size. Slight progression in volume of right adrenal mass
== END | disposition home or self-care (01) ==
LOC: RADCTMAIN 10:00
PROVIDERS: ATTEND Internal Medicine Hematology & Oncology
DX: C34.11 Malignant neoplasm of upper lobe, right bronchus or lung (principal); Z88.2 Allergy status to sulfonamides; Z91.041 Radiographic dye allergy status
CPT/HCPCS: 82565; 84520; 71260; 36415; Q9967

== ENCOUNTER → 2020-08-15 | Outpatient (CLI) | payer MEDICARE ==
[2020-08-15 08:16] LABS: Anisocytosis Slight; Basophils % (A) 0 %; Eosinophils # (A) 0.1 k/uL (0-0.7); Eosinophils % (A) 2 %; HCT 37.7 % (39.0-53.0); HGB 12.7 gm/dL (13.0-17.5); Lymphocytes # (A) 0.2 k/uL (1.0-4.8); Lymphocytes % (A) 4 %; MCH 30.6 pg (25.0-35.0); MCHC 33.7 g/dL (31.0-37.0); MCV 90.7 fL (80.0-100.0); Mean Platelet Volume 6.9; Monocytes # (A) 0.4 k/uL (0-1.0); Monocytes % (A) 7 %; Neutrophils # (A) 5.5 k/uL (1.3-7.7); Neutrophils % (A) 85 %; Platelet Count 267 k/uL (150-450); RBC 4.15 m/uL (4.30-5.90); RDW 17.6 % (11.5-15.5); WBC 6.5 k/uL (3.8-10.6)
[2020-08-15 11:25] LABS: African American GFR (CKD) 110.8 (60.0-200.0); Albumin 4.5 g/dL (3.80-4.90); Albumin/Globulin Ratio 1.61 (1.60-3.17); Anion Gap 7.7 mmol/L (4.00-12.00); BUN/Creat Ratio 32.86 Ratio (12.00-20.00); Calcium 9.6 mg/dL (8.7-10.3); Carbon Dioxide 30.3 mmol/L (21.6-31.8); Chol/HDL Ratio 2.54; Globulin 2.8 g/dL (1.6-3.3); Non-African American GFR(CKD) 95.6 (60.0-200.0); Potassium 4.9 mmol/L (3.5-5.5); Total Bilirubin 1.2 mg/dL (0.3-1.2); Total Protein 7.3 g/dL (6.2-8.2)
[2020-08-15 11:34] LABS: PSA Annual Screen 1.4 ng/mL (0.0-4.0)
[2020-08-15 15:19] LABS: Hemoglobin A1C 5.6 % (4.0-6.0)
== END | disposition home or self-care (01) ==
LOC: LABWHC1 07:10
PROVIDERS: ATTEND Family Medicine
DX: Z00.00 Encounter for general adult medical examination without abnormal findings (principal); Z12.5 Encounter for screening for malignant neoplasm of prostate; J44.9 Chronic obstructive pulmonary disease, unspecified; E78.5 Hyperlipidemia, unspecified; G43.909 Migraine, unspecified, not intractable, without status migrainosus; E11.9 Type 2 diabetes mellitus without complications
CPT/HCPCS: 84439; 80061; 80053; 84443; 85025; 83036; 36415; G0103

== ENCOUNTER 2020-08-21 11:50 | Inpatient (IN) | payer MEDICARE ==
[2020-08-21 12:09] VITALS: TEMP 97.3
[2020-08-21] MEDS ORDERED: SODIUM CHLORIDE 0.9% 500 ML 500 ML IV STA (12:38)
[2020-08-21] MEDS ORDERED: ACETAMINOPHEN TAB 500 MG TAB PO STA (12:49)
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
[2020-08-21 13:05] LABS: ALT 21 U/L (4-49); AST 20 U/L (17-59); African American GFR (CKD) >90 (>60 ml/min/1.73 sqM); Albumin 3.2 g/dL (3.5-5.0); Alkaline Phosphatase 49 U/L (38-126); Anion Gap 4 mmol/L; Blood Urea Nitrogen 44 mg/dL (9-20); Calcium 8.4 mg/dL (8.4-10.2); Carbon Dioxide 28 mmol/L (22-30); Chloride 101 mmol/L (98-107); Glucose 137 mg/dL (74-99); Magnesium 1.8 mg/dL (1.6-2.3); Non-African American GFR(CKD) >90 (>60 ml/min/1.73 sqM); Potassium 5.3 mmol/L (3.5-5.1); Sodium 133 mmol/L (137-145); Total Bilirubin 1.5 mg/dL (0.2-1.3)
[2020-08-21 13:07] LABS: INR 1.1 (<1.2); Partial Thromboplastin Time 24.8 sec (22.0-30.0)
[2020-08-21 13:08] LABS: Anisocytosis Slight; HCT 26.5 % (39.0-53.0); MCH 30.5 pg (25.0-35.0); MCHC 35.1 g/dL (31.0-37.0); Mean Platelet Volume 8.2; Platelet Count 142 k/uL (150-450); RBC 3.04 m/uL (4.30-5.90); RDW 16.4 % (11.5-15.5); WBC 4.9 k/uL (3.8-10.6)
[2020-08-21 13:24] LABS: HGB 9.3 gm/dL (13.0-17.5)
[2020-08-21 13:40] LABS: Basophils # (M) 0.05 k/uL (0-0.2); Eosinophils # (M) 0.05 k/uL (0-0.7); Lymphocytes # (M) 0.34 k/uL (1.0-4.8); Monocytes # (M) 1.23 k/uL (0-1.0); Neutrophils # (M) 3.23 k/uL (1.3-7.7); Neutrophils % (M) 66 %; Nucleated Red Blood Cells 0 /100 WBC (0-0); Total Cells Counted 100
[2020-08-21 13:45] LABS: D-Dimer 1.27 mg/L FEU (<0.60)
[2020-08-21] MEDS ORDERED: SODIUM CHLORIDE 0.9% 1,000 ML IV ONE (14:37)
--- NOTE | 2020-08-21 14:38 | XR ---
EXAMINATION TYPE: XR chest 2V DATE OF EXAM: 08/21/2020 COMPARISON: 06/18/2019 INDICATION: Syncope, difficulty breathing TECHNIQUE: Frontal and lateral views of the chest are obtained. FINDINGS: The heart size is normal. The pulmonary vasculature is normal. Moderate to large right pleural effusion is present. Previous right pneumothorax not evident.. IMPRESSION: 1. Moderate to large right pleural effusion
[2020-08-21] MEDS ORDERED: IPRATROPIUM-ALBUTEROL 3 ML NEB INHALATION STA (14:43)
[2020-08-21 17:02] VITALS: BP 100/65; PULSE 89; RESP 24
[2020-08-21] MEDS ORDERED: LORazepam 2 MG/ML INJ IV STA (17:36)
[2020-08-21 17:44] LABS: Anisocytosis Slight; MCH 29.8 pg (25.0-35.0); MCHC 34.4 g/dL (31.0-37.0); MCV 86.7 fL (80.0-100.0); Mean Platelet Volume 8.1; RBC 1.88 m/uL (4.30-5.90); RDW 16.7 % (11.5-15.5); WBC 3.3 k/uL (3.8-10.6)
[2020-08-21 17:50] LABS: HGB 5.6 gm/dL (13.0-17.5)
[2020-08-21 17:52] LABS: HCT 16.3 % (39.0-53.0)
[2020-08-21] MEDS ORDERED: NOREPINEPHRINE 4 MG in SODIUM CHLORIDE 0.9% 250 ML IV ONE (18:00)
[2020-08-21] MEDS ORDERED: diphenhydrAMINE 50 MG/ML 1 ML VIAL IVP STA (18:02)
[2020-08-21] MEDS ORDERED: HYDROCORTISONE SUCCINATE 100 MG/2 ML VIAL IV STA (18:02)
[2020-08-21] MEDS ORDERED: FAMOTIDINE 20 MG/2 ML VIAL IV STA (18:02)
[2020-08-21] MEDS ORDERED: methylPREDNISolone SOD SUCCI 125 MG/2 ML VIAL IV STA (18:02)
[2020-08-21 18:32] LABS: Band Neutrophils % 2 %; Lymphocytes # (M) 0.43 k/uL (1.0-4.8); Monocytes # (M) 0.89 k/uL (0-1.0); Neutrophils % (M) 58 %; Nucleated Red Blood Cells 0 /100 WBC (0-0); Total Cells Counted 100
[2020-08-21 18:34] LABS: Platelet Count 98 k/uL (150-450)
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
--- NOTE | 2020-08-21 19:19 | CT ---
EXAMINATION TYPE: CT chest angio for PE DATE OF EXAM: 08/21/2020 COMPARISON: 07/31/2020 HISTORY: Shortness of breath, dizziness, and blood coming out of peg tube. Hx of lung cancer. CT DLP: 334.7 mGycm Automated exposure control for dose reduction was used. CONTRAST: Performed with IV Contrast, patient injected with 100ml mL of Isovue 370. There are 3-D post processed images. There is large right pleural effusion. Heart size is normal. There is no pericardial effusion. There is masslike consolidation at the posterior aspect of the right pulmonary hilum. This measures 5 x 3 c m. There is narrowing of the right lower lobe bronchus. The channel is narrowed to 2 to 3 mm. There i s some mild spiculated infiltrate in the anterior left upper lobe that measures 3 x 1.5 cm. There is a 1.5 cm irregular mass posterior and superior to the left pulmonary hilum. There is 1 cm subpleural noncalcified nodule anterior medial left upper lobe. There are a few nodules in the left lower lobe t hat measure up to 1.3 cm. Thoracic aorta is intact. There is no aneurysm. There is no dissection. The ascending aorta measures 2.8 cm. There is significant narrowing of the right pulmonary artery. I see no filling defect in the branches of the left pulmonary artery. There is significant pruning of the right pulmonary artery branches wi th only flow seen in the right lower lobe branch which is narrowed. The bony thorax is intact. There is no compression fracture. Exam limited slightly by motion. IMPRESSION: There is large mass at the right pulmonary hilum and extending into the superior segment of the right lower lobe. There is significant encasement of the branches of the right pulmonary artery which are all mostly obliterated. There is also stenosis of the right bronchus. Right bronchus is encased with tumor. This appears slightly worse than recent exam. Right pleural effusion not significantly differe nt than old exam. Numerous nodular densities in the left lung consistent with additional tumor or metastatic disease. No evidence of pulmonary embolism.
--- NOTE | 2020-08-21 19:38 | CT ---
EXAMINATION TYPE: CT abdomen pelvis w con DATE OF EXAM: 08/21/2020 COMPARISON: 11/12/[address] scan HISTORY: Shortness of breath, dizziness, and blood coming out of peg tube. Hx of lung cancer. CT DLP: 865.6 mGycm Automated exposure control for dose reduction was used. CONTRAST: Performed with IV Contrast, patient injected with 100ml mL of Isovue 370. There is right pleural effusion. Heart size is normal. There is nodular 1.5 cm subpleural density pos terior left lower lobe. Liver shows no focal defect. The bile ducts are not dilated. Gallbladder appe ars normal. There is dilated stomach. There is gastrostomy tube in the anterior stomach. Spleen is in tact. There is no pancreatic mass. There is no adrenal mass. There is patchy decreased enhancement of both kidneys. There is no hydronep hrosis. There is no evidence of a renal mass. Abdominal aorta is atheromatous. There is no retroperit rose adenopathy. Bladder distends smoothly. There is retained fecal material in the rectum that brooke ures 8 cm. There is intramedullary nakul in the right femur. There is no free fluid in the pelvis. Ther e are multiple sigmoid diverticula. There is no evidence of pneumoperitoneum. There is no ascites. Lumbar vertebra show normal spacing. There is no compression fracture. There is femoral-femoral bypas s graft which appears patent. IMPRESSION: Moderately dilated stomach which could relate to gastroparesis or gastric outlet obstruction. I do no t see an obstructing mass. The gastrostomy tube is in good position. There is mixed density in the stomach. This could be ingested material but the possibility hemorrhage cannot be excluded. Moderate right pleural effusion. Left lower lobe subpleural nodule consistent with metastatic disease . Fluid in the lower esophagus consistent with reflux. Patchy decreased enhancement in the renal cortex of both kidneys of uncertain significance. This coul d relate to multifocal ischemia. No free air. Rectal fecal impaction. This appears new compared to old exam.
[2020-08-21] MEDS ORDERED: HYDROmorphone 0.5 MG/0.5 ML SYRINGE IVP STA (19:39)
--- NOTE | 2020-08-21 20:02 | P.PN ---
Progress Note - Text Progress Note Date: 08/21/20 Patient reevaluated in the emergency department after CAT scan was obtained. CAT scan shows a distended stomach with contents consistent with hemorrhage in the lumen. PEG tube seen at the lower images and does not appear to be eroding into the abdominal wall. No obvious aortoenteric fistula seen. Patient taken back to the emergency department room. Clinical scenario and CAT scan images discussed with the patient's son. While we were talking Dr. Giraldo called and was able to speak with the patient's son as well. The patient's son Dennis had an opportunity to speak with his brother about options of either surgical exploration or comfort measures at this point. They have decided to proceed with comfort measures which I believe is appropriate given the patient's underlying chronic medical condition and current acute upper GI bleed. Discuss case with Dr. Dee who will put orders in for comfort measures at this point.
--- NOTE | 2020-09-03 08:20 | CDI ---
Documentation Clarification Form Date: 09/03/2020 08:01:30 AM From: Fabiola JimenezINDRA goyal, CCDS Admit Date: 08/21/2020 02:37:00 PM Patient Name: Bolivar Hua Visit Number: [id number] Discharge Date: 08/21/2020 11:52:00 PM ATTENTION: The Clinical Documentation Specialists (CDI) and [facility] Coding Staff appreciate your assistance in clarifying documentation. Please respond to the clarification below the line at the bottom and electronically sign. The CDI & [facility] Coding staff will review the response and follow-up if needed. Please note: Queries are made part of the Legal Health Record. If you have any questions, please contact the author of this message via ITS. Dr. Layo Llanos: Anemia is documented in the 08/21 ED note under the Clinical Impression without further specificity. History/Risk Factors: Lung cancer treated with chemo & radiation and RUL resection, recurrent multiple nodules with concerns for recurrence, started immunotherapy , Cancer has spread to throat, right upper lobe restricting air flow to lung; DM, Hypertension, Hyperlipidemia, Bilateral macular degeneration, Right Carotid Stenosis status post Endarterectomy, Paralyzed right vocal cord, Former smoker. Clinical indicators: Presented to the ED 08/21 via EMS with dizziness, SOB since lung cancer diagnosis, worse with exertion. Had some pain around PEG tube site.(PEG tube inserted . Diagnosed with anemia & Upper GI Bleed. Surgery consulted: Etiology of bleeding unknown Subsequent Surgery Progress Note: CT scan shows a distended stomach with contests consistent with hemorrhage in the lumen. 08/21 VS: T 97.3*, P 101^,R 22, BP 77/53, PO 97 RA - 2L nc Hemoglobin 08/21: 9.3* - 5.6* Hematocrit 08/21 26.5* - 16.3 LAB: WBC 3.3*, RBC1.88*, Pl Ct 98*, Lymph 0.43*, D Dimer 1.27^, Na 133*, K 5.3*, BUN 44^, Glucose 137^, Total Bili 1.5^, Total Protein 6.0*, Albumin 3.2*. Gastric Occult Blood: Positive Treatment: IV fluid 500 mls @ 999 mls/hr q31M, INH Duoneb, IV Levophed, 2 units PRBCs, BiPAP ordered, not applied. O2 2Lnc. In order to capture the severity of condition, please clarify the type of anemia and etiology if known:. Acute blood loss anemia Acute on chronic blood loss anemia Chronic blood loss anemia Drug induced anemia Anemia due to malignancy Nutritional anemia Unable to determine Other, please specify (Last Form Revision: November 2019) Acute blood loss anemia MTDD
--- NOTE | 2020-09-03 08:28 | CDI ---
Documentation Clarification Form Date: 09/03/2020 08:21:31 AM From: Fabiola PopeJimenezINDRA goyal, CCDS Admit Date: 08/21/2020 02:37:00 PM Patient Name: Bolivar Hua Visit Number: [id number] Discharge Date: 08/21/2020 11:52:00 PM ATTENTION: The Clinical Documentation Specialists (CDI) and [facility] Coding Staff appreciate your assistance in clarifying documentation. Please respond to the clarification below the line at the bottom and electronically sign. The CDI & [facility] Coding staff will review the response and follow-up if needed. Please note: Queries are made part of the Legal Health Record. If you have any questions, please contact the author of this message via ITS. Dr. Layo Llanos: Per the 08/21 Surgery Consult: "... the exact etiology for the bleeding, pain and respiratory failure is unclear..." History/Risk Factors: Lung cancer treated with chemo & radiation and RUL resection, recurrent multiple nodules with concerns for recurrence, started immunotherapy , Cancer has spread to throat, right upper lobe restricting air flow to lung; DM, Hypertension, Hyperlipidemia, Bilateral macular degeneration, Right Carotid Stenosis status post Endarterectomy, Paralyzed right vocal cord, Former smoker. Clinical indicators: Presented to the ED 08/21 via EMS with dizziness, SOB since lung cancer diagnosis, worse with exertion. Had some pain around PEG tube site.(PEG tube inserted . Diagnosed with anemia & Upper GI Bleed. Surgery consulted: Etiology of bleeding unknown Subsequent Surgery Progress Note: CT scan shows a distended stomach with contests consistent with hemorrhage in the lumen. 08/21 VS: T 97.3*, P 101^,R 22, BP 77/53, PO 97 RA - 2L nc Hemoglobin 08/21: 9.3* - 5.6* Hematocrit 08/21 26.5* - 16.3 LAB: WBC 3.3*, RBC1.88*, Pl Ct 98*, Lymph 0.43*, D Dimer 1.27^, Na 133*, K 5.3*, BUN 44^, Glucose 137^, Total Bili 1.5^, Total Protein 6.0*, Albumin 3.2*. 08/21 Blood Gas: ABG pH 7.52^, pCO2 30*, pO2 115^, Total CO2 25^, O2 Sat 98.3^ Gastric Occult Blood: Positive Treatment: IV fluid 500 mls @ 999 mls/hr q31M, INH Duoneb, IV Levophed, 2 units PRBCs, BiPAP ordered, not applied. O2 2Lnc. In your professional opinion, can you please clarify if these findings signify one of the following conditions? Acute Respiratory Failure Acute on Chronic Respiratory Failure Chronic Respiratory Failure Other, please specify Unable to determine Specificity: If known, further specify (if known): o With hypercapnia? (pCO2 >50 and pH <7.35) o With hypoxia? (pO2 <60 mm Hg or SpO2 <91% on room air) (Last Query Form Revision: May 2019) __Acute respiratory failure MTDD
--- NOTE | 2020-09-03 08:41 | CDI ---
Documentation Clarification Form Date: 09/03/2020 08:36:36 AM From: Fabiola JimenezINDRA goyal, CCDS Admit Date: 08/21/2020 02:37:00 PM Patient Name: Bolivar Hua Visit Number: [id number] Discharge Date: 08/21/2020 11:52:00 PM ATTENTION: The Clinical Documentation Specialists (CDI) and [facility] Coding Staff appreciate your assistance in clarifying documentation. Please respond to the clarification below the line at the bottom and electronically sign. The CDI & [facility] Coding staff will review the response and follow-up if needed. Please note: Queries are made part of the Legal Health Record. If you have any questions, please contact the author of this message via ITS. Dr. Layo Llanos: Per the 08/21 Surgery Consult: "Elderly white male appears malnourished, very pale, tachypneic, appears critically ill. History/Risk Factors: Lung cancer treated with chemo & radiation and RUL resection, recurrent multiple nodules with concerns for recurrence, started immunotherapy , Cancer has spread to throat, right upper lobe restricting air flow to lung; DM, Hypertension, Hyperlipidemia, Bilateral macular degeneration, Right Carotid Stenosis status post Endarterectomy, Paralyzed right vocal cord, Former smoker. Clinical indicators: Presented to the ED 08/21 via EMS with dizziness, SOB since lung cancer diagnosis, worse with exertion. Had some pain around PEG tube site.(PEG tube inserted . Diagnosed with anemia & Upper GI Bleed. Patient's monitor showed asystole, he was made DNR & Comfort Care by his family and in the ED. Surgery consulted: Etiology of bleeding unknown Subsequent Surgery Progress Note: CT scan shows a distended stomach with contests consistent with hemorrhage in the lumen. 08/21 VS: T 97.3*, P 101^,R 22, BP 77/53, PO 97 RA - 2L nc BMI: 19.5 Hemoglobin 08/21: 9.3* - 5.6* Hematocrit 08/21 26.5* - 16.3 LAB: WBC 3.3*, RBC1.88*, Pl Ct 98*, Lymph 0.43*, D Dimer 1.27^, Na 133*, K 5.3*, BUN 44^, Glucose 137^, Total Bili 1.5^, Total Protein 6.0*, Albumin 3.2*. 08/21 Blood Gas: ABG pH 7.52^, pCO2 30*, pO2 115^, Total CO2 25^, O2 Sat 98.3^ Gastric Occult Blood: Positive Treatment: IV fluid 500 mls @ 999 mls/hr q31M, INH Duoneb, IV Levophed, 2 units PRBCs, BiPAP ordered, not applied. O2 2Lnc. In your professional opinion, can you please clarify if these findings signify one of the following conditions? Mild Protein-Calorie Malnutrition Moderate Protein-Calorie Malnutrition Severe Protein-Calorie Malnutrition Other condition, please specify Unable to determine (Last Revision: March 2019) Moderate protein calorie malnutrition MTDD
--- NOTE | 2020-09-03 08:47 | CDI ---
Documentation Clarification Form Date: 09/03/2020 08:28:00 AM From: Fabiola JimenezINDRA goyal, CCDS Admit Date: 08/21/2020 02:37:00 PM Patient Name: Bolivar Hua Visit Number: [id number] Discharge Date: 08/21/2020 11:52:00 PM ATTENTION: The Clinical Documentation Specialists (CDI) and [facility] Coding Staff appreciate your assistance in clarifying documentation. Please respond to the clarification below the line at the bottom and electronically sign. The CDI & [facility] Coding staff will review the response and follow-up if needed. Please note: Queries are made part of the Legal Health Record. If you have any questions, please contact the author of this message via ITS. Dr. Layo Llanos: The patient presented to the ED with dizziness, admitted with Anemia and Upper GI Bleed, resuscitated with IV Levophed & 2 units PRBCs, made comfort care by family prior to being admitted to the floor and same day. History/Risk Factors: Lung cancer treated with chemo & radiation and RUL resection, recurrent multiple nodules with concerns for recurrence, started immunotherapy , Cancer has spread to throat, right upper lobe restricting air flow to lung; DM, Hypertension, Hyperlipidemia, Bilateral macular degeneration, Right Carotid Stenosis status post Endarterectomy, Paralyzed right vocal cord, Former smoker. Clinical indicators: Presented to the ED 08/21 via EMS with dizziness, SOB since lung cancer diagnosis, worse with exertion. Had some pain around PEG tube site.(PEG tube inserted . Diagnosed with anemia & Upper GI Bleed. Patient's monitor showed asystole, he was made DNR & Comfort Care by his family and in the ED. Surgery consulted: Etiology of bleeding unknown Subsequent Surgery Progress Note: CT scan shows a distended stomach with contests consistent with hemorrhage in the lumen. 08/21 VS: T 97.3*, P 101^,R 22, BP 77/53, PO 97 RA - 2L nc Hemoglobin 08/21: 9.3* - 5.6* Hematocrit 08/21 26.5* - 16.3 LAB: WBC 3.3*, RBC1.88*, Pl Ct 98*, Lymph 0.43*, D Dimer 1.27^, Na 133*, K 5.3*, BUN 44^, Glucose 137^, Total Bili 1.5^, Total Protein 6.0*, Albumin 3.2*. 08/21 Blood Gas: ABG pH 7.52^, pCO2 30*, pO2 115^, Total CO2 25^, O2 Sat 98.3^ Gastric Occult Blood: Positive Treatment: IV fluid 500 mls @ 999 mls/hr q31M, INH Duoneb, IV Levophed, 2 units PRBCs, BiPAP ordered, not applied. O2 2Lnc. In your professional opinion, can you please specify if the following was present? Cardiogenic Shock o Cause Hypovolemic Shock o Cause Other, please specify Unable to determine (Last Revision: June 2017) Hypovolemic shock MTDD
== END 2020-08-21 23:52 | disposition expired | DRG 377 ==
LOC: EC 11:50 → 3SCARD 14:37 → 2SICU 18:37
PROVIDERS: ADMIT Family Medicine; ATTEND Family Medicine
PROC: 0D9670Z Drainage of Stomach with Drainage Device, Via Natural or Artificial Opening (ICD-10-PCS; principal; 2020-08-21)
PROC: 5A09357 Assistance with Respiratory Ventilation, Less than 24 Consecutive Hours, Continuous Positive Airway Pressure (ICD-10-PCS; 2020-08-21)
PROC: 3E033XZ Introduction of Vasopressor into Peripheral Vein, Percutaneous Approach (ICD-10-PCS; 2020-08-21)
DX: K92.2 Gastrointestinal hemorrhage, unspecified (principal); J96.00 Acute respiratory failure, unspecified whether with hypoxia or hypercapnia; J90 Pleural effusion, not elsewhere classified; C34.11 Malignant neoplasm of upper lobe, right bronchus or lung; C78.89 Secondary malignant neoplasm of other digestive organs; D62 Acute posthemorrhagic anemia; Z68.1 Body mass index [BMI] 19.9 or less, adult; E44.0 Moderate protein-calorie malnutrition; Z51.5 Encounter for palliative care; Z66 Do not resuscitate; I46.9 Cardiac arrest, cause unspecified; J38.01 Paralysis of vocal cords and larynx, unilateral; D69.6 Thrombocytopenia, unspecified; E11.9 Type 2 diabetes mellitus without complications; E78.5 Hyperlipidemia, unspecified; I10 Essential (primary) hypertension; Z79.51 Long term (current) use of inhaled steroids; Z79.82 Long term (current) use of aspirin; F41.9 Anxiety disorder, unspecified; Z20.828 Contact with and (suspected) exposure to other viral communicable diseases; Z79.899 Other long term (current) drug therapy; K44.9 Diaphragmatic hernia without obstruction or gangrene; R03.1 Nonspecific low blood-pressure reading; K21.9 Gastro-esophageal reflux disease without esophagitis; H35.30 Unspecified macular degeneration; G44.009 Cluster headache syndrome, unspecified, not intractable; R13.10 Dysphagia, unspecified; R57.1 Hypovolemic shock; Z80.6 Family history of leukemia; Z87.891 Personal history of nicotine dependence; Z93.1 Gastrostomy status; Z92.21 Personal history of antineoplastic chemotherapy; Z92.3 Personal history of irradiation; Z90.2 Acquired absence of lung [part of]; Z82.3 Family history of stroke; Z82.0 Family history of epilepsy and other diseases of the nervous system; Z88.2 Allergy status to sulfonamides; Z91.041 Radiographic dye allergy status; Z91.048 Other nonmedicinal substance allergy status
CPT/HCPCS: 36415; 71046; 71275; 74177; 80053; 82271; 83605; 83735; 84484; 85025; 85379; 85610; 85730; 86850; 86900; 86901; 86920; 87635; 93005; 94640; 94660; 96361; 96365; 99291